=== PATIENT | male | born 1965 | race African-American/Black ===

== ENCOUNTER 2020-07-07 09:51 | Outpatient (REF) | payer MEDICARE, MEDICAID, SELFPAY ==
[2020-07-07 12:02] LABS: PSA,Total (Free>4and<10) 4.53 ng/mL (0.00-4.00)
[2020-07-10 12:17] LABS: Free Prostate Spec Ag 0.7 ng/mL; Percent Free Prostate Spec Ag 16 % (calc) (>25); Prostate Specific Ag Total 4.5 ng/mL (< OR = 4.0)
== END 2020-07-07 09:52 | disposition home or self-care (01) ==
LOC: HO.LAB 09:51
PROVIDERS: PCP Internal Medicine; Visit Provider Urology
DX: R97.20 Elevated prostate specific antigen [PSA] (principal); Z12.5 Encounter for screening for malignant neoplasm of prostate
CPT/HCPCS: 84153

== ENCOUNTER 2020-08-02 14:24 | Outpatient (REF) | payer MEDICARE, MEDICAID, SELFPAY ==
[2020-08-02 15:11] LABS: Influenza A PCR NEGATIVE (Negative); Influenza B PCR NEGATIVE (Negative); Resp Syncy Virus RNA Qual PCR NEGATIVE (Negative); SARS COV2 PCR INHOUSE POSITIVE (Negative)
== END 2020-08-02 14:25 | disposition home or self-care (01) ==
LOC: HO.LNP 14:24
PROVIDERS: Visit Provider Internal Medicine
DX: Z20.828 Contact with and (suspected) exposure to other viral communicable diseases (principal); R05 Cough; R09.89 Other specified symptoms and signs involving the circulatory and respiratory systems
CPT/HCPCS: 0241U

== ENCOUNTER 2020-08-06 10:24 | Emergency (ER) | payer MEDICARE, MEDICAID, SELFPAY ==
[2020-08-06 10:39] VITALS: BP 153/83; PULSE 75; RESP 20; TEMP 37.2; O2SAT 96; BMI 34.5
--- NOTE | 2020-08-06 11:17 | ECG_ITS ---
Test Reason : SOB Blood Pressure : / mmHG Vent. Rate : 072 BPM Atrial Rate : 072 BPM P-R Int : 140 ms QRS Dur : 082 ms QT Int : 344 ms P-R-T Axes : 039 012 061 degrees QTc Int : 376 ms Normal sinus rhythm Nonspecific T wave abnormality Abnormal ECG When compared with ECG of 19-SEP-2016 12:45, QT has shortened Referred By: Tash Kumar Electronically Signed By:NICOLE MORENO MD
--- NOTE | 2020-08-06 11:17 | XR_ITS ---
EXAMINATION: XR CHEST CLINICAL INFORMATION: Covid positive. Cough. COMPARISON: 07/21/19. 06/18/19. TECHNIQUE: Frontal view of the chest was obtained. FINDINGS: No significant abnormality is noted involving the heart, lungs, mediastinum, bony thorax or soft tissues. No focal consolidation is demonstrated. XR/XR chest 1V IMPRESSION: Unremarkable examination.
--- NOTE | 2020-08-06 11:25 | CT_ITS ---
EXAMINATION: CT HEAD WITHOUT CONTRAST CLINICAL INFORMATION: Headache with history of stroke and Covid. COMPARISON: None TECHNIQUE: Contiguous axial imaging was performed from the skull base to vertex without intravenous administration of contrast. This CT examination was performed using dose optimization techniques as appropriate, variously including the following: *Automated exposure control *Adjustment of mA and/or kV according to patient size (this includes techniques or standardized protocols for targeted exams where dose is matched to indication/reason for exam; i.e. extremities or head) *Use of iterative reconstruction technique DLP: 684 mGy-cm FINDINGS: There is no evidence of acute intracranial hemorrhage or territorial infarction. There is an old right MCA territory infarction/encephalomalacia. There is lacunar infarction the posterior limb of right internal capsule. No abnormal mass effect or midline shift is seen. Rao to white matter differentiation is well preserved. No extra-axial fluid collections are identified. The right lateral ventricle is slightly prominent secondary to encephalomalacia. Otherwise the lateral ventricles are not enlarged but asymmetrical. There is no abnormal attenuation within the brain parenchyma. The osseous structures and soft tissues are normal. The mastoid air cells and visualized portions of the paranasal sinuses are well aerated. There is mild paradoxical right middle turbinate with mehreen bullosa. CT/CT head/brain wo con IMPRESSION: No acute intracranial process. Right frontal lobe encephalomalacia and a lacunar infarction right posterior limb internal capsule. Mild prominence of right lateral ventricle secondary to encephalomalacia.
[2020-08-06] MEDS: Butalb/Acetamin/Caff 50/325/40 TABLET 2 TAB PO (11:32)
[2020-08-06 11:48] LABS: Basophils Percent Auto 0.3 % (0-2); Hematocrit 38.5 % (42-52); Hemoglobin 12.9 g/dl (14.0-18.0); Imm Gran Abs Auto 0.02 X10*3/uL (0.00-0.03); Imm Gran Pct Auto 0.6 % (0.0-0.4); Lymphocytes Absolute Auto 0.6 X10*3/uL (1.2-4.9); Lymphocytes Percent Auto 18.3 % (20-40); MANUAL DIFF FLAG SCAN; Mean Corpuscular HGB Conc 33.5 g/dl (31.0-36.0); Mean Corpuscular Hemoglobin 29.7 pg (27.0-33.0); Mean Corpuscular Volume 88.7 fL (80-98); Mean Platelet Volume 10.7 fL (9.4-12.4); Monocytes Absolute Auto 0.3 X10*3/uL (0.1-1.2); Monocytes Percent Auto 7.4 % (2-11); Neutrophils Absolute Auto 2.6 X10*3/uL (2.0-8.3); Neutrophils Percent Auto 73.4 % (45-73); Platelet Count 153 X10*3/uL (160-400); Red Blood Count 4.34 X10*6/uL (4.60-5.80); SCAN SMEAR FLAG 1; White Blood Count 3.5 X10*3/uL (4.8-10.8)
[2020-08-06 12:05] LABS: INTERNATIONAL NORM RATIO 1.1 (0.9-1.1); Prothrombin Time 13.4 SEC (10.8-13.0)
[2020-08-06 12:08] LABS: Alanine Aminotransferase 21 U/L (0-40); Albumin Level 3.9 g/dL (3.5-5.0); Alkaline Phosphatase 36 U/L (39-117); Anion Gap 14 (12-20); Aspartate Amino Transferase 20 U/L (5-37); Bilirubin Direct 0.2 mg/dL (0.0-0.5); Bilirubin Total 0.6 mg/dL (0.0-1.0); Blood Urea Nitrogen 8 mg/dL (9-16); Calcium 8.2 mg/dL (8.4-10.2); Carbon Dioxide 27 mmol/L (22-29); Chloride 98 mmol/L (96-108); Creatinine Clr Calc Pharmacy 84.4; Estimated Glomerular Filt Rate > 60; Glucose Random 199 mg/dL (60-115); Magnesium 1.5 mg/dL (1.6-2.6); Potassium 3.8 mmol/l (3.3-5.1); Sodium 135 mmol/L (135-145); Total Protein 7.1 g/dL (6.5-8.0)
[2020-08-06 12:09] LABS: SLIDE REVIEW VERIFIED
[2020-08-06 12:14] LABS: B Type Natriuretic Peptide 32 pg/mL (<100)
--- NOTE | 2020-08-06 13:08 | ED_ITS ---
HPI - Headache General Chief Complaint: Headache Stated Complaint: covid +, headache Time Seen by Provider: 08/06/20 10:49 Source: patient Mode of arrival: ambulatory Limitations: no limitations History of Present Illness HPI Narrative: 54yoM c PMHx of CVA c residual right sided weakness, DM, HTN and depression who was recently dx c COVID-19 on friday presenting to the ED c c/o of a headache to the right sided of his head since he found out he had covid and a intermittent productive cough. Reports the headache started gradually and it feels like a pressure in sensation. Denies this occurring during intercourse, while eating, or during exertion or activity. Denies known CO2 exposure. Denies recent tick bites. Denies recent spinal/epidural procedure. Denies new medications. Denies any other symptom complaints or concerns at this time Related Data Previous Rx's Medication Instructions Recorded azithromycin See Rx Instructions .ROUTE 08/06/20 .COMPLEX #6 tab lowqoqecrp-veilesldubqpq-lqcc 1 cap PO Q8H PRN #10 cap 08/06/20 [Fioricet] Allergies Allergy/AdvReac Type Severity Reaction Status Date / Time No Known Allergies Allergy Verified 08/06/20 10:45 [No Known Allergies*] Review of Systems Review of Systems: Constitutional : No changes in activity, No lethargy, No recent prior head injury, No agitation, No increased fussiness ENT/Mouth : No Ear Pain, No Nasal discharge/drainage Eyes: No Eye Pain, No Swelling, No Redness, No Foreign Body, No Vision Changes Cardiovascular : No Chest Pain, No SOB Respiratory : + Cough/sputum production Gastrointestinal : No Nausea, No Vomiting, No abdominal Pain Genitourinary : No Dysuria, No Urinary Frequency, No Urinary Incontinence, No Urgency, No Flank Pain Musculoskeletal : No joint pain, No neck stiffness, No back pain/injury Skin : No lacerations Neuro : No unsteady gait, No Paresthesias, No Loss of Consciousness, No altered mental status, No dizziness, + Headache Denies past medical history of HIV, recent trauma, coagulopathy, recent spinal/ epidural procedure, new medication, URI symptoms, close contacts with similar symptoms, tick bite, or known CO2 exposure. Yes all other systems are reviewed and are negative PMFSH Past Medical History Attestation statement: The following information was validated with the patient. Medical History Depression Diabetes HTN (hypertension) Stroke Social History Social History Smoked in Last 30 Days: No Use of substances other than those prescribed or required for medical reasons: No Advance Directives: No Advance Directives Information Provided: No Physical Exam Vital Signs: Vital Signs: Last Vital Signs Temp 99.0 F 08/06/20 10:39 Pulse 75 08/06/20 10:39 Resp 20 08/06/20 10:39 BP 153/83 H 08/06/20 10:39 Pulse Ox 96 08/06/20 10:39 Body Mass Index 34.5 Vital signs have been reviewed as normal and appeared to be correct. Blood pressure normal. Heart rate normal. Respiration rate normal. Temperature normal. Oxygen saturation normal. Appearance: Alert. Oriented X3. No acute distress. Head: Normal external exam. Normocephalic. Atraumatic. Able to rotate head bilaterally. Eyes: PERRLA. EOMI. No nystagmus noted. Conjunctiva and sclera normal. Eyelids n ormal. Corneal reflex normal. ENT: EAC normal. TM's Normal. Hearing normal. Pharynx normal. Uvula midline. tongue midline. Moist mucous membranes. No trismus noted. No drooling noted. No muffled voice noted. Neck: Normal inspection. Neck supple. FROM. No adenopathy. Thyroid Normal. No meningeal signs. No neck mass noted. CVS: Normal heart rate and rhythm. Heart sound normal. No murmurs noted. Pulses normal throughout. Respiratory: No respiratory distress. Painless inspiration. Breath sounds normal. No wheezes/rales/rhonchi noted. Chest nontender. No accessory muscle usage noted or decreased air movement noted. Back: Full range of motion noted. Skin: Skin warm and dry. Normal skin color. Normal skin turgor. No rashes/lesions/lacerations noted. Extremities: Extremities exhibit normal range of motion. Extremities nontender. Able to shrug shoulders bilaterally and keep up against resistance. Neuro: Oriented X 3. Patient has residual left sided weakness at baseline pr patient. Otherwise no new motor/sensory deficit. Cranial nerves II-XI intact bilaterally. Facial strength normal. Normal cognition. Speech mildly slurred. Gait WNL per patient. Strength 5/5 throughout on the entire right sided. Left sided weakness at baseline. No tremor noted. No fasciculations noted. Muscle tone WNL per patient. No asterixis noted. Zgirrz-ww-fcme test normal. Heel to tineo test normal. No rigidity noted. NIHSS score 0. Course Course Course Narrative: - Patient afebrile, resting comfortably in no distress. Non- toxic appearing. Patient denies any recent trauma/injury to head. Neurological exam shows no deficits and at baseline per patient. BP WNL. Denies any changes in vision. Patient ambulates without increased difficulty. Given the history, and physical - most likely diagnosis: Migraine ROJAS. Although due to patient reporting that this is longer than her usual headaches will obtain CT scan of brain to evaluate for any acute processes. Will treat pain. Will d/c with ruddy mak and advised to follow - up with PCP. Patient demonstrated good understanding of signs and symptoms to return to ED for further testing should sx worsen. gradual onset ROJAS. SAH: unlikely given gradual onset Intracranial bleed: unlikely given neg trauma Meningitis: unlikely given pt afebrile, neg stiff neck. Exam without signs of meningismus Temporal arteritis: Unlikely given Neg jaw claudication, no temporal tenderness or nodularity on exam. Cerebral venous thrombosis: unlikely given no h/o hypercoaguable state, no chronic head/neck infection. Reevaluation(s) Reevaluation #1: patient was given p.o. for your ascend reported he felt better. Magnesium mildly low therefore given p.o. magnesium otherwise all other labs are within normal limits. EKG normal sinus rhythm no acute ischemic changes noted. CT scan of brain revealed chronic changes no acute processes noted. Chest x-ray within normal limits no acute processes noted. Therefore will DC home instructions to return if any new or worsening symptoms symptomatic treatment along with instructions to follow-up with primary care provider. Vani oshea's agrees the plan. MDM - Headache Medical Records Attestation: I reviewed the patient's medical records. Lab Data Attestation: I reviewed the patient's lab results. Result diagrams: 08/06/20 11:35 08/06/20 11:35 Labs: Lab Results 08/06/20 08/06/20 08/06/20 Range/Units 11:35 11:35 11:35 WBC 3.5 L (4.8-10.8) X10*3/uL RBC 4.34 L (4.60-5.80) X10*6/uL Hgb 12.9 L (14.0-18.0) g/dl Hct 38.5 L (42-52) % MCV 88.7 (80-98) fL MCH 29.7 (27.0-33.0) pg MCHC 33.5 (31.0-36.0) g/dl RDW 12.0 (11.0-16.0) % Plt Count 153 L (160-400) X10*3/uL MPV 10.7 (9.4-12.4) fL Immature Gran % (Auto) 0.6 H (0.0-0.4) % Neut % (Auto) 73.4 H (45-73) % Lymph % (Auto) 18.3 L (20-40) % [place] % (Auto) 7.4 (2-11) % Eos % (Auto) 0.0 (0-4) % Baso % (Auto) 0.3 (0-2) % Lymph # (Auto) 0.6 L (1.2-4.9) X10*3/uL [place] # (Auto) 0.3 (0.1-1.2) X10*3/uL Eos # (Auto) 0.0 (0.0-0.4) X10*3/uL Baso # (Auto) 0.0 (0.0-0.2) X10*3/uL Abs Immat Gran (auto) 0.02 (0.00-0.03) X10*3/uL Absolute Neuts (auto) 2.6 (2.0-8.3) X10*3/uL Absolute Nucleated RBC 0.000 (0.0-0.012) X10*3/uL Nucleated RBC % (auto) 0.0 (0.0-0.2) /100WBC Smear Tech's Comments VERIFIED Hold Purple Top SEE NOTE PT 13.4 H (10.8-13.0) SEC INR 1.1 (0.9-1.1) Sodium (135-145) mmol/L Potassium (3.3-5.1) mmol/l Chloride (96-108) mmol/L Carbon Dioxide (22-29) mmol/L Anion Gap (12-20) BUN (9-16) mg/dL Creatinine (0.5-1.4) mg/dL Estim Creat Clear Calc Estimated GFR Random Glucose (60-115) mg/dL Calcium (8.4-10.2) mg/dL Magnesium (1.6-2.6) mg/dL Total Bilirubin (0.0-1.0) mg/dL Direct Bilirubin (0.0-0.5) mg/dL AST (5-37) U/L ALT (0-40) U/L Alkaline Phosphatase (39-117) U/L B-Natriuretic Peptide (<100) pg/mL Total Protein (6.5-8.0) g/dL Albumin (3.5-5.0) g/dL 08/06/20 08/06/20 Range/Units 11:35 11:35 WBC (4.8-10.8) X10*3/uL RBC (4.60-5.80) X10*6/uL Hgb (14.0-18.0) g/dl Hct (42-52) % MCV (80-98) fL MCH (27.0-33.0) pg MCHC (31.0-36.0) g/dl RDW (11.0-16.0) % Plt Count (160-400) X10*3/uL MPV (9.4-12.4) fL Immature Gran % (Auto) (0.0-0.4) % Neut % (Auto) (45-73) % Lymph % (Auto) (20-40) % [place] % (Auto) (2-11) % Eos % (Auto) (0-4) % Baso % (Auto) (0-2) % Lymph # (Auto) (1.2-4.9) X10*3/uL [place] # (Auto) (0.1-1.2) X10*3/uL Eos # (Auto) (0.0-0.4) X10*3/uL Baso # (Auto) (0.0-0.2) X10*3/uL Abs Immat Gran (auto) (0.00-0.03) X10*3/uL Absolute Neuts (auto) (2.0-8.3) X10*3/uL Absolute Nucleated RBC (0.0-0.012) X10*3/uL Nucleated RBC % (auto) (0.0-0.2) /100WBC Smear Tech's Comments Hold Purple Top PT (10.8-13.0) SEC INR (0.9-1.1) Sodium 135 (135-145) mmol/L Potassium 3.8 (3.3-5.1) mmol/l Chloride 98 (96-108) mmol/L Carbon Dioxide 27 (22-29) mmol/L Anion Gap 14 (12-20) BUN 8 L (9-16) mg/dL Creatinine 0.96 (0.5-1.4) mg/dL Estim Creat Clear Calc 84.4 Estimated GFR > 60 Random Glucose 199 H (60-115) mg/dL Calcium 8.2 L (8.4-10.2) mg/dL Magnesium 1.5 L (1.6-2.6) mg/dL Total Bilirubin 0.6 (0.0-1.0) mg/dL Direct Bilirubin 0.2 (0.0-0.5) mg/dL AST 20 (5-37) U/L ALT 21 (0-40) U/L Alkaline Phosphatase 36 L (39-117) U/L B-Natriuretic Peptide 32 (<100) pg/mL Total Protein 7.1 (6.5-8.0) g/dL Albumin 3.9 (3.5-5.0) g/dL Imaging Data CT scan of brain: Attestation: I personally reviewed and interpreted this imaging study as follows: Radiologist's impression: IMPRESSION: No acute intracranial process. Right frontal lobe encephalomalacia and a lacunar infarction right posterior limb internal capsule. Mild prominence of right lateral ventricle secondary to encephalomalacia. Chest x-ray: Attestation: I personally reviewed and interpreted this imaging study as follows: Radiologist's impression: IMPRESSION: Unremarkable examination. ECG Data Attestation: I personally reviewed and interpreted this ECG as follows: ECG interpretation date: 08/06/20 ECG interpretation time: 11:25 Interpretation: normal sinus rhythm with a ventricular rate of 72 with normal [place] interval with nonspecific T-wave abnormalities otherwise no acute ischemic changes noted. Similar when compared to prior 09/19/2016 Discharge Plan Discharge Clinical Impression: Headache, COVID-19, Low blood magnesium Patient Disposition: Home, Self-Care Instructions: Acute Headache (ED), COVID-19 (Coronavirus Disease 2019) (ED) Prescriptions: New azithromycin 250 mg tablet See Rx Instructions .ROUTE .COMPLEX Qty: 6 RF: 0 hjmckwgpoh-ukihdcdjfuofc-sboc [Fioricet] 50-300-40 mg capsule 1 cap PO Q8H PRN (Reason: pain) Qty: 10 RF: 0 Referrals: Phillip Floyd MD [Primary Care Provider] - 2 days Interventions: ED Discharge Assessment Last Done: 08/06/20 13:26 Discharge Date/Time: 08/06/20 13:28 Print Language: [place]
[2020-08-06] MEDS: Magnesium Oxide 400 MG TABLET PO (13:23)
== END 2020-08-06 13:28 | disposition home or self-care (01) ==
PROVIDERS: Physician Assistant Medical; Emergency Provider Internal Medicine; PCP Internal Medicine
DX: U07.1 COVID-19 (principal); R79.89 Other specified abnormal findings of blood chemistry
CPT/HCPCS: 36415; 70450; 71045; 80048; 80076; 83735; 83880; 85025; 85610; 93005; 99283; 99284

== ENCOUNTER 2020-09-07 19:59 | Emergency (ER) | payer MEDICARE, MEDICAID, SELFPAY ==
[2020-09-07 20:40] VITALS: PULSE 77; RESP 16; TEMP 37; O2SAT 97
--- NOTE | 2020-09-07 21:16 | ED.EYEPROB ---
HPI - Eye Problem General Chief complaint: Eye Problems Stated complaint: eye pain Time Seen by Provider: 09/07/20 21:15 Source: patient Mode of arrival: ambulatory Limitations: no limitations History of Present Illness HPI Narrative: 54 y/o male presenting with right eye pain for the last 3 days. He noticed some upper lid swelling that started today. He denies pain of the globe, denies foreign body sensation, vision changes, headache. No trauma. No fever or chills. He denies weakness, numbness, facial pain. He has a history of a stoke 10 years ago and reports chronic deficits. chief complaint: eye pain Onset (ago): day(s) (3) Onset description: gradual Duration: constant Location: right eye Eye Symptoms: redness and pain Place: home Mechanism: none Severity: moderate If Pain, Quality: aching Associated symptoms: none Treatments Prior to Arrival: none Related Data Previous Rx's Medication Instructions Recorded azithromycin See Rx Instructions .ROUTE 08/06/20 .COMPLEX #6 tab kbvvqpzhbx-rxdouajgabefx-ndpn 1 cap PO Q8H PRN #10 cap 08/06/20 [Fioricet] cefpodoxime 400 mg PO BID 10 Days #40 tab 09/07/20 doxycycline monohydrate 100 mg PO BID #20 cap 09/07/20 erythromycin 0.5 inch OPHTHALMIC (EYE) BID #3.5 09/07/20 g Allergies Allergy/AdvReac Type Severity Reaction Status Date / Time No Known Allergies Allergy Verified 08/06/20 10:45 [No Known Allergies*] Review of Systems Review of Systems: Constitutional: No Fever, No Chills ENT/Mouth: No sore throat, No Rhinorrhea Eyes: + Eye Pain, + Swelling, + Redness, No vision changes, No discharge Cardiovascular: No Chest Pain, No SOB Respiratory: No Cough, No Sputum, No Wheezing, No dyspnea Gastrointestinal: No Nausea, No Vomiting, No Diarrhea, No abdominal Pain Musculoskeletal: No joint pain, No Myalgias Skin: No Skin Lesions, No rash Neuro: No Weakness, No Numbness, No Dizziness, No Headache PMFSH Past Medical History Attestation statement: The following information was validated with the patient. Medical History Depression Diabetes HTN (hypertension) Stroke Social History Social History Alcohol intake: never Smoked in Last 30 Days: No Use of substances other than those prescribed or required for medical reasons: No Advance Directives: No Advance Directives Information Provided: Yes Physical Exam Vital Signs: Vital Signs: Last Vital Signs Temp 98.6 F 09/07/20 20:40 Pulse 77 09/07/20 20:40 Resp 16 09/07/20 20:40 Pulse Ox 97 09/07/20 20:40 Body Mass Index 3.4 Appearance: Alert. Oriented X3. No acute distress. Eyes: right upper eye lid with mild edema extending laterally and superiorly with mild erythema and warmth. Pupils equal, round and reactive to light. EOMI. moderate injection laterally without discharge. Fluroescene exam with small linear abrasion at 9oclock, no ulcerations ENT: Pharynx normal. Neck: Normal inspection. Neck supple. Skin: Skin warm and dry. Normal skin color. Normal skin turgor. No rashes. Neuro: Oriented X 3. Ambulated with cane, right hand contracture. Course Course Course Narrative: 54 y/o male presenting with right eye pain x3 days. Mild erythema and warmth on exam - will treat wtih dual coverage for periorbital cellulitis. Small corneal abrasion as well. Not septic appearing. He agrees to follow up with PCP tomorrow and instructed to return to ER if symptoms worsen. Stable for d/c. Discharge Plan Discharge Clinical Impression: Corneal abrasion Qualifiers: Encounter type: initial encounter Laterality: right Qualified Code(s): S05.01XA - Injury of conjunctiva and corneal abrasion without foreign body, right eye, initial encounter Periorbital cellulitis Qualifiers: Laterality: right Qualified Code(s): L03.213 - Periorbital cellulitis Patient Disposition: Home, Self-Care Instructions: Corneal Abrasion (ED), Periorbital Cellulitis in Adults (ED) Additional Instructions: You have a skin infection that is starting around your eye. Take the prescribed medications for this. You also have a small scratch on your eye. Use the antibiotic drops for this. Follow up with your doctor tomorrow. If your symptoms worsen come back to the ER right away. Prescriptions: New doxycycline monohydrate 100 mg capsule 100 mg PO BID Qty: 20 RF: 0 cefpodoxime 200 mg tablet 400 mg PO BID 10 Days Qty: 40 RF: 0 erythromycin 5 mg/gram (0.5 %) ointment 0.5 inch ophthalmic (eye) BID Qty: 3.5 RF: 0 No Action azithromycin 250 mg tablet See Rx Instructions .ROUTE .COMPLEX Qty: 6 RF: 0 nzaldvawxj-vepkuudajmlhh-lmxc [Fioricet] 50-300-40 mg capsule 1 cap PO Q8H PRN (Reason: pain) Qty: 10 RF: 0 Referrals: Bob Birmingham [Physician] - 2 days Interventions: ED Discharge Assessment Last Done: 09/07/20 21:47 Discharge Date/Time: 09/07/20 22:12 Print Language: [place]ian
--- NOTE | 2020-09-07 21:45 | PC.NURSE ---
patient a&ox3, vss, pt awaiting to discharge, drum saw operator called, will continue to monitor.
[2020-09-07] MEDS: Fluorescein Sodium STRIP 1 STRIP EYE-BOTH (21:49)
[2020-09-07] MEDS: Tetracaine HCl/PF 0.5% Oph Sol 4 ML DROPS 1 DROP EYE-RIGHT (21:49)
--- NOTE | 2020-09-07 21:49 | PC.NURSE ---
medications given by the provider
== END 2020-09-07 22:12 | disposition home or self-care (01) ==
PROVIDERS: Emergency Provider Emergency Medicine; PCP Internal Medicine
DX: S05.01XA Injury of conjunctiva and corneal abrasion without foreign body, right eye, initial encounter (principal); X58.XXXA Exposure to other specified factors, initial encounter; L03.213 Periorbital cellulitis; E11.9 Type 2 diabetes mellitus without complications; I10 Essential (primary) hypertension; Y93.9 Activity, unspecified; Y92.9 Unspecified place or not applicable; Y99.9 Unspecified external cause status
CPT/HCPCS: 99283

== ENCOUNTER → 2020-09-12 13:13 | Outpatient (BNVA) | payer MEDICARE, MEDICAID, SELFPAY | PROVIDERS: PCP Internal Medicine; Referring Provider Internal Medicine; Visit Provider Urology | DX: R97.20 Elevated prostate specific antigen [PSA] (principal) | CPT/HCPCS: Q3014 ==

== ENCOUNTER 2020-10-09 10:55 | Outpatient (REF) | payer MEDICARE, MEDICAID, SELFPAY ==
[2020-10-09 13:52] LABS: MANUAL DIFF FLAG NO
[2020-10-09 13:59] LABS: Basophils Percent Auto 0.5 % (0-2); Eosinophils Absolute Auto 0.1 X10*3/uL (0.0-0.4); Eosinophils Percent Auto 1.6 % (0-4); Hematocrit 39.1 % (42-52); Hemoglobin 13.3 g/dl (14.0-18.0); Imm Gran Abs Auto 0.01 X10*3/uL (0.00-0.03); Imm Gran Pct Auto 0.3 % (0.0-0.4); Lymphocytes Absolute Auto 1.2 X10*3/uL (1.2-4.9); Lymphocytes Percent Auto 31.9 % (20-40); Mean Corpuscular Volume 88.1 fL (80-98); Mean Platelet Volume 11.4 fL (9.4-12.4); Monocytes Absolute Auto 0.4 X10*3/uL (0.1-1.2); Monocytes Percent Auto 9.7 % (2-11); Neutrophils Absolute Auto 2.1 X10*3/uL (2.0-8.3); Platelet Count 244 X10*3/uL (160-400); Red Blood Count 4.44 X10*6/uL (4.60-5.80); Red Cell Distribution Width 12.6 % (11.0-16.0); White Blood Count 3.8 X10*3/uL (4.8-10.8)
[2020-10-09 14:19] LABS: Glucose Urine UA NEG (NEG); Leukocyte Esterase Urine NEG (NEG); Nitrite Urine NEG (NEG); Specific Gravity - Urine 1.015 (1.005-1.025); Urine Blood NEG (NEG); Urine Ketones NEG (NEG); Urine Protein 1+ MG/DL (NEG-TRACE)
[2020-10-09 14:27] LABS: Alanine Aminotransferase 16 U/L (0-40); Albumin Level 4.2 g/dL (3.5-5.0); Alkaline Phosphatase 43 U/L (39-117); Anion Gap 11 (12-20); Aspartate Amino Transferase 14 U/L (5-37); Bilirubin Total 0.9 mg/dL (0.0-1.0); Blood Urea Nitrogen 10 mg/dL (9-16); Calcium 9.1 mg/dL (8.4-10.2); Carbon Dioxide 33 mmol/L (22-29); Chloride 100 mmol/L (96-108); Estimated Glomerular Filt Rate > 60; Glucose Random 91 mg/dL (60-115); Potassium 3.9 mmol/L (3.3-5.1); Sodium 140 mmol/L (135-145); Total Protein 7.6 g/dL (6.5-8.0)
[2020-10-09 14:35] LABS: Estimated Average Glucose 146 mg/dL; Hemoglobin A1c % 6.7 %
[2020-10-09 14:49] LABS: Appearance Urine CLEAR; Color Urine YELLOW
[2020-10-09 14:56] LABS: PSA,Total (Free>4and<10) 6.59 ng/mL (0.00-4.00)
[2020-10-09 14:56] LABS: Creatinine Urine 161.76 mg/dL; Microalbum/Creatinine Ratio Ur 268.2 ug/mg cr
[2020-10-09 15:07] LABS: RBC Urine 0-2 /HPF (0); WBC Urine 0-2 /HPF (0-4)
[2020-10-10 11:03] LABS: Free Prostate Spec Ag 0.9 ng/mL; Percent Free Prostate Spec Ag 15 % (calc) (>25); Prostate Specific Ag Total 5.9 ng/mL (< OR = 4.0)
== END 2020-10-09 10:56 | disposition home or self-care (01) ==
LOC: HO.10HDL 10:55
PROVIDERS: Visit Provider Internal Medicine
DX: E11.9 Type 2 diabetes mellitus without complications (principal); I10 Essential (primary) hypertension; E78.00 Pure hypercholesterolemia, unspecified; R97.20 Elevated prostate specific antigen [PSA]; Z12.5 Encounter for screening for malignant neoplasm of prostate
CPT/HCPCS: 36415; 80053; 81001; 81003; 82043; 83036; 84153; 84154; 85025

== ENCOUNTER 2020-11-17 11:31 | Emergency (ER) | payer MEDICARE, MEDICAID, SELFPAY ==
--- NOTE | ~2020-11-17 | XR_ITS ---
EXAMINATION: LEFT LOWER LEG ANKLE AND FOOT X-RAY CLINICAL INFORMATION: Pain post fall COMPARISON: None TECHNIQUE: 2 views of the left lower leg and 3 views of the left foot and ankle FINDINGS: Left ankle: There is an oblique nondisplaced fracture of the lateral malleolus. No other fracture is seen. The ankle mortise is normal. There is lateral soft tissue swelling. Left foot: Bone alignment is normal. No fracture or dislocation is seen. Joint spaces are normal. There are calcaneal spurs. Soft tissues are normal. Left lower leg: Bone alignment is normal. No fracture or dislocation is seen. Joint spaces and soft tissues are normal. XR/XR tibia fibula LT 2V IMPRESSION: Oblique nondisplaced fracture of the lateral malleolus otherwise unremarkable exam.
--- NOTE | ~2020-11-17 | XR_ITS ---
EXAMINATION: LEFT LOWER LEG ANKLE AND FOOT X-RAY CLINICAL INFORMATION: Pain post fall COMPARISON: None TECHNIQUE: 2 views of the left lower leg and 3 views of the left foot and ankle FINDINGS: Left ankle: There is an oblique nondisplaced fracture of the lateral malleolus. No other fracture is seen. The ankle mortise is normal. There is lateral soft tissue swelling. Left foot: Bone alignment is normal. No fracture or dislocation is seen. Joint spaces are normal. There are calcaneal spurs. Soft tissues are normal. Left lower leg: Bone alignment is normal. No fracture or dislocation is seen. Joint spaces and soft tissues are normal. XR/XR foot LT min 3V IMPRESSION: Oblique nondisplaced fracture of the lateral malleolus otherwise unremarkable exam.
--- NOTE | ~2020-11-17 | XR_ITS ---
EXAMINATION: LEFT LOWER LEG ANKLE AND FOOT X-RAY CLINICAL INFORMATION: Pain post fall COMPARISON: None TECHNIQUE: 2 views of the left lower leg and 3 views of the left foot and ankle FINDINGS: Left ankle: There is an oblique nondisplaced fracture of the lateral malleolus. No other fracture is seen. The ankle mortise is normal. There is lateral soft tissue swelling. Left foot: Bone alignment is normal. No fracture or dislocation is seen. Joint spaces are normal. There are calcaneal spurs. Soft tissues are normal. Left lower leg: Bone alignment is normal. No fracture or dislocation is seen. Joint spaces and soft tissues are normal. XR/XR ankle LT 2V IMPRESSION: Oblique nondisplaced fracture of the lateral malleolus otherwise unremarkable exam.
[2020-11-17 11:57] VITALS: BP 162/75; PULSE 66; RESP 16; TEMP 36.9; O2SAT 97; BMI 34.3
--- NOTE | 2020-11-17 12:31 | ED_ITS ---
HPI - Extremity Injury (Lower) General Chief Complaint: Extremity Injury, Lower Stated Complaint: FALL AT HOME Time Seen by Provider: 11/17/20 12:05 Source: patient Mode of arrival: ambulatory History of Present Illness HPI Narrative: 55-year-old male with a past medical history of depression, diabetes, hypertension, CVA with left-sided residual deficits, presenting to the ED complaining of left ankle/foot pain and swelling s/p mechanical fall down 1 step last night. Also reported abrasion to left knee. Reports put foot down on last step and sneaker got caught/leg gave out, fell to ground, denies hitting head or LOC. reports associated numbness in left lower extremity. States left lower extremity chronically swollen, unchanged. Denies symptoms prior to fall. Denies new weakness, headache, injury to the area MD complaint: ankle injury, foot injury and fall Related Data Home Medications Medication Instructions Recorded Confirmed amlodipine 10 mg tablet mg PO 09/12/20 citalopram 20 mg tablet mg PO 09/12/20 insulin glargine 100 unit/mL (3 unit SUBCUT 09/12/20 mL) subcutaneous pen metoprolol tartrate 50 mg tablet mg PO 09/12/20 pen needle, diabetic 31 gauge x #50 ea 09/12/2011/14 pen needle, diabetic 31 gauge x #1200 ea 09/12/2001/14 Previous Rx's Medication Instructions Recorded azithromycin See Rx Instructions .ROUTE 08/06/20 .COMPLEX #6 tab uzlzpngmti-yjzlagozihjhw-iaub 1 cap PO Q8H PRN #10 cap 08/06/20 [Fioricet] cefpodoxime 400 mg PO BID 10 Days #40 tab 09/07/20 doxycycline monohydrate 100 mg PO BID #20 cap 09/07/20 erythromycin 0.5 inch OPHTHALMIC (EYE) BID #3.5 09/07/20 g Allergies Allergy/AdvReac Type Severity Reaction Status Date / Time No Known Allergies Allergy Verified 08/06/20 10:45 [No Known Allergies*] Review of Systems Review of Systems: Constitutional: No Fever, No Chills Cardiovascular: No Chest Pain, No SOB Gastrointestinal: No Nausea, No Vomiting Musculoskeletal: + joint pain, No Myalgias, + Joint Swelling Skin: No Skin Lesions, No rash Neuro: No Weakness, + Numbness, No Paresthesias, no headache, no LOC, no head trauma Yes all other systems are reviewed and are negative Neurologic: Denies Sensory deficit (Neuro) [facility] Past Medical History Attestation statement: The following information was validated with the patient. Medical History Depression Diabetes Elevated PSA HTN (hypertension) Stroke Social History Social History Alcohol intake: never Smoked in Last 30 Days: No Use of substances other than those prescribed or required for medical reasons: No Advance Directives: No Advance Directives Information Provided: No Physical Exam Vital Signs: Vital Signs: Last Vital Signs Temp 98.4 F 11/17/20 11:57 Pulse 66 11/17/20 11:57 Resp 16 11/17/20 11:57 BP 162/75 H 11/17/20 11:57 Pulse Ox 97 11/17/20 11:57 Body Mass Index 34.3 Const: General: cooperative, healthy appearing and comfortable Michael entation/consciousness: patient oriented x3 Limitations: no limitations HENMT: Head: Yes normal to inspection Ears: hearing grossly normal bilaterally General nose exam: Normal external nose present Face and sinus: Yes normal facial exam Eyes: General: appearance normal, both eyes and all related structures EOM: EOMs intact bilaterally Neck: Neck: Yes normal visual inspection and Yes no meningeal signs Resp: Effort & Inspection: normal respiratory effort Cardio: Rate: regular rate Peripheral pulses: dorsalis pedis present Skin: Other: Small abrasion noted to left knee Rashes: no rashes Neuro: Other: Sensation intact to light touch General: patient oriented x3, tone normal, moves all extremities and no meningeal signs Gait exam (Neuro): Normal gait present Sensory Exam: No Sensory deficit (Neuro) Extrem: Other: Left lower extremity with notable chronic swelling (per patient) Left knee nontender, FROM intact Left tibia/fibula nontender, left ankle with +ttp > medial malleolus. With limited ROM secondary to pain Left foot with mild tenderness greater medially. FROM intact to toes. Sensation intact to light touch. Neurovascularly intact General: Yes normal to inspection Course Course Course Narrative: -1300--ED care transferred to [facility] pending imaging results MDM - Extremity Injury (Lower) MDM Narrative Medical decision making narrative: Rule out fracture/dislocation vs sprain Discharge Plan Discharge Prescriptions: No Action azithromycin 250 mg tablet See Rx Instructions .ROUTE .COMPLEX Qty: 6 RF: 0 dhndedrkks-lihntsisckrbg-vzku [Fioricet] 50-300-40 mg capsule 1 cap PO Q8H PRN (Reason: pain) Qty: 10 RF: 0 doxycycline monohydrate 100 mg capsule 100 mg PO BID Qty: 20 RF: 0 cefpodoxime 200 mg tablet 400 mg PO BID 10 Days Qty: 40 RF: 0 erythromycin 5 mg/gram (0.5 %) ointment 0.5 inch ophthalmic (eye) BID Qty: 3.5 RF: 0 Lantus Solostar U-100 Insulin 100 unit/mL (3 mL) insulin pen subcut RF: 0 metoprolol tartrate 50 mg tablet PO RF: 0 amlodipine 10 mg tablet PO RF: 0 citalopram 20 mg tablet PO RF: 0 (DME) pen needle, diabetic 31 gauge x 3/16 needle See Rx Instructions ea subcut .MEDSUPPLY Qty: 50 RF: 0 (DME) pen needle, diabetic 31 gauge x 5/16 needle See Rx Instructions ea .ROUTE .MEDSUPPLY Qty: 1200 RF: 0
== END 2020-11-17 14:26 | disposition home or self-care (01) ==
PROVIDERS: Emergency Provider Emergency Medicine Emergency Medical Services; PCP Internal Medicine
DX: S82.65XA Nondisplaced fracture of lateral malleolus of left fibula, initial encounter for closed fracture (principal); S80.212A Abrasion, left knee, initial encounter; W10.8XXA Fall (on) (from) other stairs and steps, initial encounter; E11.9 Type 2 diabetes mellitus without complications; I10 Essential (primary) hypertension; Z86.73 Personal history of transient ischemic attack (TIA), and cerebral infarction without residual deficits; Y93.89 Activity, other specified; Y92.018 Other place in single-family (private) house as the place of occurrence of the external cause; Y99.9 Unspecified external cause status; Z79.4 Long term (current) use of insulin
CPT/HCPCS: 73590; 73600; 73630; 99283

== ENCOUNTER 2020-11-27 08:35 | Outpatient (REF) | payer MEDICARE, MEDICAID, SELFPAY ==
--- NOTE | ~2020-11-27 | XR_ITS ---
EXAMINATION: XR ANKLE, LEFT CLINICAL INFORMATION: Pain. COMPARISON: 11/17/2020 TECHNIQUE: AP, lateral, and mortise views of the left ankle. FINDINGS: There is again noted to be a nondisplaced oblique fracture through the left lateral malleolus. There is no widening of the medial joint space. There is a large amount of soft tissue swelling seen about the ankle and foot. No significant periosteal new bone formation is appreciated. XR/XR ankle LT min 3V IMPRESSION: No change in alignment of nondisplaced lateral malleolar fracture.
== END 2020-11-27 08:36 | disposition home or self-care (01) ==
LOC: HO.HOSX 08:35
PROVIDERS: Visit Provider Physician Assistant
DX: S82.63XA Displaced fracture of lateral malleolus of unspecified fibula, initial encounter for closed fracture (principal); M25.572 Pain in left ankle and joints of left foot
CPT/HCPCS: 73610; 99202

== ENCOUNTER → 2020-11-28 09:14 | Outpatient (BNVA) | payer MEDICARE, MEDICAID, SELFPAY | PROVIDERS: PCP Internal Medicine; Visit Provider Urology | DX: R97.20 Elevated prostate specific antigen [PSA] (principal); N40.1 Benign prostatic hyperplasia with lower urinary tract symptoms; R35.1 Nocturia | CPT/HCPCS: 99202 ==

== ENCOUNTER → 2020-11-28 09:45 | Outpatient (BNVA) | payer MEDICARE, MEDICAID, SELFPAY | PROVIDERS: PCP Internal Medicine; Visit Provider Urology ==

== ENCOUNTER 2020-12-07 11:27 | Outpatient (REF) | payer MEDICARE, MEDICAID, SELFPAY ==
[2020-12-07 11:46] VITALS: BMI 34.2
[2020-12-07 11:47] VITALS: BP 145/71; PULSE 69; RESP 20; TEMP 37.3; O2SAT 98
--- NOTE | 2020-12-07 12:21 | MHC.SHP ---
Pre-Procedural Eval Section A The patient is an INPATIENT: No Changes since office visit: No Cold of Flu in the past 2 weeks, No New Medical Problems, No Changes in Medication and No Patient answered all questions The History & Physical has been completed within 30 days and I have reviewed it.: Yes Section B Chief Complaint: ELEVATED PSA, PROSTATE BX IN MINOR Allergies: Allergies Allergy/AdvReac Type Severity Reaction Status Date / Time No Known Allergies Allergy Verified 08/06/20 10:45 [No Known Allergies*] Plan Diagnosis/Plan: Unchanged (prostate biopsy) I have reviewed the history and physical and performed a pertinent physical examination on my patient. No changes have occurred unless specified.
--- NOTE | 2020-12-07 12:22 | W.PM.OPN ---
Operative Note Operative Note Date of Service: 12/07/20 Narrative: Preoperative diagnosis: Elevated PSA Postoperative diagnosis: Elevated PSA Procedure: 1. transrectal ultrasound measurement of prostate 2. transrectal ultrasound-guided pudendal nerve block 3. transrectal ultrasound-guided prostate biopsy 12 core Surgeon: Dr. Khurram Rodriguez Anesthetic: Local Indications for procedure: Elevated PSA 6.6 Procedure: After informed consent was verified, the patient was brought into the procedure area and lay left-hand side down on the table. Patient identity confirmed. Perioperative antibiotics confirmed. Gel was placed per rectum Ultrasound probe was placed per rectum The prostate was measured in 3 dimensions Total volume equals 40 gm There were no cystic structures and no calcifications noted and the prostate was homogeneous in nature A ultrasound-guided pudendal nerve block was performed using 10 cc of 1% lidocaine. 8 cc was placed at the base and 2 cc of the apex. A 12 core biopsy was performed with 6 cores each side. Two cores were taken at the apex, mid and base. Cores were spaced between lateral and medial. He tolerated the procedure well. Was able to ambulate to bathroom after 5 minutes. Printed instructions regarding antibiotic use and common side effects such as low-grade temperature and bleeding were given.
== END 2020-12-07 11:28 | disposition home or self-care (01) ==
LOC: HO.MS 11:27
PROVIDERS: PCP Internal Medicine; Visit Provider Urology
PROC: (CPT 55700; principal; 2020-12-07 12:00)
DX: C61 Malignant neoplasm of prostate (principal); R97.20 Elevated prostate specific antigen [PSA]; I10 Essential (primary) hypertension; E11.9 Type 2 diabetes mellitus without complications; Z79.4 Long term (current) use of insulin; Z79.899 Other long term (current) drug therapy
CPT/HCPCS: 55700; 76942; 88305

== ENCOUNTER → 2020-12-15 12:11 | Outpatient (BNVA) | payer MEDICARE, MEDICAID, SELFPAY | PROVIDERS: PCP Hospitalist; Visit Provider Urology | DX: C61 Malignant neoplasm of prostate (principal); N40.1 Benign prostatic hyperplasia with lower urinary tract symptoms; R35.1 Nocturia | CPT/HCPCS: Q3014 ==

== ENCOUNTER 2020-12-25 07:31 | Outpatient (REF) | payer MEDICARE, MEDICAID, SELFPAY ==
--- NOTE | ~2020-12-25 | XR_ITS ---
EXAMINATION: XR ANKLE, LEFT CLINICAL INFORMATION: Fracture COMPARISON: Previous x-ray October 2020 TECHNIQUE: AP, lateral, and mortise views of the left ankle. FINDINGS: There is a nondisplaced fracture of the distal fibular shaft. There is some increased bony callus formation suggestive of evidence of healing. No other fracture is seen. There is no significant soft tissue swelling, particularly medially. There may be an ankle joint effusion. XR/XR ankle LT min 3V IMPRESSION: Healing left distal fibular shaft fracture. Significant soft tissue swelling, particularly medially and probable ankle joint effusion.
== END 2020-12-25 07:32 | disposition home or self-care (01) ==
LOC: HO.HOSX 07:31
PROVIDERS: Visit Provider Physician Assistant
DX: S82.63XA Displaced fracture of lateral malleolus of unspecified fibula, initial encounter for closed fracture (principal); M25.579 Pain in unspecified ankle and joints of unspecified foot
CPT/HCPCS: 73610; 99202; 99212

== ENCOUNTER 2021-01-18 09:16 | Outpatient (REF) | payer MEDICARE, MEDICAID, SELFPAY ==
[2021-01-18 10:15] LABS: MANUAL DIFF FLAG NO
[2021-01-18 10:18] LABS: Basophils Percent Auto 0.8 % (0-2); Eosinophils Percent Auto 0.8 % (0-4); Hematocrit 38.3 % (42-52); Hemoglobin 13.1 g/dl (14.0-18.0); Imm Gran Abs Auto 0.01 X10*3/uL (0.00-0.03); Imm Gran Pct Auto 0.3 % (0.0-0.4); Lymphocytes Absolute Auto 1.3 X10*3/uL (1.2-4.9); Lymphocytes Percent Auto 34.5 % (20-40); Mean Corpuscular HGB Conc 34.2 g/dl (31.0-36.0); Mean Corpuscular Hemoglobin 29.7 pg (27.0-33.0); Mean Corpuscular Volume 86.8 fL (80-98); Mean Platelet Volume 11.4 fL (9.4-12.4); Monocytes Absolute Auto 0.4 X10*3/uL (0.1-1.2); Monocytes Percent Auto 10.6 % (2-11); Platelet Count 186 X10*3/uL (160-400); Red Blood Count 4.41 X10*6/uL (4.60-5.80); Red Cell Distribution Width 12.9 % (11.0-16.0); White Blood Count 3.8 X10*3/uL (4.8-10.8)
[2021-01-18 10:43] LABS: Alanine Aminotransferase 29 U/L (0-40); Albumin Level 4.3 g/dL (3.5-5.0); Alkaline Phosphatase 47 U/L (39-117); Anion Gap 9 (12-20); Aspartate Amino Transferase 16 U/L (5-37); Bilirubin Total 1.1 mg/dL (0.0-1.0); Blood Urea Nitrogen 10 mg/dL (9-16); Calcium 9.8 mg/dL (8.4-10.2); Carbon Dioxide 33 mmol/L (22-29); Chloride 101 mmol/L (96-108); Estimated Glomerular Filt Rate > 60; Glucose Random 145 mg/dL (60-115); Potassium 3.9 mmol/L (3.3-5.1); Sodium 139 mmol/L (135-145); Total Protein 7.5 g/dL (6.5-8.0)
[2021-01-18 11:08] LABS: Estimated Average Glucose 214 mg/dL; Hemoglobin A1c % 9.1 %
== END 2021-01-18 09:17 | disposition home or self-care (01) ==
LOC: HO.LAB 09:16
PROVIDERS: PCP Internal Medicine; Visit Provider Internal Medicine
DX: E11.9 Type 2 diabetes mellitus without complications (principal); I10 Essential (primary) hypertension; Z86.73 Personal history of transient ischemic attack (TIA), and cerebral infarction without residual deficits
CPT/HCPCS: 36415; 80053; 82043; 83036; 85025

== ENCOUNTER 2021-02-05 07:56 | Outpatient (REF) | payer MEDICARE, MEDICAID, SELFPAY ==
--- NOTE | ~2021-02-05 | XR_ITS ---
EXAMINATION: XR ANKLE, LEFT CLINICAL INFORMATION: Displaced fracture of lateral malleolus. COMPARISON: None TECHNIQUE: AP, lateral, and mortise views of the left ankle. FINDINGS: There is moderate bimalleolar soft tissue swelling with and oblique minimally displaced fracture of distal fibula. The ankle mortise and subtalar joints are normal. There is a small calcaneal heel and retrocalcaneal enthesophytes. Soft tissues are normal XR/XR ankle LT min 3V IMPRESSION: No significant change in oblique distal fibular fracture with minimal displaced fracture compared to previous study 12/25/2020. The ankle mortise and subtalar joints are normal. There is a small calcaneal heel and retrocalcaneal enthesophyte.
== END 2021-02-05 07:57 | disposition home or self-care (01) ==
LOC: HO.HOSX 07:56
PROVIDERS: Visit Provider Physician Assistant
DX: S82.62XD Displaced fracture of lateral malleolus of left fibula, subsequent encounter for closed fracture with routine healing (principal)
CPT/HCPCS: 73610; 99212

== ENCOUNTER 2021-02-09 11:00 | Outpatient (RCR) | payer MEDICARE, MEDICAID, SELFPAY ==
--- NOTE | 2021-01-05 14:22 | MHC.PT.EP ---
[facility] [place] Office [place] Office [place] Office [address] Aleks Mathias [address] [phone] F: [phone] F: [phone] F: [phone] F: [phone] Physical Therapy Plan of Care Date of Evaluation: Date of Surgery: Diagnosis: LATERAL MALLEOLAR FX L ANKLE Assessment: Pt IS 55 YO M REFERRED TO PT FROM ORTHO S/P L LAT MALLEOLUS FX (LAST XRAY SHOWING HEALING/CALLUS FORMATION). Pt REPORTS PAIN L ANKLE (CORINNE AT NIGHT WHEN HAS RESTING TREMOR S/P STROKE FROM 2007). Pt PRESENTS WITH SIGNIF SWELLING L LE AND SIGNIFICANTLY LIMITED L ANKLE ROM/STRENGTH. Pt WITH INCREASED TONE L SIDE OF BODY. Pt SHOULD BENEFIT FROM PT TO HELP WITH PAIN AND INFLAMMATION (OT FOR LYMPHEDEMA TREATMENT...SPOKE WITH THOMSA FROM OT) AND POSSIBLE USE OF AFO. WILL WORK ON GENTLE STRENGTHENING AND ROM TO HELP WITH FUNCTIONAL MOBILITY AND HELP DECREASE PAIN Frequency and Duration: The patient will be seen 2X/WK X 4 WKS Short Term Goals: 1. I HEP WITH DC EX PLAN 2. Pt TO WEAR AFO WITH GOOD RESULTS Retirement Goals: 1. DECREASED EDEMA NOTED L LE WITH USE COMPRESSION GARMENT 2. DECREASED L ANKLE PAIN (corinne AT NIGHT) AT LEAST 50% Treatment Plan: Modalities to reduce pain, spasms and effusion. Manual therapy to restore motion and function. Therapeutic exercise to improve strength and flexibility. Neuromuscular re-education for posture and balance. Therapeutic activities to return to functional activities of daily living. Electronically signed by: WENDIE WHATLEY PT Please sign and return to therapist. Thank you for your referral.
--- NOTE | 2021-07-04 14:47 | MHC.PT.DC ---
[facility] [place] Office [place] Office [place] Office [address] Aleks Mathias [address] [phone] F: [phone] F: [phone] F: [phone] F: [phone] Physical Therapy Discharge Report Diagnosis: LATERAL MALLEOLAR FX L ANKLE Date of Surgery: Date of Evaluation: 01/05/21 Date of Discharge: 07/04/21 Treatments to Date: 6 Cancellations to Date: 0 No Shows to Date: 2 Discharge Status: Recommend MD Follow-up Discharge Summary: PER ASSESSMENT FROM LAST PT NOTE PER [employer]ENT ON 02/09/21:' All ex to diya. Minimal ROM due to LE edema. Pt to begin OT for edema.' THEN NO FURTHER PT APPTS SCHEDULED (?) Electronically signed by: WENDIE WHATLEY PT Please sign and return to therapist. Thank you for your referral.
== END 2021-07-04 14:47 | disposition home or self-care (01) ==
LOC: HO.PT 11:00
PROVIDERS: PCP Internal Medicine; Visit Provider Physician Assistant
DX: S82.63XD Displaced fracture of lateral malleolus of unspecified fibula, subsequent encounter for closed fracture with routine healing (principal)
CPT/HCPCS: 97110; 97162

== ENCOUNTER 2021-03-30 14:00 | Outpatient (RCR) | payer MEDICARE, MEDICAID, SELFPAY ==
--- NOTE | 2021-05-01 08:40 | MHC.OT.DC ---
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 May benefit from swell pads. Pt no showed follow up appt and has not rescheduled Pt will need to replace his compression wrap in 6 -12 mo. Recommend foot and calf wrap and possible swell pads for ankle Electronically Signed By: Cece Fischer OT CHT CLT Reviewed/agree with student documentation: N/A Therapist: Please Sign and return to therapist, thank you for your referral.
== END 2022-01-01 10:07 | disposition home or self-care (01) ==
LOC: HO.OT 14:00
PROVIDERS: PCP Internal Medicine; Visit Provider Internal Medicine
DX: G81.94 Hemiplegia, unspecified affecting left nondominant side (principal); I89.0 Lymphedema, not elsewhere classified
CPT/HCPCS: 97110; 97140; 97166

== ENCOUNTER 2021-04-24 09:33 | Outpatient (REF) | payer MEDICARE, MEDICAID, SELFPAY ==
[2021-04-24 10:56] LABS: PSA,Total (Free>4and<10) 3.12 ng/mL (0.00-4.00)
== END 2021-04-24 09:34 | disposition home or self-care (01) ==
LOC: HO.10HDL 09:33
PROVIDERS: PCP Internal Medicine; Visit Provider Urology
DX: N40.1 Benign prostatic hyperplasia with lower urinary tract symptoms (principal); N13.8 Other obstructive and reflux uropathy
CPT/HCPCS: 36415; 84153

== ENCOUNTER → 2021-05-01 11:43 | Outpatient (BNVA) | payer MEDICARE, MEDICAID, SELFPAY | PROVIDERS: PCP Internal Medicine; Visit Provider Urology | DX: Z13.89 Encounter for screening for other disorder (principal) | CPT/HCPCS: Q3014 ==

== ENCOUNTER 2021-07-09 08:57 | Outpatient (REF) | payer MEDICARE, MEDICAID, SELFPAY ==
[2021-07-09 10:40] LABS: Alanine Aminotransferase 25 U/L (0-40); Albumin Level 4.3 g/dL (3.5-5.0); Alkaline Phosphatase 44 U/L (39-117); Anion Gap 11 (12-20); Aspartate Amino Transferase 17 U/L (5-37); Bilirubin Total 0.9 mg/dL (0.0-1.0); Blood Urea Nitrogen 10 mg/dL (9-16); Carbon Dioxide 31 mmol/L (22-29); Chloride 103 mmol/L (96-108); Cholesterol 150 mg/dL; Estimated Glomerular Filt Rate > 60; Glucose Fasting 60 mg/dL (60-99); HDL Cholesterol 36 mg/dL; LDL Cholesterol Calculated 98 mg/dl; Potassium 3.6 mmol/L (3.3-5.1); Sodium 141 mmol/L (135-145); Total Protein 7.6 g/dL (6.5-8.0); Triglycerides 82 mg/dL
[2021-07-09 10:56] LABS: Creatinine Urine 140.76 mg/dL; Microalbum/Creatinine Ratio Ur 264.2 ug/mg cr
[2021-07-12 14:26] LABS: Vitamin D 25-OH, D2 <4 ng/mL; Vitamin D 25-OH, D3 21 ng/mL; Vitamin D 25-OH, Total 21 ng/mL (30-100)
== END 2021-07-09 08:58 | disposition home or self-care (01) ==
LOC: HO.10HDL 08:57
PROVIDERS: Visit Provider Internal Medicine
DX: E55.9 Vitamin D deficiency, unspecified (principal); E11.9 Type 2 diabetes mellitus without complications; E78.5 Hyperlipidemia, unspecified
CPT/HCPCS: 36415; 80053; 80061; 82043; 82306

== ENCOUNTER 2021-10-04 10:13 | Outpatient (REF) | payer MEDICARE, MEDICAID, SELFPAY ==
[2021-10-04 14:37] LABS: PSA,Total (Free>4and<10) 2.25 ng/mL (0.00-4.00)
== END 2021-10-04 10:14 | disposition home or self-care (01) ==
LOC: HO.10HDL 10:13
PROVIDERS: Visit Provider Urology
DX: C61 Malignant neoplasm of prostate (principal); Z12.5 Encounter for screening for malignant neoplasm of prostate
CPT/HCPCS: 36415; 84153

== ENCOUNTER → 2021-10-10 13:25 | Outpatient (BNVA) | payer MEDICARE, MEDICAID, SELFPAY | PROVIDERS: PCP Internal Medicine; Visit Provider Urology | DX: N40.1 Benign prostatic hyperplasia with lower urinary tract symptoms (principal); R35.1 Nocturia | CPT/HCPCS: 99212 ==

== ENCOUNTER → 2021-10-11 10:42 | Outpatient (BNVA) | payer MEDICARE, MEDICAID, SELFPAY | PROVIDERS: PCP Internal Medicine; Referring Provider Internal Medicine; Visit Provider Internal Medicine Gastroenterology | DX: K59.09 Other constipation (principal); Z80.0 Family history of malignant neoplasm of digestive organs | CPT/HCPCS: 99202 ==

== ENCOUNTER 2021-10-23 10:11 | Day surgery (SDC) | payer MEDICARE, MEDICAID, SELFPAY ==
--- NOTE | 2021-10-19 11:30 | P.CONAN_ITS ---
Documented by User: Bella Rdz NP 10/19/21 11:32 HPI - Anesthesia Eval Consult details Narrative: 56yo M for Colonoscopy L side weakness d/t stroke 2008 [facility] Active Problems Active Problems: All Active Problems (Updated 10/12/21 @ 11:04 by Christin Adkins MD) Family history of colon cancer (Acute) Colon cancer screening (Acute) Chronic constipation (Acute) Microalbuminuria (Acute) Bicytopenia (Acute) Colon polyps (Acute) Migraines (Acute) Dyslipidemia (Acute) Fracture of left ankle, lateral malleolus (Acute) Lateral malleolar fracture (Acute) Ankle pain (Acute) Prostate cancer (Acute) Nocturia associated with benign prostatic hyperplasia (Acute) Closed high lateral malleolus fracture (Acute) Ankle pain (Acute) Elevated PSA (Acute) Depression (Acute) Diabetes (Acute) HTN (hypertension) (Acute) Stroke (Acute) COVID-19 (Acute) Past Medical History Medical History Abdominal hernia Altered bowel function Bicytopenia BPH w/o urinary obs/LUTS Colon polyps Depression Diabetes Dyslipidemia Elevated PSA HTN (hypertension) Microalbuminuria Migraines Stroke Stroke Family History Family History Mother No problems noted. Father Enlarged prostate Surgical History Surgical History H/O umbilical hernia repair History of colonoscopy Social History Social History Housing: Apartment Alcohol intake: former Patient Tobacco Use Status: Never used Tobacco e-Cigarette/Vaping Use: Never Used Second Hand Smoke Exposure: No Are you DNR?: No Advance Directives: No Advance Directives Information Provided: No Recently lost weight without trying: No service: No Current occupational status: disabled Current occupational exposures/hazards: No Meds Allergies Allergy/AdvReac Type Severity Reaction Status Date / Time No Known Allergies Allergy Verified 10/11/21 10:44 [No Known Allergies*] Home Medications Medication Instructions Recorded Confirmed Last Taken Type pen needle, diabetic 31 gauge x #50 ea 09/12/20 10/12/21 Unknown History 11/14 latanoprost 0.005 % eye drops 1 drp OPHTHALMIC (EYE) DAILY 11/28/20 10/12/21 Unknown History Exam Exam Date and Time: October 19, 2021 1130 Pertinent Lab Results Pertinent Lab Results: Laboratory Tests 07/09/21 07/13/21 09:00 10:36 WBC 4.3 L Hgb 13.3 L Hct 38.2 L Plt Count 211 Sodium 141 Potassium 3.6 Chloride 103 Carbon Dioxide 31 H BUN 10 Creatinine 0.86 Narrative Narrative: EKG 08/2020 Vent. Rate : 072 BPM ? ? Atrial Rate : 072 BPM ?? P-R Int : 140 ms? QRS Dur : 082 ms ? ? QT Int : 344 ms ? ? ? P-R-T Axes : 039 012 061 degrees ?? QTc Int : 376 ms ? Normal sinus rhythm Nonspecific T wave abnormality Abnormal ECG When compared with ECG of 19-SEP-2016 12:45, QT has shortened Assessment and Plan Assessment Anesthesia Assessment: Chart Reviewed Documented by User: oJse Ceballos MD 10/23/21 14:25 PMFSH Past Medical History Medical History Abdominal hernia Altered bowel function Bicytopenia BPH w/o urinary obs/LUTS Colon polyps Depression Diabetes Dyslipidemia Elevated PSA HTN (hypertension) Microalbuminuria Migraines Stroke Stroke Family History Family History Mother No problems noted. Father Enlarged prostate Family history of problems with anesthesia: No Surgical History Surgical History H/O umbilical hernia repair History of colonoscopy History of Problems with Anesthesia: No Social History Social History Housing: Apartment Alcohol intake: former Patient Tobacco Use Status: Never used Tobacco e-Cigarette/Vaping Use: Never Used Second Hand Smoke Exposure: No Are you DNR?: No Advance Directives: No Advance Directives Information Provided: No Recently lost weight without trying: No service: No Current occupational status: disabled Current occupational exposures/hazards: No Meds Allergies Allergy/AdvReac Type Severity Reaction Status Date / Time No Known Allergies Allergy Verified 10/11/21 10:44 [No Known Allergies*] Home Medications Medication Instructions Recorded Confirmed Last Taken Type pen needle, diabetic 31 gauge x #50 ea 09/12/20 10/12/21 Unknown History 11/14 latanoprost 0.005 % eye drops 1 drp OPHTHALMIC (EYE) DAILY 11/28/20 10/12/21 Unknown History Exam Airway Mallampati Class: II TM Dist: >3cm Neck ROM: Full Denture: Upper and Lower Assessment and Plan Assessment Anesthesia Assessment: Anesthesia Plan Discussed Final Anesthetic Review Family History of Problems with Anesthesia: No History of Problems with Anesthesia: No NPO: Yes ASA Class: III Final Preanesthetic Review: No Changes in Pt Med Stat, Meds/Allgs Chart Reviewed, Consent Obtained/Reviewed and Anes Risks/Benef Reviewed Patient Risk: Intermediate Procedure Risk: Low Anesthetic Plan Anesthetic Plan: MAC: Disposition: Standard PACU
[2021-10-23 10:41] VITALS: BP 148/93; PULSE 64; RESP 18; TEMP 36.6; O2SAT 98
[2021-10-23 10:53] LABS: Glucose, Whole Blood 89 mg/dL (60-115)
[2021-10-23 10:59] VITALS: BMI 32.5
[2021-10-23] MEDS: Lactated Ringers 1,000 ML 100 ML IVCONT (11:07)
--- NOTE | 2021-10-23 12:54 | MHC.SHP ---
Pre-Procedural Eval Section A Date of Service: 10/23/21 The patient is an INPATIENT: No Changes since office visit: Yes Patient answered all questions; No Cold of Flu in the past 2 weeks, No New Medical Problems and No Changes in Medication The History & Physical has been completed within 30 days and I have reviewed it.: Yes Section B Chief Complaint: constipation,hx of malignant neoplasm Allergies: Allergies Allergy/AdvReac Type Severity Reaction Status Date / Time No Known Allergies Allergy Verified 10/11/21 10:44 [No Known Allergies*] Plan I have reviewed the history and physical and performed a pertinent physical examination on my patient. No changes have occurred unless specified.
--- NOTE | 2021-10-23 12:55 | P.OP_ITS ---
Operative Note Operative Note Date of Service: 10/23/21 Narrative: Pre-op diagnosis: Colon cancer screen Post-op diagnosis:?other (Colon polyp diverticulosis, hemorrhoids) Procedure: COLONOSCOPY TILL CECUM WITH BIOPSIES Consent: Indications for the procedure and potential complications of bleeding, perforation, reaction to medications and missed diagnosis were discussed with the patient and informed consent was obtained. Instrument: Olympus PCF H 190 L variable stiffness pediatric colonoscope Monitoring: Vital signs and clinical assessment, intermittent blood pressure monitoring, continuous EKG monitoring, Pulse oximetry and Carbon Dioxide monitoring were done throughout the procedure. Colon withdrawl time was 25 minutes. Procedure: The patient was placed in the left lateral decubitis position and pre-procedure medications were administered. After a digital rectal examination of the ano-rectum, the video colonoscope was inserted into the rectum and advanced through the colon to the cecum. The colonoscope was slowly withdrawn in a retrograde panoramic fashion and the colon mucosa was carefully examined including a retroflexed view of the rectum. Findings and interventions are described below. Procedure Difficulty:? LLQ pressure applied to intubate the cecum Findings: Terminal Ileum: Not evaluated Cecum:? Normal Ascending Colon:? Normal Transverse Colon:? Normal Descending Colon:? Normal Sigmoid Colon:? A 7-8 mm diminutive appearing polyp in the distal sigmoid colon - biopsied.? Moderate diverticulosis Rectum:? Normal Ano-rectum:? Moderate internal hemorrhoids Colon preparation:? Good to Fair despite copious irrigation Impression and Post Procedure Diagnosis: Colonoscopy Findings: One diminutive appearing polyp was biopsied Moderate diverticulosis seen in the sigmoid colon Moderate hemorrhoids on antegrade exam. Plan: I will send a letter with pathology results Patient has an appointment on 01/31/22 in the GI Clinic with Lance Horan M.D.. Repeat Colonoscopy interval based on path results - in 5 years if polyps are ad enomatous and due to fair prep. Above findings were reviewed with the patient and colon polyps and diverticulosis handouts were given in the discharge area Surgeon: Lance Horan MD Anesthesia:?MAC (Dr Ceballos) Was an Data Processing Consultant used for this Procedure?:?Yes Data Processing Consultant:?Tamara Garcia Estimated blood loss (mL):?0 Pathology:?other (A- Sigmoid colon polyp) Condition:?stable Disposition:?PACU
[2021-10-23 15:11] VITALS: BP 109/59; PULSE 58; RESP 20; TEMP 36; O2SAT 99
== END 2021-10-23 15:57 | disposition home or self-care (01) ==
PROVIDERS: PCP Internal Medicine; Visit Provider Internal Medicine Gastroenterology
PROC: 0DJD8ZZ Inspection of Lower Intestinal Tract, Via Natural or Artificial Opening Endoscopic (ICD-10-PCS; CPT 45378; principal; 2021-10-23 12:30)
DX: Z12.11 Encounter for screening for malignant neoplasm of colon (principal); Z80.0 Family history of malignant neoplasm of digestive organs; K63.5 Polyp of colon; K57.30 Diverticulosis of large intestine without perforation or abscess without bleeding; K64.8 Other hemorrhoids; K59.09 Other constipation; K21.9 Gastro-esophageal reflux disease without esophagitis; I10 Essential (primary) hypertension; E11.9 Type 2 diabetes mellitus without complications; E78.5 Hyperlipidemia, unspecified; R97.20 Elevated prostate specific antigen [PSA]; I69.398 Other sequelae of cerebral infarction; I69.354 Hemiplegia and hemiparesis following cerebral infarction affecting left non-dominant side; Z79.4 Long term (current) use of insulin; Z79.899 Other long term (current) drug therapy
CPT/HCPCS: 45380; 82947; 88305

== ENCOUNTER 2021-11-05 09:25 | Outpatient (REF) | payer MEDICARE, MEDICAID, SELFPAY ==
[2021-11-05 10:22] LABS: MANUAL DIFF FLAG NO
[2021-11-05 10:55] LABS: Basophils Percent Auto 0.7 % (0-2); Eosinophils Absolute Auto 0.1 X10*3/uL (0.0-0.4); Eosinophils Percent Auto 2.4 % (0-4); Hematocrit 38.1 % (42.0-52.0); Imm Gran Abs Auto 0.01 X10*3/uL (0.00-0.03); Imm Gran Pct Auto 0.2 % (0.0-0.4); Lymphocytes Absolute Auto 1.6 X10*3/uL (1.2-4.9); Lymphocytes Percent Auto 36.7 % (20-40); Mean Corpuscular HGB Conc 34.1 g/dl (31.0-36.0); Mean Corpuscular Hemoglobin 29.7 pg (27.0-33.0); Mean Platelet Volume 11.2 fL (9.4-12.4); Monocytes Absolute Auto 0.4 X10*3/uL (0.1-1.2); Monocytes Percent Auto 9.9 % (2-11); Neutrophils Absolute Auto 2.1 x10*3/uL (2.0-8.3); Neutrophils Percent Auto 50.1 % (45-73); Platelet Count 188 X10*3/uL (160-400); Red Blood Count 4.38 X10*6/uL (4.60-5.80); Red Cell Distribution Width 12.7 % (11.0-16.0); White Blood Count 4.3 X10*3/uL (4.8-10.8)
[2021-11-05 10:59] LABS: Creatinine Urine 164.07 mg/dL
[2021-11-05 11:23] LABS: Alanine Aminotransferase 20 U/L (0-40); Albumin Level 4.1 g/dL (3.5-5.0); Alkaline Phosphatase 41 U/L (39-117); Anion Gap 10 (12-20); Aspartate Amino Transferase 16 U/L (5-37); Bilirubin Total 0.8 mg/dL (0.0-1.0); Blood Urea Nitrogen 11 mg/dL (9-16); Calcium 9.3 mg/dL (8.4-10.2); Carbon Dioxide 32 mmol/L (22-29); Chloride 103 mmol/L (96-108); Cholesterol 147 mg/dL; Estimated Glomerular Filt Rate > 60; Glucose Fasting 71 mg/dL (60-99); HDL Cholesterol 39 mg/dL; Iron 69 mcg/dL (45-160); LDL Cholesterol Calculated 94 mg/dl; Percent Iron Saturation 22 % (15-50); Potassium 3.5 mmol/L (3.3-5.1); Sodium 141 mmol/L (135-145); Total Iron Binding Capacity 315 mcg/dL (228-428); Total Protein 7.4 g/dL (6.5-8.0); Triglycerides 71 mg/dL; Unsaturated Iron Binding 246 ug/dL
== END 2021-11-05 09:26 | disposition home or self-care (01) ==
LOC: HO.10HDL 09:25
PROVIDERS: Visit Provider Internal Medicine
DX: E78.5 Hyperlipidemia, unspecified (principal); E11.65 Type 2 diabetes mellitus with hyperglycemia; D64.9 Anemia, unspecified; D75.89 Other specified diseases of blood and blood-forming organs; Z79.4 Long term (current) use of insulin
CPT/HCPCS: 36415; 80053; 80061; 82043; 83540; 85025

== ENCOUNTER 2021-11-12 06:05 | Day surgery (SDC) | payer MEDICARE, MEDICAID, SELFPAY ==
--- NOTE | 2021-11-09 10:41 | P.CONAN_ITS ---
Documented by User: Bella Rdz NP 11/09/21 10:44 HPI - Anesthesia Eval Consult details Narrative: 56yo M for Laser Ablation Prostate w/Green Light s/p colo 10/23/21 with TIVA L side weakness d/t stroke 2008 [facility] Active Problems Active Problems: All Active Problems (Updated 10/12/21 @ 11:04 by Christin Adkins MD) Family history of colon cancer (Acute) Colon cancer screening (Acute) Chronic constipation (Acute) Microalbuminuria (Acute) Bicytopenia (Acute) Colon polyps (Acute) Migraines (Acute) Dyslipidemia (Acute) Fracture of left ankle, lateral malleolus (Acute) Lateral malleolar fracture (Acute) Ankle pain (Acute) Prostate cancer (Acute) Nocturia associated with benign prostatic hyperplasia (Acute) Closed high lateral malleolus fracture (Acute) Ankle pain (Acute) Elevated PSA (Acute) Depression (Acute) Diabetes (Acute) HTN (hypertension) (Acute) Stroke (Acute) COVID-19 (Acute) Past Medical History Medical History Abdominal hernia Altered bowel function Bicytopenia BPH w/o urinary obs/LUTS Colon polyps Depression Diabetes Dyslipidemia Elevated PSA HTN (hypertension) Microalbuminuria Migraines Stroke Stroke Family History Family History Mother No problems noted. Father Enlarged prostate Family history of problems with anesthesia: No Surgical History Surgical History H/O umbilical hernia repair History of colonoscopy History of Problems with Anesthesia: No Social History Social History Housing: Apartment Alcohol intake: former Patient Tobacco Use Status: Never used Tobacco e-Cigarette/Vaping Use: Never Used Second Hand Smoke Exposure: No Use of substances other than those prescribed or required for medical reasons: No Are you DNR?: No Advance Directives: No Advance Directives Information Provided: Yes Advance Directives on File: No service: No Current occupational status: disabled Current occupational exposures/hazards: No Meds Allergies Allergy/AdvReac Type Severity Reaction Status Date / Time No Known Allergies Allergy Verified 10/11/21 10:44 [No Known Allergies*] Home Medications Medication Instructions Recorded Confirmed Last Taken Type pen needle, diabetic 31 gauge x #50 ea 09/12/20 10/12/21 Unknown History 11/14 latanoprost 0.005 % eye drops 1 drp OPHTHALMIC (EYE) DAILY 11/28/20 10/12/21 Unknown History Exam Exam Date and Time: November 09, 2021 1041 Pertinent Lab Results Pertinent Lab Results: Laboratory Tests 11/05/21 11/05/21 09:30 09:30 WBC 4.3 L Hgb 13.0 L Hct 38.1 L Plt Count 188 Sodium 141 Potassium 3.5 Chloride 103 Carbon Dioxide 32 H BUN 11 Creatinine 0.87 Narrative Narrative: EKG 08/2020 Vent. Rate : 072 BPM ? ? Atrial Rate : 072 BPM ?? P-R Int : 140 ms? QRS Dur : 082 ms ? ? QT Int : 344 ms ? ? ? P-R-T Axes : 039 012 061 degrees ?? QTc Int : 376 ms ? Normal sinus rhythm Nonspecific T wave abnormality Abnormal ECG When compared with ECG of 19-SEP-2016 12:45, QT has shortened Assessment and Plan Assessment Anesthesia Assessment: Chart Reviewed Final Anesthetic Review Family History of Problems with Anesthesia: No History of Problems with Anesthesia: No Documented by User: Jazmyn Sears MD 11/12/21 07:31 [facility] Past Medical History Medical History Abdominal hernia Altered bowel function Bicytopenia BPH w/o urinary obs/LUTS Colon polyps Depression Diabetes Dyslipidemia Elevated PSA HTN (hypertension) Microalbuminuria Migraines Stroke Stroke Family History Family History Mother No problems noted. Father Enlarged prostate Surgical History Surgical History H/O umbilical hernia repair History of colonoscopy Social History Social History Housing: Apartment Alcohol intake: former Patient Tobacco Use Status: Never used Tobacco e-Cigarette/Vaping Use: Never Used Second Hand Smoke Exposure: No Use of substances other than those prescribed or required for medical reasons: No Are you DNR?: No Advance Directives: No Advance Directives Information Provided: Yes Advance Directives on File: No service: No Current occupational status: disabled Current occupational exposures/hazards: No Meds Allergies Allergy/AdvReac Type Severity Reaction Status Date / Time No Known Allergies Allergy Verified 10/11/21 10:44 [No Known Allergies*] Home Medications Medication Instructions Recorded Confirmed Last Taken Type pen needle, diabetic 31 gauge x #50 ea 09/12/20 10/12/21 Unknown History 11/14 latanoprost 0.005 % eye drops 1 drp OPHTHALMIC (EYE) DAILY 11/28/20 10/12/21 Unknown History Exam Airway Mallampati Class: III TM Dist: >3cm Neck ROM: Full Partial: Upper and Lower Loose/Missing/Broken Teeth: Yes, Upper and Lower Assessment and Plan Assessment Anesthesia Assessment: Anesthesia Plan Discussed Final Anesthetic Review NPO: Yes ASA Class: III Final Preanesthetic Review: No Changes in Pt Med Stat, Meds/Allgs Chart Reviewed, Consent Obtained/Reviewed and Anes Risks/Benef Reviewed Patient Risk: Intermediate Procedure Risk: Low Anesthetic Plan Anesthetic Plan: GA Disposition: Standard PACU
[2021-11-12] VITALS (11 sets, daily range): BP systolic 123–156; BP diastolic 60–82; PULSE 60–66; RESP 16; TEMP 36.1–36.5; O2SAT 88–100; BMI 35.6
[2021-11-12] MEDS: Dextrose 5 % 250 ML IV (06:32)
[2021-11-12 06:35] LABS: Glucose, Whole Blood 58 mg/dL (60-115)
[2021-11-12] MEDS: Lactated Ringers 1,000 ML 100 ML IVCONT (06:43)
--- NOTE | 2021-11-12 06:57 | PC.NURSE ---
Addendum entered by David Peacock RN 11/12/21 08:36: POC 100. Dr. Sears notified. order received for second bag of 250mL D5W to infuse. Original Note: pt POC 58 at 0632. with use of lang interpreter pt denies dizziness, lightheadedness or blurred vision, pt states i feel fine . Dr. Page notified and orders received for 250mL D5% KVO started. Will recheck POC after D5% infused.
[2021-11-12 07:23] LABS: Glucose, Whole Blood 100 mg/dL (60-115)
--- NOTE | 2021-11-12 07:37 | MHC.SHP ---
Pre-Procedural Eval Section A Date of Service: 11/12/21 The patient is an INPATIENT: No Changes since office visit: No Cold of Flu in the past 2 weeks, No New Medical Problems, No Changes in Medication and No Patient answered all questions The History & Physical has been completed within 30 days and I have reviewed it.: Yes Section B Chief Complaint: Benign Prostatic Hyperplasia Details of Present Illness: Laser enucleation Relevant Social History: None Present Medications: see Short Stay Collaborative assessment Medical History: No relevant PMH History of Previous Operations: No relevant previous surgery Allergies: Allergies Allergy/AdvReac Type Severity Reaction Status Date / Time No Known Allergies Allergy Verified 10/11/21 10:44 [No Known Allergies*] Review of Systems Sugical H&P ROS: Negative: Constitution, Cardiovascular, Respiratory, Neurological, Psychiatric, Hem-Onc, Allergic/Immunologic, Gastrointestinal, Genitourinary, Musculoskeletal, Integumentary, Endocrine and Eyes/Ears/Nose/Throat Exam Surgical H&P Exam: Normal: HEENT, Normal: Heart, Normal: Lungs, Normal: Extremities, Normal: Abdomen, Normal: Skin and Normal: Neurological Plan Diagnosis/Plan: Unchanged (Laser enucelation) I have reviewed the history and physical and performed a pertinent physical examination on my patient. No changes have occurred unless specified.
--- NOTE | 2021-11-12 08:49 | P.OP_ITS ---
Operative Note Operative Note Date of Service: 11/12/21 Narrative: PreOperative Diagnosis: Bladder outlet obstruction Post Operative Diagnosis: Bladder outlet obstruction Procedure: GreenLight Laser Enucleation of the prostate Surgeon: Dr Khurram Rodriguez Anesthesia: General Indications for procedure: 56-year-old male. Tight bladder neck History of bladder outlet obstruction. Treated with alpha-aravind and other medications. Still with symptoms. On cystoscopy in office has tight bladder neck. Recommendation for prostate procedure with laser enucleation of prostate. It has been discussed. Focus was placed on development of retrograde examination which is a normal part of this procedure. Procedure: After informed consent was verified the patient was brought to the operating room and placed in a supine position. Anesthesia was administered per protocol. Patient was placed in modified dorsal lithotomy position and prepped and draped in a sterile fashion. Safety pause time-out was confirmed. Antibiotics have been given. Twenty-four Mongolian laser cystoscope was inserted per urethra. No abnormalities found the anterior posterior urethra. The bladder was filled on both ureteric orifices were seen in normal position away from our area of interest. Using a GreenLight laser settings of 80 w incisions were made at the 5 and 7 o'clock position. They were taken down and then laterally on each side. They were brought from the bladder neck down to the level of the veru. These defined the lateral aspects of the median lobe area. The median lobe was ablated and enucleated tissue removed. Once the median lobe area had been cleaned attention was directed to the lateral lobes. We started with the patient's left lateral lobe. Firstly the 05:00 o'clock groove was further developed. This was moved in the lateral position to undermine the tissue on the lateral side. Focus was then placed on the laser at the 1 o'clock position in developing a secondary groove down to the level of bladder fibers. The intervening tissue between these 2 grooves was removed with a combination of enucleation ablation working from the apex toward the bladder neck. A similar procedure was repeated on the patient's right-hand side. When this was completed debris and pieces of prostate removed from the bladder. Both ureteric orifices were reviewed again in shown to be patent in away from any areas of energy damage. The apical area was reviewed in any stray ooze was controlled. A 22 Mongolian 30 cc balloon Sharma catheter was placed over stylet into the bladder. Clear efflux was obtained. 30 cc was placed in the balloon and gentle traction was placed. A snap was used to hold tension once the patient will be moved and transported. Once transportation its finish this novel be removed. A belladonna and opiate suppository was placed for postprocedure pain césar jazmin. He tolerated procedure well was extubated in the operating and transferred in a stable condition to the recovery area. Total Power 120 kW Lase time 18.07 Pathology: Prostate tissue Drains: Sharma catheter
[2021-11-12 09:12] LABS: Glucose, Whole Blood 76 mg/dL (60-115)
[2021-11-12 10:34] LABS: Glucose, Whole Blood 130 mg/dL (60-115)
== END 2021-11-12 11:43 | disposition home or self-care (01) ==
PROVIDERS: PCP Internal Medicine; Visit Provider Urology
PROC: (CPT 52648; principal; 2021-11-12 07:30)
DX: N40.1 Benign prostatic hyperplasia with lower urinary tract symptoms (principal); N13.8 Other obstructive and reflux uropathy; R35.1 Nocturia; C61 Malignant neoplasm of prostate; I69.354 Hemiplegia and hemiparesis following cerebral infarction affecting left non-dominant side; F32.9 Major depressive disorder, single episode, unspecified; I10 Essential (primary) hypertension; E78.5 Hyperlipidemia, unspecified; D75.9 Disease of blood and blood-forming organs, unspecified; E11.9 Type 2 diabetes mellitus without complications; Z79.4 Long term (current) use of insulin
CPT/HCPCS: 52649; 82947; 88305; J1100; J1956; J2250; J2405; J3010; Q9967

== ENCOUNTER → 2021-11-15 08:54 | Outpatient (BNVA) | payer MEDICARE, MEDICAID, SELFPAY | PROVIDERS: PCP Internal Medicine; Visit Provider Urology | DX: C61 Malignant neoplasm of prostate (principal) | CPT/HCPCS: 51700; 51798 ==

== ENCOUNTER → 2021-12-26 09:25 | Outpatient (BNVA) | payer MEDICARE, MEDICAID, SELFPAY | PROVIDERS: PCP Internal Medicine; Visit Provider Urology | DX: Z48.816 Encounter for surgical aftercare following surgery on the genitourinary system (principal) | CPT/HCPCS: 99212 ==

== ENCOUNTER 2022-03-18 08:47 | Outpatient (REF) | payer OTHER, MEDICAID, SELFPAY ==
[2022-03-18 11:02] LABS: MANUAL DIFF FLAG NO
[2022-03-18 11:06] LABS: Basophils Percent Auto 0.7 % (0-2); Eosinophils Absolute Auto 0.1 X10*3/uL (0.0-0.4); Eosinophils Percent Auto 1.9 % (0-4); Hematocrit 38.2 % (42.0-52.0); Hemoglobin 13.2 g/dl (14.0-18.0); Imm Gran Abs Auto 0.01 X10*3/uL (0.00-0.03); Imm Gran Pct Auto 0.2 % (0.0-0.4); Lymphocytes Absolute Auto 1.6 X10*3/uL (1.2-4.9); Lymphocytes Percent Auto 39.9 % (20-40); Mean Corpuscular HGB Conc 34.6 g/dl (31.0-36.0); Mean Corpuscular Hemoglobin 29.9 pg (27.0-33.0); Mean Corpuscular Volume 86.6 fL (80.0-98.0); Mean Platelet Volume 11.2 fL (9.4-12.4); Monocytes Absolute Auto 0.4 X10*3/uL (0.1-1.2); Monocytes Percent Auto 9.7 % (2-11); Neutrophils Percent Auto 47.6 % (45-73); Platelet Count 190 X10*3/uL (160-400); Red Blood Count 4.41 X10*6/uL (4.60-5.80); Red Cell Distribution Width 12.3 % (11.0-16.0); White Blood Count 4.1 X10*3/uL (4.8-10.8)
[2022-03-18 11:16] LABS: Alanine Aminotransferase 18 U/L (0-40); Albumin Level 4.3 g/dL (3.5-5.0); Alkaline Phosphatase 40 U/L (39-117); Anion Gap 10 (12-20); Aspartate Amino Transferase 14 U/L (5-37); Bilirubin Total 0.6 mg/dL (0.0-1.0); Blood Urea Nitrogen 11 mg/dL (9-16); Calcium 9.1 mg/dL (8.4-10.2); Carbon Dioxide 32 mmol/L (22-29); Chloride 101 mmol/L (96-108); Cholesterol 144 mg/dL; Estimated Glomerular Filt Rate > 60; Glucose Fasting 65 mg/dL (60-99); HDL Cholesterol 40 mg/dL; LDL Cholesterol Calculated 92 mg/dl; Potassium 3.5 mmol/L (3.3-5.1); Sodium 139 mmol/L (135-145); Total Protein 7.5 g/dL (6.5-8.0); Triglycerides 64 mg/dL
[2022-03-18 11:48] LABS: Creatinine Urine 131.72 mg/dL; Microalbum/Creatinine Ratio Ur 149.5 ug/mg cr
== END 2022-03-18 08:48 | disposition home or self-care (01) ==
LOC: HO.10HDL 08:47
PROVIDERS: Visit Provider Internal Medicine
DX: E78.5 Hyperlipidemia, unspecified (principal); D64.9 Anemia, unspecified; E11.65 Type 2 diabetes mellitus with hyperglycemia; Z79.4 Long term (current) use of insulin
CPT/HCPCS: 36415; 80053; 80061; 82043; 85025

== ENCOUNTER 2022-03-25 09:29 | Outpatient (REF) | payer OTHER, MEDICAID, SELFPAY ==
[2022-03-25 12:07] LABS: Prostate Specific Antigen 1.62 ng/mL (<0.05-4.0)
== END 2022-03-25 09:30 | disposition home or self-care (01) ==
LOC: HO.10HDL 09:29
PROVIDERS: Visit Provider Urology
DX: Z12.5 Encounter for screening for malignant neoplasm of prostate (principal); C61 Malignant neoplasm of prostate
CPT/HCPCS: 36415; 84153

== ENCOUNTER → 2022-03-28 09:55 | Outpatient (BNVA) | payer OTHER, MEDICAID, SELFPAY | PROVIDERS: PCP Internal Medicine; Visit Provider Urology | DX: C61 Malignant neoplasm of prostate (principal); N40.1 Benign prostatic hyperplasia with lower urinary tract symptoms; R35.1 Nocturia; N40.0 Benign prostatic hyperplasia without lower urinary tract symptoms; N13.8 Other obstructive and reflux uropathy | CPT/HCPCS: 99212 ==

== ENCOUNTER → 2022-06-20 10:51 | Outpatient (BNVA) | payer OTHER, MEDICAID, SELFPAY | PROVIDERS: PCP Internal Medicine; Visit Provider Internal Medicine Gastroenterology | DX: Z12.11 Encounter for screening for malignant neoplasm of colon (principal); R10.32 Left lower quadrant pain; G89.29 Other chronic pain; K59.09 Other constipation; K63.5 Polyp of colon; Z80.0 Family history of malignant neoplasm of digestive organs | CPT/HCPCS: 99212 ==

== ENCOUNTER → 2022-06-28 10:57 | Outpatient (BNVA) | payer OTHER, MEDICAID, SELFPAY | PROVIDERS: PCP Internal Medicine; Visit Provider Urology | DX: C61 Malignant neoplasm of prostate (principal); N40.1 Benign prostatic hyperplasia with lower urinary tract symptoms; R35.1 Nocturia | CPT/HCPCS: 51798 ==

== ENCOUNTER 2022-07-05 07:32 | Outpatient (REF) | payer OTHER, MEDICAID, SELFPAY ==
[2022-07-05 10:37] LABS: MANUAL DIFF FLAG NO
[2022-07-05 10:42] LABS: Basophils Percent Auto 0.5 % (0-2); Eosinophils Absolute Auto 0.1 X10*3/uL (0.0-0.4); Eosinophils Percent Auto 2.1 % (0-4); Hematocrit 38.8 % (42.0-52.0); Hemoglobin 13.2 g/dl (14.0-18.0); Lymphocytes Absolute Auto 1.3 X10*3/uL (1.2-4.9); Lymphocytes Percent Auto 35.5 % (20-40); Mean Corpuscular Hemoglobin 30.4 pg (27.0-33.0); Mean Corpuscular Volume 89.4 fL (80.0-98.0); Mean Platelet Volume 10.9 fL (9.4-12.4); Monocytes Absolute Auto 0.4 X10*3/uL (0.1-1.2); Monocytes Percent Auto 10.3 % (2-11); Neutrophils Absolute Auto 1.9 x10*3/uL (2.0-8.3); Neutrophils Percent Auto 51.6 % (45-73); Platelet Count 178 X10*3/uL (160-400); Red Blood Count 4.34 X10*6/uL (4.60-5.80); Red Cell Distribution Width 12.6 % (11.0-16.0); White Blood Count 3.8 X10*3/uL (4.8-10.8)
[2022-07-05 11:12] LABS: Creatinine Urine 183.24 mg/dL; Microalbum/Creatinine Ratio Ur 165.3 ug/mg cr
[2022-07-05 11:15] LABS: Alanine Aminotransferase 24 U/L (0-40); Albumin Level 4.4 g/dL (3.5-5.0); Alkaline Phosphatase 42 U/L (39-117); Anion Gap 15 (12-20); Aspartate Amino Transferase 22 U/L (5-37); Bilirubin Total 0.9 mg/dL (0.0-1.0); Blood Urea Nitrogen 13 mg/dL (9-16); Calcium 9.3 mg/dL (8.4-10.2); Carbon Dioxide 27 mmol/L (22-29); Chloride 104 mmol/L (96-108); Cholesterol 123 mg/dL; Estimated Glomerular Filt Rate > 60; Glucose Fasting 34 mg/dL (60-99); HDL Cholesterol 41 mg/dL; LDL Cholesterol Calculated 71 mg/dl; Potassium 3.2 mmol/L (3.3-5.1); Sodium 143 mmol/L (135-145); Total Protein 7.4 g/dL (6.5-8.0); Triglycerides 55 mg/dL
[2022-07-05 11:16] LABS: Vitamin D 25-OH Total 40.3 ng/mL (>30)
== END 2022-07-05 07:33 | disposition home or self-care (01) ==
LOC: HO.10HDL 07:32
PROVIDERS: Visit Provider Internal Medicine
DX: E55.9 Vitamin D deficiency, unspecified (principal); E78.5 Hyperlipidemia, unspecified; G43.009 Migraine without aura, not intractable, without status migrainosus; D64.9 Anemia, unspecified; R10.32 Left lower quadrant pain; G89.29 Other chronic pain; E11.65 Type 2 diabetes mellitus with hyperglycemia; C61 Malignant neoplasm of prostate; Z79.4 Long term (current) use of insulin
CPT/HCPCS: 36415; 80053; 80061; 82043; 82306; 85025

== ENCOUNTER 2022-08-19 07:31 | Outpatient (REF) | payer OTHER, MEDICAID, SELFPAY ==
[2022-08-19 11:21] LABS: Blood Urea Nitrogen 14 mg/dL (9-16); Estimated Glomerular Filt Rate > 60
== END 2022-08-19 07:32 | disposition home or self-care (01) ==
LOC: HO.10HDL 07:31
PROVIDERS: Visit Provider Internal Medicine Gastroenterology
DX: K59.09 Other constipation (principal); G89.29 Other chronic pain; R10.32 Left lower quadrant pain
CPT/HCPCS: 36415; 82565; 84520

== ENCOUNTER 2022-08-27 08:34 | Outpatient (REF) | payer OTHER, MEDICAID, SELFPAY ==
--- NOTE | ~2022-08-27 | CT_ITS ---
EXAMINATION: CT ABDOMEN AND PELVIS WITH CONTRAST CLINICAL INFORMATION: Left lower quadrant pain COMPARISON: Previous CT of the abdomen and pelvis August 2016 TECHNIQUE: Multidetector volumetric images were obtained from the superior aspect of the liver through the pubic symphysis following administration 85 mL of Omnipaque 350 intravenous contrast. Sagittal and coronal reformatted images were obtained on the technologist's workstation. Oral contrast: Yes This CT examination was performed using dose optimization techniques as appropriate, variously including the following: *Automated exposure control *Adjustment of mA and/or kV according to patient size (this includes techniques or standardized protocols for targeted exams where dose is matched to indication/reason for exam; i.e. extremities or head) *Use of iterative reconstruction technique DLP: 520 mGy-cm FINDINGS: LUNG BASES: The visualized lung bases are clear. There is a small pericardial effusion. LIVER, GALLBLADDER, AND BILIARY TREE: The liver is normal in size, shape, and attenuation. No focal hepatic lesion or biliary ductal dilatation is present. The gallbladder is unremarkable with no evidence of radiopaque gallstones, gallbladder wall thickening, or obvious pericholecystic inflammatory changes. PANCREAS: Unremarkable. SPLEEN: Unremarkable. ADRENAL GLANDS: Unremarkable. KIDNEYS AND URETERS: The kidneys are normal in size, shape, and attenuation. No hydronephrosis, hydroureter, or calculi seen. No perinephric stranding. BLADDER: Not optimally distended. GASTROINTESTINAL TRACT: The small and large bowel are unremarkable. The appendix is unremarkable. ABDOMINAL WALL: Fat in both inguinal canals. Post surgical change to the supraumbilical region. No ventral hernia. LYMPH NODES: Normal. VASCULAR: Mild atherosclerotic disease. PELVIC VISCERA: Question TURP defect. The prostate gland does not appear enlarged. OSSEOUS STRUCTURES: Degenerative changes of the spine. CT/CT abdomen pelvis w IV con IMPRESSION: No acute findings. Fleischner guidelines were followed.
[2022-08-27] MEDS: iohexoL 350 MG/ML 75 ML INFUS..BTL 85 ML IV (11:22)
[2022-08-27] MEDS: Barium Sulfate Oral (Vanilla) 450 ML ORAL.SUSP 900 ML PO (11:34)
== END 2022-08-27 08:35 | disposition home or self-care (01) ==
LOC: HO.CT 08:34
PROVIDERS: PCP Internal Medicine; Visit Provider Internal Medicine Gastroenterology
DX: R10.32 Left lower quadrant pain (principal); G89.29 Other chronic pain
CPT/HCPCS: 74177; Q9967

== ENCOUNTER → 2022-09-19 07:55 | Outpatient (BNVA) | payer OTHER, MEDICAID, SELFPAY | PROVIDERS: PCP Internal Medicine; Referring Provider Internal Medicine; Visit Provider Internal Medicine Gastroenterology | DX: R10.32 Left lower quadrant pain (principal) ==

== ENCOUNTER 2022-10-22 09:06 | Outpatient (REF) | payer OTHER, MEDICAID, SELFPAY ==
[2022-10-22 10:53] LABS: Hematocrit 41.3 % (42.0-52.0); Hemoglobin 13.9 g/dl (14.0-18.0); Mean Corpuscular HGB Conc 33.7 g/dl (31.0-36.0); Mean Corpuscular Hemoglobin 29.8 pg (27.0-33.0); Mean Corpuscular Volume 88.6 fL (80.0-98.0); Mean Platelet Volume 10.9 fL (9.4-12.4); Platelet Count 176 X10*3/uL (160-400); Red Blood Count 4.66 X10*6/uL (4.60-5.80); Red Cell Distribution Width 12.7 % (11.0-16.0); Retic HGB Equivalent 35.3 pg (30.0-35.0); Reticulocyte Percent 1.3 % (0.5-1.8); Reticulocytes Absolute 0.059 X10*6/uL (0.026-0.095); White Blood Count 4.2 X10*3/uL (4.8-10.8)
[2022-10-22 11:13] LABS: Alanine Aminotransferase 21 U/L (0-40); Albumin Level 4.1 g/dL (3.5-5.0); Alkaline Phosphatase 41 U/L (39-117); Anion Gap 10 (12-20); Aspartate Amino Transferase 17 U/L (5-37); Bilirubin Total 1.3 mg/dL (0.0-1.0); Blood Urea Nitrogen 12 mg/dL (9-16); Calcium 9.5 mg/dL (8.4-10.2); Carbon Dioxide 31 mmol/L (22-29); Chloride 104 mmol/L (96-108); Cholesterol 132 mg/dL; Estimated Glomerular Filt Rate > 60; Glucose Fasting 60 mg/dL (60-99); HDL Cholesterol 39 mg/dL; LDL Cholesterol Calculated 82 mg/dl; Potassium 3.5 mmol/L (3.3-5.1); Sodium 141 mmol/L (135-145); Total Protein 6.9 g/dL (6.5-8.0); Triglycerides 56 mg/dL
[2022-10-22 11:23] LABS: Creatinine Urine 157.97 mg/dL; Microalbum/Creatinine Ratio Ur 119.6 ug/mg cr
[2022-10-22 11:31] LABS: Ferritin 50 ng/mL (20-250)
[2022-10-22 11:39] LABS: Vitamin B12 514 pg/mL (200-900); Vitamin D 25-OH Total 40.3 ng/mL (>30)
== END 2022-10-22 09:07 | disposition home or self-care (01) ==
LOC: HO.10HDL 09:06
PROVIDERS: Absent Provider Internal Medicine; Visit Provider Internal Medicine
DX: D75.89 Other specified diseases of blood and blood-forming organs (principal); E55.9 Vitamin D deficiency, unspecified; E11.9 Type 2 diabetes mellitus without complications; E78.5 Hyperlipidemia, unspecified
CPT/HCPCS: 36415; 80053; 80061; 82043; 82306; 82607; 82728; 85027; 85045

== ENCOUNTER 2022-11-21 08:01 | Outpatient (REF) | payer OTHER, MEDICAID, SELFPAY ==
[2022-11-21 11:01] LABS: Alanine Aminotransferase 23 U/L (0-40); Albumin Level 4.2 g/dL (3.5-5.0); Alkaline Phosphatase 40 U/L (39-117); Anion Gap 12 (12-20); Aspartate Amino Transferase 18 U/L (5-37); Bilirubin Total 1.1 mg/dL (0.0-1.0); Blood Urea Nitrogen 11 mg/dL (9-16); Carbon Dioxide 29 mmol/L (22-29); Chloride 104 mmol/L (96-108); Cholesterol 135 mg/dL; Estimated Glomerular Filt Rate > 60; Glucose Fasting 61 mg/dL (60-99); HDL Cholesterol 39 mg/dL; LDL Cholesterol Calculated 86 mg/dl; Potassium 3.7 mmol/L (3.3-5.1); Sodium 141 mmol/L (135-145); Triglycerides 52 mg/dL
[2022-11-21 11:06] LABS: Creatinine Urine 145.01 mg/dL; Microalbum/Creatinine Ratio Ur 110.3 ug/mg cr
== END 2022-11-21 08:02 | disposition home or self-care (01) ==
LOC: HO.10HDL 08:01
PROVIDERS: Visit Provider Internal Medicine
DX: E11.65 Type 2 diabetes mellitus with hyperglycemia (principal); E78.5 Hyperlipidemia, unspecified; Z79.4 Long term (current) use of insulin
CPT/HCPCS: 36415; 80053; 80061; 82043

== ENCOUNTER 2022-12-02 08:08 | Outpatient (REF) | payer OTHER, MEDICAID, SELFPAY ==
[2022-12-02 10:59] LABS: Alanine Aminotransferase 22 U/L (0-40); Albumin Level 4.2 g/dL (3.5-5.0); Alkaline Phosphatase 45 U/L (39-117); Anion Gap 10 (12-20); Aspartate Amino Transferase 18 U/L (5-37); Bilirubin Total 1.3 mg/dL (0.0-1.0); Blood Urea Nitrogen 13 mg/dL (9-16); Calcium 9.3 mg/dL (8.4-10.2); Carbon Dioxide 30 mmol/L (22-29); Chloride 103 mmol/L (96-108); Cholesterol 139 mg/dL; Estimated Glomerular Filt Rate > 60; Glucose Fasting 61 mg/dL (60-99); HDL Cholesterol 39 mg/dL; LDL Cholesterol Calculated 87 mg/dl; Potassium 3.3 mmol/L (3.3-5.1); Sodium 140 mmol/L (135-145); Total Protein 7.1 g/dL (6.5-8.0); Triglycerides 66 mg/dL
[2022-12-02 11:15] LABS: Creatinine Urine 151.12 mg/dL; Microalbum/Creatinine Ratio Ur 110.5 ug/mg cr
[2022-12-02 11:18] LABS: Vitamin D 25-OH Total 45.6 ng/mL (>30)
== END 2022-12-02 08:09 | disposition home or self-care (01) ==
LOC: HO.10HDL 08:08
PROVIDERS: Visit Provider Internal Medicine
DX: E11.9 Type 2 diabetes mellitus without complications (principal); E55.9 Vitamin D deficiency, unspecified; E78.5 Hyperlipidemia, unspecified
CPT/HCPCS: 36415; 80053; 80061; 82043; 82306

== ENCOUNTER → 2022-12-05 12:18 | Outpatient (BNVA) | payer OTHER, MEDICAID, SELFPAY | PROVIDERS: PCP Internal Medicine; Visit Provider Internal Medicine Gastroenterology | DX: Z13.89 Encounter for screening for other disorder (principal) ==

== ENCOUNTER 2022-12-17 08:33 | Outpatient (REF) | payer OTHER, MEDICAID, SELFPAY ==
[2022-12-17 11:03] LABS: Prostate Specific Antigen 2.79 ng/mL (<0.05-4.0)
== END 2022-12-17 08:34 | disposition home or self-care (01) ==
LOC: HO.10HDL 08:33
PROVIDERS: Visit Provider Urology
DX: Z12.5 Encounter for screening for malignant neoplasm of prostate (principal); C61 Malignant neoplasm of prostate
CPT/HCPCS: 36415; 84153

== ENCOUNTER 2022-12-19 10:41 | Emergency (ER) | payer OTHER, MEDICAID, SELFPAY ==
--- NOTE | ~2022-12-19 | XR_ITS ---
EXAMINATION: XR HIP, LEFT CLINICAL INFORMATION: Fall with pain COMPARISON: None available. TECHNIQUE: Two views of the left hip. Frontal view of the pelvis. FINDINGS: No fracture or dislocation. The hips are appropriately aligned. Mild joint space narrowing of both hips with subchondral sclerosis present. The pelvic rim is intact. The sacroiliac joints and pubic symphysis are intact. Normal bowel gas pattern. XR/XR hip LT w PEL1V IMPRESSION: No fracture or malalignment. Mild degenerative changes of the hips.
[2022-12-19 10:57] VITALS: BP 124/70; PULSE 69; RESP 18; TEMP 36.6; O2SAT 98; BMI 34.2
--- NOTE | 2022-12-19 11:28 | ED_ITS ---
HPI - Fall General Chief Complaint: Fall Stated Complaint: fall Time Seen by Provider: 12/19/22 11:11 Source: patient and histology aide Mode of arrival: ambulatory Limitations: language barrier History of Present Illness HPI Narrative: 57 yo male with history of depression, diabetes, hypertension, CVA with left- sided residual deficits here with 2 days of left buttocks pain after a slip and fall on a ramp. No hitting of the head or LOC. No radiation pain. No numbness or tingling in the legs. No numbness in the groin. No bowel or bladder incontinence. No fevers or chills. Patient is ambulatory Related Data Home Medications Medication Instructions Recorded Confirmed pen needle, diabetic 31 gauge x #50 ea 09/12/20 12/05/2211/14 latanoprost 0.005 % eye drops 1 drp ophthalmic (eye) DAILY 11/28/20 12/05/22 insulin glargine 100 unit/mL (3 28 unit subcut BID 07/11/22 12/05/22 mL) subcutaneous pen canagliflozin 100 mg tablet mg PO 09/19/22 12/05/22 (Invokana) citalopram 20 mg tablet 20 mg PO DAILY 09/19/22 12/05/22 oxybutynin chloride 5 mg tablet 5 mg PO Q8H PRN bladder spasms 09/19/22 12/05/22 tamsulosin 0.4 mg capsule mg PO 09/19/22 12/05/22 terazosin 5 mg capsule mg PO 09/19/22 12/05/22 Previous Rx's Medication Instructions Recorded dorzolamide 22.3 mg-timolol 6.8 1 drp ophthalmic (eye) BID #10 mL 06/04/21 mg/mL eye drops pen needle, diabetic 31 gauge x #100 ea 04/04/2201/14 metoprolol tartrate 50 mg tablet 50 mg PO BID 90 days #180 tabs 08/17/22 cholecalciferol (vitamin D3) 50 50 mcg PO DAILY 90 days #90 caps 09/03/22 mcg (2,000 unit) capsule (Vitamin D3) enalapril maleate 20 mg tablet 20 mg PO DAILY 90 days #90 tabs 09/03/22 linaclotide 145 mcg capsule 145 mcg PO QAM 30 days #30 caps 09/19/22 (Linzess) finasteride 5 mg tablet 5 mg PO DAILY 90 days #90 tabs 10/03/22 metformin 500 mg tablet 500 mg PO BID 90 days #180 tabs 10/03/22 amlodipine 10 mg tablet 10 mg PO DAILY 90 days #90 tabs 10/07/22 dulaglutide 0.75 mg/0.5 mL 0.75 mg (0.5 mL) subcut QWEEK 90 11/01/22 subcutaneous pen injector days #6.5 mL (Trulicity) atorvastatin 80 mg tablet 80 mg PO BEDTIME 90 days #90 tabs 11/26/22 simethicone 125 mg chewable tablet 125 mg PO TID PRN abdominal 11/26/22 (Gas Relief (simethicone)) distention 30 days #90 tabs Allergies Allergy/AdvReac Type Severity Reaction Status Date / Time No Known Allergies Allergy Verified 12/19/22 10:57 [No Known Allergies*] Review of Systems Review of Systems: Yes all other systems are reviewed and are negative Constitutional: Constitutional: Reports no additional constitutional complaints, Denies body ache(s), Denies chills, Denies fever(s), Denies headache(s) and Denies weakness Eyes: Eyes: Reports no additional eye complaints and Denies change in vision ENT: Reports system reviewed and no additional complaints, except as documented, Denies dizziness, Denies headache(s), Denies nasal congestion, Denies nasal discharge and Denies neck pain Cardiovascular: Cardiovascular: Reports no additional cardiovascular complaints, Denies chest pain, Denies leg edema and Denies dyspnea Respiratory: Respiratory: Reports no additional respiratory complaints, Denies cough and Denies dyspnea Gastrointestinal: Gastrointestinal: Reports no additional gastrointestinal complaints, Denies abdominal pain, Denies diarrhea, Denies nausea and Denies vomiting Genitourinary: Genitourinary: Denies urinary incontinence Musculoskeletal: Musculoskeletal: Reports no additional musculoskeletal complaints, Denies back pain, Reports arthralgias, Denies joint swelling, Denies neck pain, Denies numbness and Denies tingling Integumentary/Breasts: Skin/Breast: Reports system reviewed and no additional complaints, except as docu and Denies rash Neurologic: Reports system reviewed and no additional complaints, except as documented, Denies Abnormal speech present, Denies dizziness, Denies headache(s), Denies numbness, Denies tingling and Denies weakness PMFSH Past Medical History Attestation statement: The following information was validated with the patient. Source: old records reviewed and nursing notes reviewed Medical History Abdominal hernia Altered bowel function Bicytopenia BPH w/o urinary obs/LUTS Colon polyps Depression Diabetes Dyslipidemia Elevated PSA HTN (hypertension) Microalbuminuria Migraines Mild recurrent major depression Stroke Stroke Surgical History H/O umbilical hernia repair History of colonoscopy Family History Family History Mother No problems noted. Father Enlarged prostate Social History Social History Household Members: Spouse and Children Housing: Apartment Alcohol intake: former Patient Tobacco Use Status: Never used Tobacco e-Cigarette/Vaping Use: Never Used Second Hand Smoke Exposure: No Advance Directives: No service: No Current occupational status: unemployed Current occupational exposures/hazards: No Cognitive needs: Yes Hearing needs: No Vision needs: Yes Physical Exam Vital Signs: Vital Signs: Last Vital Signs Temp 98 F 12/19/22 10:57 Pulse 69 12/19/22 10:57 Resp 18 12/19/22 10:57 BP 124/70 12/19/22 10:57 Pulse Ox 98 12/19/22 10:57 O2 Del Method Room Air 12/19/22 10:57 BMI result Body Mass Index 34.2 Const: General: cooperative, healthy appearing, comfortable and no acute distress Orientation/consciousness: patient oriented x3 Limitations: no limitations HEENT: Head: Yes normal to inspection Ears: hearing grossly normal bilaterally General nose exam: Normal external nose present Face and sinus: Yes normal facial exam Mouth: Normal oral and palatal mucosa present Throat: Yes posterior oropharynx normal Eyes: General: appearance normal, both eyes and all related structures Pupils: Equal, round and reactive pupils present Neck: Neck: Yes normal visual inspection Chest: Chest palpation & inspection: normal inspection of the chest Resp: Effort & Inspection: normal respiratory effort Auscultation: clear to auscultation bilaterally Cardio: Rate: regular rate Rhythm: regular rhythm Peripheral pulses: Peripheral pulses 2+ throughout GI: Inspection: Yes normal to inspection Palpation (GI): Soft to palpation and nontender Auscultation: normal bowel sounds Back/Spine/Pelvis: Thoracic/Lumbar Spine: thoracic and lumbar spine normal to inspection Skin: General skin exam: no rashes or lesions noted Neuro: Other: Patient has some left-sided weakness at baseline for his previous stroke General: patient oriented x3 Cranial nerves: Yes Equal, round and reactive pupils present Cognition (Neuro): normal cognition Speech: No Abnormal speech present Gait exam (Neuro): Normal gait present Extrem: Other: Patient tenderness over the left posterior buttocks and posterior hip with no shortening, rotation or deformity. No ecchymosis seen. General: Yes normal to inspection Course Course Course Narrative: X-ray show no acute fracture. Likely contusion. Patient is ambulatory. Recommend supportive care at home, Tylenol for pain. Reviewed worrisome signs and symptoms of when to return to the emergency room. Comfortable plan for discharge home. Medical Decision Making Medical Decision Making [facility] Narrative: 57-year-old male here with left posterior buttocks and hip pain after mechanical fall 2 days ago. No AC therapy use. No additional complaints Will check x-rays Differential Diagnosis Differential Diagnoses: The differential diagnosis associated with the presentation includes Contusion Doubt fracture Independent Interpretation I performed an independent interpretation of an: Plain X-Ray Interpretation: I independently reviewed the x-ray and agree with radiologist report Radiology Impression Discussion of test interpretation with radiology: I have reviewed the radiologist's reading. Radiologist Impression: [place] [id number] XRay Report Signed Patient: Ruslan Whitmore MR#: [id number] : 1965 Acct:[id number] Age/Sex: 57 / M ADM Date: 12/19/22 Loc: HO.ED Attending Dr: Ordering Physician: Ness Salomon NP Date of Service: 12/19/22 Procedure(s): XR hip LT w PEL1V Accession Number(s): [id number] cc: Ness Salomon NP~ EXAMINATION: XR HIP, LEFT CLINICAL INFORMATION: Fall with pain COMPARISON: None available. TECHNIQUE: Two views of the left hip. Frontal view of the pelvis. FINDINGS: No fracture or dislocation. The hips are appropriately aligned. Mild joint space narrowing of both hips with subchondral sclerosis present. The pelvic rim is intact. The sacroiliac joints and pubic symphysis are intact. Normal bowel gas pattern. XR/XR hip LT w PEL1V IMPRESSION: No fracture or malalignment. Mild degenerative changes of the hips. ? Discharge Plan Discharge Clinical Impression: Contusion of buttock Patient Disposition: Home, Self-Care Instructions: Contusion in Adults (ED) Additional Instructions: Hielo a la sam. Estiramiento suave. Las radiograf?as no muestran fractura. Prescriptions: No Action dorzolamide-timolol 22.3-6.8 mg/mL drops 1 drp ophthalmic (eye) BID Qty: 10 3RF (DME) pen needle, diabetic 31 gauge x 5/16 needle See Rx Instructions .ROUTE .MEDSUPPLY Qty: 100 3RF Rx Instructions: USE 2 TIMES DAILY metoprolol tartrate 50 mg tablet 50 mg PO BID 90 Days Qty: 180 0RF enalapril maleate 20 mg tablet 20 mg PO DAILY 90 Days Qty: 90 0RF cholecalciferol (vitamin D3) [Vitamin D3] 50 mcg (2,000 unit) capsule 50 mcg PO DAILY 90 Days Qty: 90 1RF finasteride 5 mg tablet 5 mg PO DAILY 90 Days Qty: 90 1RF metformin 500 mg tablet 500 mg PO BID 90 Days Qty: 180 1RF amlodipine 10 mg tablet 10 mg PO DAILY 90 Days Qty: 90 1RF Trulicity 0.75 mg/0.5 mL pen injector 0.75 mg subcut QWEEK 90 Days Qty: 6.5 0RF insulin glargine 100 unit/mL (3 mL) insulin pen 28 unit subcut BID atorvastatin 80 mg tablet 80 mg PO BEDTIME 90 Days Qty: 90 1RF simethicone [Gas Relief (simethicone)] 125 mg tablet,chewable 125 mg PO TID PRN (Reason: abdominal distention) 30 Days Qty: 90 0RF (DME) pen needle, diabetic 31 gauge x 3/16 needle See Rx Instructions subcut .MEDSUPPLY Qty: 50 Rx Instructions: As directed latanoprost 0.005 % drops 1 drp ophthalmic (eye) DAILY citalopram 20 mg tablet 20 mg PO DAILY oxybutynin chloride 5 mg tablet 5 mg PO Q8H PRN (Reason: bladder spasms) terazosin 5 mg capsule PO Invokana 100 mg tablet PO tamsulosin 0.4 mg capsule PO Linzess 145 mcg capsule 145 mcg PO QAM 30 Days Qty: 30 3RF Referrals: Linnea Ramos MD [Primary Care Provider] - 1 week Interventions: ED Discharge Assessment Last Done: 12/19/22 12:44 Discharge Date/Time: 12/19/22 12:45 Print Language: Latvian
== END 2022-12-19 12:45 | disposition home or self-care (01) ==
PROVIDERS: Emergency Provider Emergency Medicine; PCP Internal Medicine
DX: S30.0XXA Contusion of lower back and pelvis, initial encounter (principal); W10.2XXA Fall (on)(from) incline, initial encounter; Y93.89 Activity, other specified; Y92.9 Unspecified place or not applicable; Y99.9 Unspecified external cause status
CPT/HCPCS: 73502; 99282; 99283

== ENCOUNTER → 2022-12-25 10:47 | Outpatient (BNVA) | payer OTHER, MEDICAID, SELFPAY | PROVIDERS: PCP Internal Medicine; Visit Provider Urology | DX: Z13.89 Encounter for screening for other disorder (principal) ==

== ENCOUNTER 2023-03-31 15:48 | Outpatient (AMB) | payer OTHER, SELFPAY ==
[2023-03-31 16:05] VITALS: BP 126/80; BMI 33.5
--- NOTE | 2023-03-31 16:05 | MHC.PC.OV ---
Vital Signs 03/31/23 16:05 Height 5 ft 3 in Weight 189 lb BMI 33.5 BP 126/80 Blood Pressure Location Lt brachial Position Sitting Intake Visit Reasons: dm,bp Intake Note: Patient here for a follow up BP, DM Webmethods Architect Required: No Accompanied by: Self / Same As Patient Allergies No Known Allergies [No Known Allergies*] Allergy (Verified 03/31/23 16:23) Medication List - Last Reconciled 03/31/23 by Linnea Subramanian MD amlodipine 10 mg PO DAILY 90 days atorvastatin 80 mg PO BEDTIME 90 days canagliflozin (Invokana) 100 mg PO DAILY cholecalciferol (vitamin D3) (Vitamin D3) 50 mcg PO DAILY 90 days citalopram 20 mg PO DAILY 90 days dorzolamide-timolol 22.3-6.8 mg/mL 1 drp ophthalmic (eye) BID dulaglutide (Trulicity) 0.75 mg (0.5 mL) subcut QWEEK 90 days enalapril maleate 20 mg PO DAILY 90 days finasteride 5 mg PO DAILY 90 days insulin glargine 28 units (0.28 mL) subcut BID latanoprost 0.005% 1 drp ophthalmic (eye) DAILY linaclotide (Linzess) 145 mcg PO QAM 30 days metformin 500 mg PO BID 90 days metoprolol tartrate 50 mg PO BID 90 days oxybutynin chloride 5 mg PO Q8H PRN pen needle, diabetic USE 2 TIMES DAILY pen needle, diabetic As directed simethicone (Gas Relief (simethicone)) 125 mg PO TID PRN 30 days terazosin 5 mg PO BEDTIME 90 days Tobacco use date assessed: 11/26/22 Dental Screening Dental Screen Date: 03/31/23 Did you have a dental visit in the last 12 months?: No Did you have a dental problem in the last 6 months where you did not have access to dental care?: No Was dental information given to patient?: Patient has dentist HPI HPI Comments History of Present Illness Details This is a 57-year-old male with diabetes mellitus type 2, hypertension, hyperlipidemia and mild major depression that comes today accompanied by for follow-up on his conditions. A1c within goal. LDL close to goal and was advised on dietary changes. Blood pressure stable. Depression also stable with medications. No chest pain or shortness of breath. Stroke in 2008 left him with left hemiplegia. [facility] Medical History Abdominal hernia Altered bowel function Bicytopenia BPH w/o urinary obs/LUTS Colon polyps Depression Diabetes Dyslipidemia Elevated PSA HTN (hypertension) Microalbuminuria Migraines Mild recurrent major depression Stroke Stroke Surgical History H/O umbilical hernia repair History of colonoscopy Family History Mother No problems noted. Father Enlarged prostate Social History Household Members: Spouse and Children Housing: Apartment Alcohol intake: former Patient Tobacco Use Status: Never used Tobacco e-Cigarette/Vaping Use: Never Used Second Hand Smoke Exposure: No service: No Current occupational status: unemployed Current occupational exposures/hazards: No Cognitive needs: Yes Hearing needs: No Vision needs: Yes Questionnaire Thrive Questionnaire Date Thrive assessed: 11/26/22 CORAL-7 AMB Questionnaire CORAL-7 Date CORAL - 7 assessed: 11/26/22 Source: Developed by Drs. Jesus Cox, Latisha Guaman, Bill Adams and colleagues, with an educational rene from [email or web address]. Review of Systems Const All systems reviewed & are unremarkable except as noted in HPI and below Eyes Reports no additional complaints, Denies change in vision and Denies other visual disturbances Card Denies chest pain at rest, Denies chest pain with activity, Denies edema, Denies irregular heart rhythm, Denies claudication, Denies dyspnea, Denies dyspnea on exertion, Denies orthopnea, Denies paroxysmal nocturnal dyspnea and Denies slow heart rate Resp Denies cough, Denies dyspnea and Denies dyspnea on exertion GI Denies abdominal pain, Denies change in bowel habits, Denies excessive flatus, Denies nausea and Denies vomiting Denies urinary hesitancy, Denies urinary incontinence and Denies urinary urgency Musc Denies abnormal gait, Denies atrophy, Denies deformity and Denies limited range of motion Skin/Breast Denies bleeding lesions, Denies changing lesions and Denies rash Neuro Denies abnormal gait and Denies lack of coordination Physical exam (Primary Care) Vital Signs: Last Vital Signs BP 126/80 03/31/23 16:05 BMI result Body Mass Index 33.5 Tobacco/Smoking Status: Tobacco use Status Tobacco use date assessed 11/26/22 03/31/23 16:08 Patient Tobacco Use Status Never used Tobacco 03/31/23 16:08 e-Cigarette/Vaping Use Never Used 03/31/23 16:08 Thrive Assessment: Date of Thrive Assessment Date Thrive assessed 11/26/22 03/31/23 16:08 Eyes General: appearance normal, both eyes and all related structures Eyelids: Yes eyelids normal Conjunctivae: conjunctivae normal Neck Neck: Yes normal visual inspection and Yes supple Resp Effort & Inspection: normal respiratory effort Auscultation: clear to auscultation bilaterally Cardio Jugular venous distension: no JVD Rate: regular rate Rhythm: regular rhythm Heart sounds: S1 normal heart sound present and S2 normal heart sound present Neuro Other: left hemiplegia Psych Appearance: grossly normal Results AMB Hemoglobin A1c AMB Hemoglobin A1c 6.2 % Last Edit by JIM Houston on 03/31/23 16:12 Results Reviewed Results Reviewed: Laboratory Last Values Hgb A1c (Clinic) 6.2 % (4.0-6.0) H 03/31/23 16:08 Assessment and Plan Assessment & Plan (1) Mild recurrent major depression: Code(s): F33.0 - Major depressive disorder, recurrent, mild Plan: Continue citalopram. (2) Hyperlipidemia LDL goal <70: Code(s): E78.5 - Hyperlipidemia, unspecified Plan: Continue statins. LDL goal less than 70. (3) HTN (hypertension): Code(s): I10 - Essential (primary) hypertension Qualifiers: Hypertension type: primary hypertension Qualified Code(s): I10 - Essential (primary) hypertension Plan: Continue enalapril and amlodipine. Blood pressure goal is equal or less than 130/80. 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 A1c goal is equal or less than 7%. Continue insulin. Orders: Orders Comprehensive [place]. Panel Fast 4 Months E78.5 - Hyperlipidemia, unspecified Lipid Panel 4 Months E78.5 - Hyperlipidemia, unspecified Microalbumin, Random (w Creat) 4 Months E11.9 - Type 2 diabetes mellitus without complications Vitamin D 25-OH Total 4 Months E55.9 - Vitamin D deficiency, unspecified AMB Hemoglobin A1c Today E11.9 - Type 2 diabetes mellitus without complications Medications: Discontinued linaclotide (Linzess) Discontinued Reason: Patient Refused 145 mcg PO QAM 30 days 30 caps 3RF Coding Level of Care Code Est Pt Level 4 (81730) Diagnoses Mild recurrent major depression F33.0 Hyperlipidemia LDL goal <70 E78.5 HTN (hypertension) I10 Hypertension type: primary hypertension Diabetes E11.65; Z79.4 Diabetes mellitus type: type 2 Diabetes mellitus care home insulin use: with care home use Diabetes mellitus complication status: with hyperglycemia Time Spent (min) 23
== END 2023-03-31 16:32 | disposition home or self-care (01) ==
LOC: HO.HMGH 15:49
PROVIDERS: PCP Internal Medicine; Visit Provider Internal Medicine
DX: I10 Essential (primary) hypertension (principal); E11.65 Type 2 diabetes mellitus with hyperglycemia; Z79.4 Long term (current) use of insulin; E11.69 Type 2 diabetes mellitus with other specified complication; F33.0 Major depressive disorder, recurrent, mild; E78.5 Hyperlipidemia, unspecified
CPT/HCPCS: 83036; 99214

== ENCOUNTER → 2023-05-28 13:08 | Outpatient (BNVA) | payer MEDICARE, SELFPAY | PROVIDERS: PCP Internal Medicine; Visit Provider Urology | DX: N40.1 Benign prostatic hyperplasia with lower urinary tract symptoms (principal); R35.1 Nocturia; C61 Malignant neoplasm of prostate | CPT/HCPCS: 99212 ==

== ENCOUNTER 2023-05-28 13:27 | Outpatient (AMB) | payer MEDICARE, SELFPAY ==
--- NOTE | 2023-05-28 13:08 | A.OFFVIS_ITS ---
Intake Intake Visit Reasons: MRI- (Sandy 05/08) follow up Intake Note: Patient is Present for Follow Up Urology Medication: TERAZOSIN Antibiotic Allergies: NKA Blood Thinners: no Pharmacy: [facility] Allergies No Known Allergies [No Known Allergies*] Allergy (Verified 05/28/23 13:10) HPI HPI Comments History of Present Illness Details Ruslan is a pleasant Gabonese-speaking male. He is seen for the following urologic conditions - prostate cancer - Lower urinary tract symptoms Gabonese translation in office performed a qualified medical center representative MRI shows contained 1.2 cm lesion apical Combination therapy for prostate lower urinary tract symptoms Finasteride 5 mg with terazosin 10 mg Prostate Cancer Grade Group 1, low volume initial management active surveillance 11/[address] Rodriguez November 2020 PSA diagnosis 6.6 04/23 - prostate MRI 1.2 cm left anterior apical PI-RADS 4, organ confined Initial therapy active surveillance with finasteride pT1c Prostate cancer pathology 12/20 Histologic type: Acinar adenocarcinoma Marc score: Mears Grade 3 + 3 = 6 (Parts B and H) LBM 5%, RBM 5% Tumor quantitation: Number cores positive: 2, Total number of cores: 12 % of tissue involved: less than 5% (Part B); 5-10% (Part H) - LVI, PN negative PSA 04/21 3.1, 10/23 2.3, 03/22 1.6, 12/22 2.8 Lower urinary tract symptoms Combination therapy 12/20 - finasteride 5 mg daily, tamsulosin 0.4 mg daily Primary complaint nocturia x3 down from 5-6 GreenLight laser performed October 2021 Laboratory investigations include - 12/19 4.4, 07/21 4.5 - 10/22 6.6 PFSH Medical History Mild recurrent major depression Microalbuminuria Bicytopenia Colon polyps Migraines Dyslipidemia Stroke Abdominal hernia BPH w/o urinary obs/LUTS Altered bowel function Elevated PSA Stroke Depression Diabetes HTN (hypertension) Surgical History H/O umbilical hernia repair History of colonoscopy Family History Mother No problems noted. Father Enlarged prostate Social History Household Members: Spouse and Children Housing: Apartment Alcohol intake: former Patient Tobacco Use Status: Never used Tobacco e-Cigarette/Vaping Use: Never Used Second Hand Smoke Exposure: No service: No Current occupational status: unemployed Current occupational exposures/hazards: No Cognitive needs: Yes Hearing needs: No Vision needs: Yes Review of Systems Const Denies chills and Denies fever(s) Card Reports no additional complaints and Denies syncope Resp Denies cough GI Denies abdominal pain and Denies heartburn Reports as per HPI and Denies change in libido Neuro Denies syncope Psych Denies change in libido Endo Denies change in libido Physical Exam Const General: cooperative, healthy appearing, comfortable and no acute distress Orientation/consciousness: patient oriented x3 HEENT Face and sinus: Yes normal facial exam Mouth: moist mucous membranes Neck Neck: Yes normal visual inspection, Yes full ROM and Yes trachea midline Chest Chest palpation & inspection: normal inspection of the chest Resp Effort & Inspection: normal respiratory effort, able to speak in complete sentences and no respiratory distress GI Inspection: Yes normal to inspection Back/Spine/Pelvis Cervical Spine: normal cervical lordosis Thoracic/Lumbar Spine: thoracic and lumbar spine normal to inspection Skin General skin exam: no rashes or lesions noted Neuro General: patient oriented x3, gait normal, tone normal and moves all extremities Extrem General: Yes normal to inspection and Yes capillary refill normal Assessment & Plan Assessment & Plan (1) Prostate cancer: Comment: Low volume, low-grade 2020 Code(s): C61 - Malignant neoplasm of prostate (2) Nocturia associated with benign prostatic hyperplasia: Code(s): N40.1 - Benign prostatic hyperplasia with lower urinary tract symptoms; R35.1 - Nocturia Plan Ultrasound-guided prostate biopsy September Patient Instructions: Imaging studies, laboratory and physical exam results were discussed and reviewed in detail. No major barriers to patient understanding were identified. An opportunity to ask questions regarding the treatment plan was provided. All questions were answered. The patient expressed understanding and agreement with the above treatment plan. The patient is aware they should contact our office by phone for worsening of their current condition or the appearance of new urologic symptoms. Compliance is encouraged with any medications and followup testing that is ordered. It is a privilege to participate in the urologic care of your patient. If you have any questions or concerns regarding treatment for the above conditions, or other urologic issues, please do not hesitate to contact me. The office telephone contact is [phone]. This note is constructed using voice recognition software. While every effort has been made to ensure accuracy supervisor billposting errors may have been included. Yours sincerely, Dr Khurram Rodriguez MD, [facility] - Urology Providers of Expert, Compassionate Care for the Genitourinary System Telehealth Telehealth Location of provider rendering services: practice address Location of patient: address on file Patient Identification confirmed using: Name, : Yes Telehealth method: voice only Patient verbally consented to treatment: Yes Patient verbally consented to billing insurance company: Yes Patient informed of any privacy concerns related to visit: Yes Coding Level of Care Code Est Pt Level 4 (67889) Diagnoses Prostate cancer C61 Nocturia associated with benign prostatic hyperplasia N40.1; R35.1
== END 2023-05-28 13:52 | disposition home or self-care (01) ==
PROVIDERS: PCP Internal Medicine; Visit Provider Urology
DX: C61 Malignant neoplasm of prostate (principal); N40.1 Benign prostatic hyperplasia with lower urinary tract symptoms; R35.1 Nocturia
CPT/HCPCS: 99214

== ENCOUNTER 2023-06-12 11:53 | Outpatient (AMB) | payer MEDICARE, SELFPAY ==
--- NOTE | 2023-06-12 11:59 | MHC.OFFVIS ---
Intake Vital Signs 06/12/23 12:06 Height 5 ft 3 in Weight 185 lb BMI 32.8 BP 130/58 L Blood Pressure Location Lt brachial Position Sitting Pulse 64 Intake Visit Reasons: 6 mnth follow up Intake Note: Patient follow up for chronic constipation. Patient cc: diarrhea, and denies any other GI issues. 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 Rocket Engine Component Mechanic Name: Karthikeyan [id number] Accompanied by: Daughter Allergies No Known Allergies [No Known Allergies*] Allergy (Verified 06/12/23 12:03) Medication List - Last Reconciled 06/12/23 by Lance Horan MD amlodipine 10 mg PO DAILY 90 days atorvastatin 80 mg PO BEDTIME 90 days cholecalciferol (vitamin D3) (Vitamin D3) 50 mcg PO DAILY 90 days citalopram 20 mg PO DAILY 90 days dorzolamide-timolol 22.3-6.8 mg/mL 1 drp ophthalmic (eye) BID dulaglutide (Trulicity) 0.75 mg (0.5 mL) subcut QWEEK 90 days empagliflozin (Jardiance) 10 mg PO DAILY 90 days enalapril maleate 20 mg PO DAILY 90 days finasteride 5 mg PO DAILY 90 days insulin degludec (Tresiba FlexTouch U-100 insulin) 28 units (0.28 mL) subcut BID 90 days latanoprost 0.005% 1 drp ophthalmic (eye) DAILY metformin 500 mg PO BID 90 days metoprolol tartrate 50 mg PO BID 90 days oxybutynin chloride 5 mg PO Q8H PRN pen needle, diabetic USE 2 TIMES DAILY pen needle, diabetic As directed simethicone (Gas Relief (simethicone)) 125 mg PO TID PRN 30 days terazosin 5 mg PO BEDTIME 90 days HPI 6 mnth follow up HPI Details GI clinic visit for this 57 year old Kiswahili-speaking male for FU of lower abdominal pain, constipation and colon polyps IMAGING STUDIES:? 08/27/[address] SCAN:??No acute findings. ENDOSCOPIC STUDIES: 10/2021 COLONOSCOPY SHOWED: One diminutive appearing polyp was biopsied Moderate diverticulosis seen in the sigmoid colon Moderate hemorrhoids on antegrade exam. Plan:? I will send a letter with pathology results Repeat Colonoscopy interval based on path results - in 5 years if polyps are adenomatous and due to fair prep. 12/2014 colonoscopy was performed by Dr. Downs: Digital rectal exam revealed the prostate to be normal to digital palpation. The video colonoscope was introduced without difficulty. It was navigated into the rectosigmoid/sigmoid on up through the sigmoid, descending and transverse colon down into the cecal cap. Appendiceal orifice was well seen. The ileocecal valve was well seen. On slowly withdrawing the scope 2 diminutive polyps were removed excisionally at 35 cm. (These had more of a hyperplastic appearance endoscopically). The scope continued to be withdrawn. The anorectal verge was clear. 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 Pt complains intermittent diarrhea Notes constipation sometimes - has constipation x 3 days in a week and diarrhea two days a week. Pt denies abdominal pain. PAST VISIT: Constipation is getting better. When I eat red meat, I get diarrhea Has a BM twice a week with intermittent straining and hard stools. Sometimes he notes abdominal pain - every day when he wakes up in the morning. Notes pain when he gets up from a sitting position When I get up or when I sit I feel the pain Has a BM twice a week. Taking Senna every other day - and it gives him diarrhea. Pt complains of intermittent lower abdominal pain for the past 6 months. Pain is 5/10 in intensity and states pain in the joints. Has the pain every day when he gets up from the bed or the chair and hurts when he sits and walks. Pain is not related to food intake. Denies change in pain after a BM. Denies pain in the back. Patient denies symptoms of abdominal pain, heartburn, dysphagia, nausea, vomiting, change in appetite or weight.? Has a BM twice a week - chronic constipation for the past several yrs. Denies recent diarrhea, black stools or rectal bleeding. Patient denies major cardiac or pulmonary problems, loud snoring or sleep apnea Had nausea and vomiting after anesthesia in the past. Denies being on chronic anticoagulation. Patient denies known family history of colon polyps, or other GI malignancies. Dad had colon cancer at age not known to?the patient [facility] Medical History Mild recurrent major depression Microalbuminuria Bicytopenia Colon polyps Migraines Dyslipidemia Stroke Abdominal hernia BPH w/o urinary obs/LUTS Altered bowel function Elevated PSA Stroke Depression Diabetes HTN (hypertension) Surgical History H/O umbilical hernia repair History of colonoscopy Family History Mother No problems noted. Father Enlarged prostate Social History Household Members: Spouse and Children Housing: Apartment Alcohol intake: former Patient Tobacco Use Status: Never used Tobacco e-Cigarette/Vaping Use: Never Used Second Hand Smoke Exposure: No service: No Current occupational status: unemployed Current occupational exposures/hazards: No Cognitive needs: Yes Hearing needs: No Vision needs: Yes Review of Systems Const All systems reviewed & are unremarkable except as noted in HPI and below Physical Exam Vital Signs: Last Vital Signs Pulse 64 06/12/23 12:06 BP 130/58 L 06/12/23 12:06 BMI result Body Mass Index 32.8 Const General: healthy appearing and no acute distress Nutritional Appearance: obese Orientation/consciousness: patient oriented x3 Limitations: language barrier and ambulation with cane HEENT Head: Yes normal to inspection Ears: hearing grossly normal bilaterally Eyes Sclerae: sclerae normal Pupils: Equal, round and reactive pupils present Neck Neck: Yes normal visual inspection Chest Chest palpation & inspection: normal inspection of the chest Resp Effort & Inspection: normal respiratory effort Auscultation: clear to auscultation bilaterally Cardio Palpation: normal PMI Rate: regular rate Rhythm: regular rhythm Heart sounds: S1 normal heart sound present, S2 normal heart sound present and no murmurs GI Palpation (GI): Soft to palpation, nontender and No hepatosplenomegaly present Auscultation: normal bowel sounds Rectal Exam - Male: Yes deferred Skin General skin exam: no rashes or lesions noted Neuro General: patient oriented x3, gait normal and moves all extremities Cranial nerves: Yes Equal, round and reactive pupils present Psych Appearance: grossly normal Mental Status: mental status grossly normal Assessment & Plan Assessment & Plan (1) Chronic left lower quadrant pain: Code(s): R10.32 - Left lower quadrant pain; G89.29 - Other chronic pain (2) Family history of colon cancer: Code(s): Z80.0 - Family history of malignant neoplasm of digestive organs (3) Colon cancer screening: Comment: 10/2021 COLONOSCOPY SHOWED: One hyperplastic polyp was biopsied Moderate diverticulosis seen in the sigmoid colon Moderate hemorrhoids on antegrade exam. Plan: Repeat Colonoscopy interval based on path results - in 5 years if polyps are adenomatous and due to fair prep. Code(s): Z12.11 - Encounter for screening for malignant neoplasm of colon (4) Chronic constipation: Code(s): K59.09 - Other constipation Plan 57 YM with DM, Htn, hx of CVA referred by Dr Martinez to schedule his FU colonoscopy Patient has a family history of colon cancer in his dad. Two hyperplastic polyps were removed during last colonoscopy in 2014.? 10/2021 colonoscopy was performed and results as noted above. FU colon is advised in 5 yrs (he will be due for repeat colon in 2026. Patient was advised to continue senna for chronic constipation. Abd CT scan was negative. Patient was advised to start linaclotide 145 mcg daily for constipation (since he notes diarrhea with Senna). Lower abdominal pain appears to be musculoskeletal in etiology (not of GI origin) since pt notes transient pain when he sits up and pain resolves spontaneously after a few minutes 06/12/23 Pt advised to take a fibre supplement for diarrhea alternating with constipation FU in 3-4 month Medications: New psyllium mix into at least 8 oz of water or juice before administering 1 tbsp PO DAILY 60 days 300 grams 2RF K59.09 - Other constipation Coding Level of Care Code Est Pt Level 4 (77744) Diagnoses Chronic left lower quadrant pain R10.32; G89.29 Family history of colon cancer Z80.0 Colon cancer screening Z12.11 Chronic constipation K59.09 Time Spent (min) 20
[2023-06-12 12:06] VITALS: BP 130/58; PULSE 64; BMI 32.8
== END 2023-06-12 12:27 | disposition home or self-care (01) ==
PROVIDERS: PCP Internal Medicine; Visit Provider Internal Medicine Gastroenterology
DX: R10.32 Left lower quadrant pain (principal); G89.29 Other chronic pain; Z80.0 Family history of malignant neoplasm of digestive organs; Z12.11 Encounter for screening for malignant neoplasm of colon; K59.09 Other constipation
CPT/HCPCS: 99214

== ENCOUNTER → 2023-06-12 11:53 | Outpatient (BNVA) | payer MEDICARE, SELFPAY | PROVIDERS: PCP Internal Medicine; Visit Provider Internal Medicine Gastroenterology | DX: R10.32 Left lower quadrant pain (principal); G89.29 Other chronic pain; K59.09 Other constipation; Z80.0 Family history of malignant neoplasm of digestive organs | CPT/HCPCS: 99212 ==

== ENCOUNTER 2023-08-04 08:59 | Outpatient (REF) | payer MEDICARE, SELFPAY ==
[2023-08-04 10:52] LABS: Alanine Aminotransferase 25 U/L (0-40); Albumin Level 4.1 g/dL (3.5-5.0); Alkaline Phosphatase 43 U/L (39-117); Anion Gap 7 (12-20); Aspartate Amino Transferase 20 U/L (5-37); Bilirubin Total 0.9 mg/dL (0.0-1.0); Blood Urea Nitrogen 12 mg/dL (9-16); Calcium 9.4 mg/dL (8.4-10.2); Carbon Dioxide 32 mmol/L (22-29); Chloride 106 mmol/L (96-108); Cholesterol 107 mg/dL (<200); Estimated Glomerular Filt Rate > 60; HDL Cholesterol 36 mg/dL (>40); LDL Cholesterol Calculated 62 mg/dL (<100); Potassium 3.2 mmol/L (3.3-5.1); Sodium 142 mmol/L (135-145); Total Protein 7.4 g/dL (6.5-8.0); Triglycerides 49 mg/dL (<150)
[2023-08-04 10:55] LABS: Glucose Fasting 50 mg/dL (60-99)
[2023-08-04 11:04] LABS: Creatinine Urine 185.97 mg/dL; Microalbum/Creatinine Ratio Ur 76.3 ug/mg cr (<30)
[2023-08-04 11:08] LABS: Vitamin D 25-OH Total 43.8 ng/mL (>30)
== END 2023-08-04 09:00 | disposition home or self-care (01) ==
LOC: HO.10HDL 08:59
PROVIDERS: Visit Provider Internal Medicine
DX: E78.5 Hyperlipidemia, unspecified (principal); E11.9 Type 2 diabetes mellitus without complications; E55.9 Vitamin D deficiency, unspecified
CPT/HCPCS: 36415; 80053; 80061; 82043; 82306; 82570

== ENCOUNTER 2023-08-06 15:45 | Outpatient (AMB) | payer MEDICARE, SELFPAY ==
[2023-08-06 15:52] VITALS: BP 130/78; BMI 33.1
--- NOTE | 2023-08-06 15:52 | A.OFFPC_ITS ---
Vital Signs 08/06/23 15:52 Height 5 ft 3 in Weight 187 lb BMI 33.1 BP 130/78 Blood Pressure Location Rt brachial Position Sitting Intake Visit Reasons: dm Intake Note: Patient here for a follow up DM Parachute Harness Rigger Required: No Accompanied by: Daughter Allergies No Known Allergies [No Known Allergies*] Allergy (Verified 08/06/23 16:02) Medication List - Last Reconciled 08/06/23 by Linnea Subramanian MD amlodipine 10 mg PO DAILY 90 days atorvastatin 80 mg PO BEDTIME 90 days cholecalciferol (vitamin D3) (Vitamin D3) 50 mcg PO DAILY 90 days citalopram 20 mg PO DAILY 90 days dorzolamide-timolol 22.3-6.8 mg/mL 1 drp ophthalmic (eye) BID dulaglutide (Trulicity) 0.75 mg (0.5 mL) subcut QWEEK 90 days empagliflozin (Jardiance) 10 mg PO DAILY 90 days enalapril maleate 20 mg PO DAILY 90 days finasteride 5 mg PO DAILY 90 days insulin degludec (Tresiba FlexTouch U-100 insulin) 26 units (0.26 mL) subcut BID 90 days latanoprost 0.005% 1 drp ophthalmic (eye) DAILY metformin 500 mg PO BID 90 days metoprolol tartrate 50 mg PO BID 90 days oxybutynin chloride 5 mg PO Q8H PRN pen needle, diabetic USE 2 TIMES DAILY pen needle, diabetic As directed potassium chloride ER 20 mEq (2 x 10 mEq) PO DAILY 3 days psyllium 1 tbsp PO DAILY 60 days simethicone (Gas Relief (simethicone)) 125 mg PO TID PRN 30 days terazosin 5 mg PO BEDTIME 90 days Tobacco use date assessed: 11/26/22 Dental Screening Dental Screen Date: 08/06/23 Did you have a dental visit in the last 12 months?: No Did you have a dental problem in the last 6 months where you did not have access to dental care?: No Was dental information given to patient?: Patient has dentist HPI HPI Comments History of Present Illness Details This is a 57-year-old male with diabetes mellitus type 2 on long-term current use of insulin, hypertension, hyperlipidemia, mild recurrent major depression and a stroke with left hemiplegia as residual deficit that comes today for follow-up on his conditions accompanied by daughter. A1c within goal but he has been having episodes of hypoglycemia that is symptomatic with dizziness. I will increase Tresiba from 26 units twice a day to 22 units twice a day. He will benefit from having a Sensor to check his blood glucose few times a day. Blood pressure stable. LDL within goal. Depression well controlled with medications. Due to his stroke has required some assistance for his basic activities of daily living. Able to walk with a cane. [facility] Medical History Mild recurrent major depression Microalbuminuria Bicytopenia Colon polyps Migraines Dyslipidemia Stroke Abdominal hernia BPH w/o urinary obs/LUTS Altered bowel function Elevated PSA Stroke Depression Diabetes HTN (hypertension) Surgical History H/O umbilical hernia repair History of colonoscopy Family History Mother No problems noted. Father Enlarged prostate Social History Household Members: Spouse and Children Housing: Apartment Alcohol intake: former Patient Tobacco Use Status: Never used Tobacco e-Cigarette/Vaping Use: Never Used Second Hand Smoke Exposure: No service: No Current occupational status: unemployed Current occupational exposures/hazards: No Cognitive needs: Yes Hearing needs: No Vision needs: Yes Questionnaire Thrive Questionnaire Date Thrive assessed: 11/26/22 CORAL-7 AMB Questionnaire CORAL-7 Date CORAL - 7 assessed: 11/26/22 Source: Developed by Drs. Jesus Cox, Latisha Guaman, Bill Adams and colleagues, with an educational rene from [employer] software. Review of Systems Const All systems reviewed & are unremarkable except as noted in HPI and below Eyes Reports no additional complaints, Denies change in vision and Denies other visual disturbances Card Denies chest pain at rest, Denies chest pain with activity, Denies edema, Denies irregular heart rhythm, Denies claudication, Denies dyspnea, Denies dyspnea on exertion, Denies orthopnea, Denies paroxysmal nocturnal dyspnea and Denies slow heart rate Resp Denies cough, Denies dyspnea and Denies dyspnea on exertion GI Denies abdominal pain, Denies change in bowel habits, Denies excessive flatus, Denies nausea and Denies vomiting Denies urinary hesitancy, Denies urinary incontinence and Denies urinary urgency Musc Denies abnormal gait, Denies atrophy, Denies deformity and Denies limited range of motion Skin/Breast Denies bleeding lesions, Denies changing lesions and Denies rash Neuro Denies abnormal gait and Denies lack of coordination Physical exam (Primary Care) Vital Signs: Last Vital Signs BP 130/78 08/06/23 15:52 BMI result Body Mass Index 33.1 Tobacco/Smoking Status: Tobacco use Status Tobacco use date assessed 11/26/22 08/06/23 15:55 Patient Tobacco Use Status Never used Tobacco 08/06/23 15:55 e-Cigarette/Vaping Use Never Used 08/06/23 15:55 Thrive Assessment: Date of Thrive Assessment Date Thrive assessed 11/26/22 08/06/23 15:55 Eyes General: appearance normal, both eyes and all related structures Eyelids: Yes eyelids normal Conjunctivae: conjunctivae normal Neck Neck: Yes normal visual inspection and Yes supple Resp Effort & Inspection: normal respiratory effort Auscultation: clear to auscultation bilaterally Cardio Jugular venous distension: no JVD Rate: regular rate Rhythm: regular rhythm Heart sounds: S1 normal heart sound present and S2 normal heart sound present Neuro Motor exam (neuro): Abnormal motor strength present (1/5 in left upper limb, 5/5 in right upper limb and bilateral lower limbs) Psych Appearance: grossly normal Office Procedures Flu Questionnaire Does the patient have a severe egg allergy?: No Results AMB Hemoglobin A1c AMB Hemoglobin A1c 6.5 % Last Edit by JIM Houston on 08/06/23 16:0 2 Immunizations flu vacc [id number] 6mos up(PF) 60 mcg(15 mcgx4)/0.5 mL IM syringe Performing Provider: Linnea Subramanian MD [facility] Documented (not given) by: JIM Houston on 08/06/23 16:12 Reason Not Given: Not Given Results Reviewed Results Reviewed: Laboratory Last Values Hgb A1c (Clinic) 6.5 % (4.0-6.0) H 08/06/23 15:55 Assessment and Plan Assessment & Plan (1) Diabetes: Code(s): E11.9 - Type 2 diabetes mellitus without complications Qualifiers: Diabetes mellitus complication status: with hyperglycemia Diabetes mellitus jail insulin use: with jail use Diabetes mellitus type: type 2 Qualified Code(s): E11.65 - Type 2 diabetes mellitus with hyperglycemia; Z79.4 - custodial (current) use of insulin Plan: Continue metformin, Trulicity and Jardiance. Decrease Tresiba from 26 units to 22 units twice a day. A1c goal is equal or less than 7%. (2) Stroke: Comment: 2009 was left with left sided paralysis Code(s): I63.9 - Cerebral infarction, unspecified Plan: Keep blood pressure within goal. (3) Mild recurrent major depression: Code(s): F33.0 - Major depressive disorder, recurrent, mild Plan: Continue citalopram. (4) Hyperlipidemia LDL goal <70: Code(s): E78.5 - Hyperlipidemia, unspecified Plan: Continue statins. LDL goal is less than 70. (5) HTN (hypertension): Code(s): I10 - Essential (primary) hypertension Qualifiers: Hypertension type: primary hypertension Qualified Code(s): I10 - Esse ntial (primary) hypertension Plan: Continue amlodipine and enalapril. Blood pressure goal is equal or less than 130/80. Orders: Orders AMB Hemoglobin A1c Today E11.9 - Type 2 diabetes mellitus without complications Lipid Panel 4 Months E78.5 - Hyperlipidemia, unspecified Influenza [id number] Immunization Today Z23 - Encounter for immunization Microalbumin, Random (w Creat) 4 Months E11.9 - Type 2 diabetes mellitus without complications Vitamin D 25-OH Total 4 Months E55.9 - Vitamin D deficiency, unspecified Comprehensive [place]. Panel Fast 4 Months E11.65 - Type 2 diabetes mellitus with hyperglycemia, Z79.4 - assistant terminal manager (current) use of insulin Medications: New flash glucose sensor (FreeStyle Yusuf 14 Day Sensor kit) As directed 1 ea 11RF E11.65 - Type 2 diabetes mellitus with hyperglycemia, Z79.4 - custodial (current) use of insulin Changed From insulin degludec (Tresiba FlexTouch U-100 insulin) 26 units (0.26 mL) subcut BID 90 days 46.8 mL 1RF E11.65 - Type 2 diabetes mellitus with hyperglycemia, Z79.4 - custodial (current) use of insulin To insulin degludec (Tresiba FlexTouch U-100 insulin) 22 units (0.22 mL) subcut BID 90 days 39.6 mL 1RF E11.65 - Type 2 diabetes mellitus with hyperglycemia, Z79.4 - assistant terminal manager (current) use of insulin Refilled enalapril maleate 20 mg PO DAILY 90 days 90 tabs 0RF empagliflozin (Jardiance) 10 mg PO DAILY 90 days 90 tabs 1RF E11.65 - Type 2 diabetes mellitus with hyperglycemia, Z79.4 - custodial (current) use of insulin Coding Level of Care Code Est Pt Level 4 (34538) Diagnoses Type 2 diabetes mellitus with hyperglycemia, with long-term current use of insulin E11.65; Z79.4 Diabetes mellitus complication status: with hyperglycemia Diabetes mellitus jail insulin use: with long term care social worker use Diabetes mellitus type: type 2 Stroke I63.9 Mild recurrent major depression F33.0 Hyperlipidemia LDL goal <70 E78.5 Primary hypertension I10 Hypertension type: primary hypertension Time Spent (min) 24
== END 2023-08-06 16:12 | disposition home or self-care (01) ==
PROVIDERS: PCP Internal Medicine; Visit Provider Internal Medicine
DX: E11.65 Type 2 diabetes mellitus with hyperglycemia (principal); Z79.4 Long term (current) use of insulin; F33.0 Major depressive disorder, recurrent, mild; I69.354 Hemiplegia and hemiparesis following cerebral infarction affecting left non-dominant side; E78.5 Hyperlipidemia, unspecified; I10 Essential (primary) hypertension
CPT/HCPCS: 83036; 99214

== ENCOUNTER 2023-09-09 14:29 | Outpatient (AMB) | payer MEDICARE, SELFPAY ==
--- NOTE | 2023-09-09 14:36 | A.OFFVIS_ITS ---
Intake Intake Visit Reasons: H&P (targeted bx 09/22) Allergies No Known Allergies [No Known Allergies*] Allergy (Verified 09/22/23 07:11) HPI HPI Comments History of Present Illness Details Ruslan is a pleasant Kuwaiti-speaking male. He is seen for the following urologic conditions - prostate cancer - Lower urinary tract symptoms Kuwaiti translation in office performed a qualified medical technologist microbiology Telemedicine Evaluation 15 min Consultation [employer] [place] Video attempted MRI shows contained 1.2 cm lesion apical Combination therapy for prostate lower urinary tract symptoms Finasteride 5 mg with terazosin 10 mg Plan for targeted biopsy Prostate Cancer Grade Group 1, low volume initial management active surveillance 11/[address] Rodriguez November 2020 PSA diagnosis 6.6 04/23 - prostate MRI 1.2 cm left anterior apical PI-RADS 4, organ confined Initial therapy active surveillance with finasteride pT1c Prostate cancer pathology 12/20 Histologic type: Acinar adenocarcinoma Anderson score: Marc Grade 3 + 3 = 6 (Parts B and H) LBM 5%, RBM 5% Tumor quantitation: Number cores positive: 2, Total number of cores: 12 % of tissue involved: less than 5% (Part B); 5-10% (Part H) - LVI, PN negative PSA 04/21 3.1, 10/23 2.3, 03/22 1.6, 12/22 2.8 Lower urinary tract symptoms Combination therapy 12/20 - finasteride 5 mg daily, tamsulosin 0.4 mg daily Primary complaint nocturia x3 down from 5-6 GreenLight laser performed October 2021 Laboratory investigations include - 12/19 4.4, 07/21 4.5 - 10/22 6.6 PFSH Medical History Mild recurrent major depression Microalbuminuria Bicytopenia Colon polyps Migraines Dyslipidemia Stroke Abdominal hernia BPH w/o urinary obs/LUTS Altered bowel function Elevated PSA Stroke Depression Diabetes HTN (hypertension) Surgical History H/O umbilical hernia repair History of colonoscopy Family History Mother No problems noted. Father Enlarged prostate Social History (Reviewed 09/18/23 @ 13:38 by PRAVIN De La Paz Household Members: Spouse and Children Housing: Apartment Alcohol intake: former Patient Tobacco Use Status: Never used Tobacco e-Cigarette/Vaping Use: Never Used Second Hand Smoke Exposure: No service: No Current occupational status: unemployed Current occupational exposures/hazards: No Cognitive needs: Yes Hearing needs: No Vision needs: Yes Review of Systems Const All systems reviewed & are unremarkable except as noted in HPI and below Reports no additional complaints Resp Reports no additional complaints GI Reports no additional complaints Reports as per HPI Musc Reports no additional complaints Physical Exam Telemedicine evaluation Appropriate responses Regular breathing rate and rhythm HEENT Head: Yes normal to inspection Ears: hearing grossly normal bilaterally Eyes General: appearance normal, both eyes and all related structures Neck Neck: Yes normal visual inspection Chest Chest palpation & inspection: normal inspection of the chest Resp Effort & Inspection: normal respiratory effort and able to speak in complete sentences Assessment & Plan Assessment & Plan (1) Prostate cancer: Comment: Low volume, low-grade 2020 Code(s): C61 - Malignant neoplasm of prostate Plan Risks, benefits and alternatives to therapy were discussed. These include but are not limited to infection, bleeding, damage to local organs and tissues, need for further interventions. Anesthetic risks regarding cardiac arrhythmia, blood clots, and potential mortality were discussed. The patient understands the typical recovery time and the outpatient nature of the procedure. After consideration of these risks the patient gives full informed consent and they wish to move ahead with the procedure. Targetted prostate biopsy Patient Instructions: Imaging studies, laboratory and physical exam results were discussed and reviewed in detail. No major barriers to patient understanding were identified. An opportunity to ask questions regarding the treatment plan was provided. All questions were answered. The patient expressed understanding and agreement with the above treatment plan. The patient is aware they should contact our office by phone for worsening of their current condition or the appearance of new urologic symptoms. Compliance is encouraged with any medications and followup testing that is ordered. It is a privilege to participate in the urologic care of your patient. If you have any questions or concerns regarding treatment for the above conditions, or other urologic issues, please do not hesitate to contact me. The office telephone contact is [phone]. This note is constructed using voice recognition software. While every effort has been made to ensure accuracy manager talent acquisition errors may have been included. Yours sincerely, Dr Khurram Rodriguez MD, [facility] - Urology Providers of Expert, Compassionate Care for the Genitourinary System Telehealth Telehealth Location of provider rendering services: practice address Location of patient: address on file Patient Identification confirmed using: Name, : Yes Telehealth method: video Patient verbally consented to treatment: Yes Patient verbally consented to billing insurance company: Yes Patient informed of any privacy concerns related to visit: Yes Coding Level of Care Code Tele Est Pt Level 3 (92212) Diagnoses Prostate cancer C61
== END 2023-09-09 16:19 | disposition home or self-care (01) ==
LOC: HO.HUSH 14:29
PROVIDERS: PCP Internal Medicine; Visit Provider Urology
DX: C61 Malignant neoplasm of prostate (principal)
CPT/HCPCS: 99213

== ENCOUNTER → 2023-09-09 14:29 | Outpatient (BNVA) | payer MEDICARE, SELFPAY | PROVIDERS: PCP Internal Medicine; Visit Provider Urology ==

== ENCOUNTER 2023-09-10 10:49 | Outpatient (REF) | payer MEDICARE, SELFPAY ==
--- NOTE | 2023-09-10 11:00 | ECG_ITS ---
Test Reason : preop Blood Pressure : / mmHG Vent. Rate : 060 BPM Atrial Rate : 060 BPM P-R Int : 174 ms QRS Dur : 084 ms QT Int : 432 ms P-R-T Axes : 039 -07 049 degrees QTc Int : 432 ms Normal sinus rhythm Minimal voltage criteria for LVH, may be normal variant ( R in aVL ) Nonspecific ST and T wave abnormality Abnormal ECG When compared with ECG of 06-AUG-2020 11:25, QT has lengthened Referred By: Linnea Subramanian Electronically Signed By:NICOLE MORENO MD
[2023-09-10 12:46] LABS: Blood Urea Nitrogen 10 mg/dL (9-16); Estimated Glomerular Filt Rate > 60
== END 2023-09-10 10:50 | disposition home or self-care (01) ==
LOC: HO.LAB 10:49
PROVIDERS: PCP Internal Medicine; Referring Provider Internal Medicine; Visit Provider Urology
DX: Z01.811 Encounter for preprocedural respiratory examination (principal); C61 Malignant neoplasm of prostate
CPT/HCPCS: 36415; 82565; 84520; 93005

== ENCOUNTER → 2023-09-10 11:00 | Outpatient (BNV) | payer MEDICARE, SELFPAY | PROVIDERS: PCP Internal Medicine; Referring Provider Internal Medicine; Visit Provider Internal Medicine Cardiovascular Disease | DX: R94.31 Abnormal electrocardiogram [ECG] [EKG] (principal) | CPT/HCPCS: 93010 ==

== ENCOUNTER 2023-09-18 13:19 | Outpatient (AMB) | payer MEDICARE, SELFPAY ==
[2023-09-18 13:30] VITALS: BP 129/62; PULSE 63; BMI 33.2
--- NOTE | 2023-09-18 13:30 | MHC.OFFVIS ---
Vital Signs 09/18/23 13:30 Height 5 ft 3 in Weight 187 lb 6.287 oz BMI 33.2 BP 129/62 Blood Pressure Location Rt brachial Position Sitting Pulse 63 Intake Visit Reasons: 3 month follow up constipation Intake Note: Patient 3 month follow up for chronic constipation. CC: Patient states he continues to have constipation despite taking Linzess and Senna. Patient also reports having a lot of gas. Denies any new GI concerns today. Terminal Block Assembler Required: Yes Accompanied by: Spouse Allergies No Known Allergies [No Known Allergies*] Allergy (Verified 04/07/24 15:15) Medication List - Last Reconciled 09/18/23 by Lance Horan MD amlodipine 10 mg PO DAILY 90 days atorvastatin 80 mg PO BEDTIME 90 days cholecalciferol (vitamin D3) (Vitamin D3) 50 mcg PO DAILY 90 days citalopram 20 mg PO DAILY 90 days dorzolamide-timolol 22.3-6.8 mg/mL 1 drp ophthalmic (eye) BID dulaglutide (Trulicity) 0.75 mg (0.5 mL) subcut QWEEK 90 days empagliflozin (Jardiance) 10 mg PO DAILY 90 days enalapril maleate 20 mg PO DAILY 90 days finasteride 5 mg PO DAILY 90 days flash glucose sensor (FreeStyle Yusuf 14 Day Sensor kit) As directed insulin degludec (Tresiba FlexTouch U-100 insulin) 22 units (0.22 mL) subcut BID 90 days latanoprost 0.005% 1 drp ophthalmic (eye) DAILY metformin 500 mg PO BID 90 days metoprolol tartrate 50 mg PO BID 90 days pen needle, diabetic USE 2 TIMES DAILY pen needle, diabetic As directed potassium chloride ER 20 mEq (2 x 10 mEq) PO DAILY 3 days psyllium 1 tbsp PO DAILY 60 days simethicone (Gas Relief (simethicone)) 125 mg PO TID PRN 30 days terazosin 5 mg PO BEDTIME 90 days HPI HPI 3 month follow up constipation: Details: GI clinic visit for this 57 year old Telugu-speaking male for FU of lower abdominal pain, constipation and colon polyps IMAGING STUDIES:? 08/27/[address] SCAN:??No acute findings. ENDOSCOPIC STUDIES: 10/2021 COLONOSCOPY SHOWED: One diminutive appearing polyp was biopsied Moderate diverticulosis seen in the sigmoid colon Moderate hemorrhoids on antegrade exam. Plan:? I will send a letter with pathology results Repeat Colonoscopy interval based on path results - in 5 years if polyps are adenomatous and due to fair prep. 12/2014 colonoscopy was performed by Dr. Downs:Digital rectal exam revealed the prostate to be normal to digital palpation. The video colonoscope was introduced without difficulty. It was navigated into the rectosigmoid/sigmoid on up through the sigmoid, descending and transverse colon down into the cecal cap. Appendiceal orifice was well seen. The ileocecal valve was well seen. On slowly withdrawing the scope 2 diminutive polyps were removed excisionally at 35 cm. (These had more of a hyperplastic appearance endoscopically). The scope continued to be withdrawn. The anorectal verge was clear. Polyps were hyperplastic on bx TODAY'S VISIT: CC: Patient states he continues to have constipation despite taking Linzess and Senna. Denies any new GI concerns today. Telephone make up girl, Pt is accompanied by his CLINICAL PROJECT COORDINATOR. Continues to have constipation - can take upto a week for him to have a BM. PAST VISIT: Pt complains intermittent diarrhea Notes constipation sometimes - has constipation x 3 days in a week and diarrhea two days a week. Pt denies abdominal pain. Constipation is getting better. When I eat red meat, I get diarrhea Has a BM twice a week with intermittent straining and hard stools. Sometimes he notes abdominal pain - every day when he wakes up in the morning. Notes pain when he gets up from a sitting position When I get up or when I sit I feel the pain Has a BM twice a week. Taking Senna every other day - and it gives him diarrhea. Pt complains of intermittent lower abdominal pain for the past 6 months. Pain is 5/10 in intensity and states pain in the joints. Has the pain every day when he gets up from the bed or the chair and hurts when he sits and walks. Pain is not related to food intake. Denies change in pain after a BM. Denies pain in the back. Patient denies symptoms of abdominal pain, heartburn, dysphagia, nausea, vomiting, change in appetite or weight.? Has a BM twice a week - chronic constipation for the past several yrs. Denies recent diarrhea, black stools or rectal bleeding. Patient denies major cardiac or pulmonary problems, loud snoring or sleep apnea Had nausea and vomiting after anesthesia in the past. Denies being on chronic anticoagulation. Patient denies known family history of colon polyps, or other GI malignancies. Dad had colon cancer at age not known to?the patient [facility] Medical History Mild recurrent major depression Microalbuminuria Bicytopenia Colon polyps Migraines Dyslipidemia Stroke Abdominal hernia BPH w/o urinary obs/LUTS Altered bowel function Elevated PSA Stroke Depression Diabetes HTN (hypertension) Surgical History H/O umbilical hernia repair History of colonoscopy Family History Mother No problems noted. Father Enlarged prostate Social History Household Members: Spouse and Children Housing: Apartment Alcohol intake: former Patient Tobacco Use Status: Never used Tobacco e-Cigarette/Vaping Use: Never Used Second Hand Smoke Exposure: No service: No Current occupational status: unemployed Current occupational exposures/hazards: No Cognitive needs: Yes Hearing needs: No Vision needs: Yes Review of Systems Const All systems reviewed & are unremarkable except as noted in HPI and below Physical Exam Vital Signs: Last Vital Signs Pulse 63 09/18/23 13:30 BP 129/62 09/18/23 13:30 BMI result Body Mass Index 33.2 Const General: healthy appearing and no acute distress Nutritional Appearance: obese Orientation/consciousness: patient oriented x3 Limitations: language barrier HEENT Head: Yes normal to inspection Ears: hearing grossly normal bilaterally Eyes Sclerae: sclerae normal Pupils: Equal, round and reactive pupils present Neck Neck: Yes normal visual inspection Chest Chest palpation & inspection: normal inspection of the chest Resp Effort & Inspection: normal respiratory effort Auscultation: clear to auscultation bilaterally Cardio Palpation: normal PMI Rate: regular rate Rhythm: regular rhythm Heart sounds: S1 normal heart sound present, S2 normal heart sound present and no murmurs GI Palpation (GI): Soft to palpation, nontender and No hepatosplenomegaly present Auscultation: normal bowel sounds Rectal Exam - Male: Yes deferred Skin General skin exam: no rashes or lesions noted Neuro General: patient oriented x3, gait normal and moves all extremities Cranial nerves: Yes Equal, round and reactive pupils present Psych Appearance: grossly normal Mental Status: mental status grossly normal Assessment & Plan Assessment & Plan (1) Chronic left lower quadrant pain: Code(s): R10.32 - Left lower quadrant pain; G89.29 - Other chronic pain Category: Medical (2) Family history of colon cancer: Code(s): Z80.0 - Family history of malignant neoplasm of digestive organs Category: Medical (3) Colon cancer screening: Comment: 10/2021 COLONOSCOPY SHOWED: One hyperplastic polyp was biopsied Moderate diverticulosis seen in the sigmoid colon Moderate hemorrhoids on antegrade exam. Plan: Repeat Colonoscopy interval based on path results - in 5 years if polyps are adenomatous and due to fair prep. Code(s): Z12.11 - Encounter for screening for malignant neoplasm of colon Category: Medical (4) Chronic constipation: Code(s): K59.09 - Other constipation Category: Medical Plan 57 YM with DM, Htn, hx of CVA referred by Dr Martinez to schedule his FU colonoscopy Patient has a family history of colon cancer in his dad. Two hyperplastic polyps were removed during last colonoscopy in 2014.? 10/2021 colonoscopy was performed and results as noted above. FU colon is advised in 5 yrs (he will be due for repeat colon in 2026. Patient was advised to continue senna for chronic constipation. Abd CT scan was negative. Patient was advised to start linaclotide 145 mcg daily for constipation (since he notes diarrhea with Senna). Lower abdominal pain appears to be musculoskeletal in etiology (not of GI origin) since pt notes transient pain when he sits up and pain resolves spontaneously after a few minutes 06/12/23 Pt advised to take a fibre supplement for diarrhea alternating with constipation 09/18/23 Pt advised to start taking Amitiza 8 mcg twice a day FU in 6 weeks (FU of constipation) Medications: New lubiprostone (Amitiza) 8 mcg PO BID 60 caps 3RF 30 days K59.09 - Other constipation Coding Level of Care Code Est Pt Level 4 (08308) Diagnoses Chronic left lower quadrant pain R10.32; G89.29 Family history of colon cancer Z80.0 Colon cancer screening Z12.11 Chronic constipation K59.09 Time Spent (min) 21
== END 2023-09-18 14:11 | disposition home or self-care (01) ==
PROVIDERS: PCP Internal Medicine; Visit Provider Internal Medicine Gastroenterology
DX: R10.32 Left lower quadrant pain (principal); G89.29 Other chronic pain; Z80.0 Family history of malignant neoplasm of digestive organs; Z12.11 Encounter for screening for malignant neoplasm of colon; K59.09 Other constipation
CPT/HCPCS: 99499

== ENCOUNTER → 2023-09-18 13:19 | Outpatient (BNVA) | payer MEDICARE, SELFPAY | PROVIDERS: PCP Internal Medicine; Visit Provider Internal Medicine Gastroenterology ==

== ENCOUNTER 2023-09-22 06:15 | Day surgery (SDC) | payer MEDICARE, SELFPAY ==
--- NOTE | 2023-09-19 10:33 | HO.ANESPROP2 ---
Documented by User: Bella Rdz NP 09/19/23 10:45 HPI - Anesthesia Eval Consult details Narrative: 57yo M for Targeted Prostate Needle Biopsy s/p Laser Ablation Prostate w/Green Light 2021 with GA-ETT (started with LMA but repeated laryngospasm - record on chart. Preop albuterol) L side weakness d/t stroke 2008 Anesthesia Pre-Procedure Meds Is the patient on any of the following meds?: Dulaglutide (Trulicity) PMFSH Active Problems Active Problems: All Active Problems (Updated 09/08/23 @ 14:20 by Linnea Subramanian MD) Pre-op chest exam (Acute) Chronic left lower quadrant pain (Acute) Hyperlipidemia LDL goal <70 (Acute) Mild recurrent major depression (Acute) Family history of colon cancer (Acute) Colon cancer screening (Acute) Chronic constipation (Acute) Microalbuminuria (Acute) Bicytopenia (Acute) Colon polyps (Acute) Migraines (Acute) Fracture of left ankle, lateral malleolus (Acute) Lateral malleolar fracture (Acute) Ankle pain (Acute) Prostate cancer (Acute) Nocturia associated with benign prostatic hyperplasia (Acute) Closed high lateral malleolus fracture (Acute) Ankle pain (Acute) Elevated PSA (Acute) Depression (Acute) Diabetes (Acute) HTN (hypertension) (Acute) Stroke (Acute) COVID-19 (Acute) Past Medical History Medical History Mild recurrent major depression Microalbuminuria Bicytopenia Colon polyps Migraines Dyslipidemia Stroke Abdominal hernia BPH w/o urinary obs/LUTS Altered bowel function Elevated PSA Stroke Depression Diabetes HTN (hypertension) Family History Family History Mother No problems noted. Father Enlarged prostate Family history of problems with anesthesia: No Surgical History Surgical History H/O umbilical hernia repair History of colonoscopy History of Problems with Anesthesia: No Social History Social History Household Members: Spouse and Children Housing: Apartment Alcohol intake: former Patient Tobacco Use Status: Never used Tobacco e-Cigarette/Vaping Use: Never Used Second Hand Smoke Exposure: No Are you DNR?: No Advance Directives: No Advance Directives Information Provided: Yes Nutrition Risks: No Nutritional Risk service: No Current occupational status: unemployed Current occupational exposures/hazards: No Cognitive needs: Yes Hearing needs: No Vision needs: Yes Meds Allergies Allergy/AdvReac Type Severity Reaction Status Date / Time No Known Allergies Allergy Verified 09/22/23 07:11 [No Known Allergies*] Home Medications Medication Instructions Recorded Confirmed Last Taken Type pen needle, diabetic 31 gauge x #50 ea 09/12/20 09/18/23 Unknown History 11/14 latanoprost 0.005 % eye drops 1 drp ophthalmic (eye) DAILY 11/28/20 09/18/23 Unknown History Exam Pertinent Lab Results Pertinent Lab Results: Laboratory Tests 10/22/22 08/04/23 08/04/23 09:10 09:05 09:05 WBC 4.2 L Hgb 13.9 L Hct 41.3 L Plt Count 176 Sodium 142 Potassium Chloride 106 Carbon Dioxide 32 H BUN Creatinine 08/04/23 09/10/23 09:05 11:26 WBC Hgb Hct Plt Count Sodium Potassium 3.2 L Chloride Carbon Dioxide BUN 10 Creatinine 0.83 Narrative Narrative: EKG 08/2024 Vent. Rate : 060 BPM Atrial Rate : 060 BPM P-R Int : 174 ms QRS Dur : 084 ms QT Int : 432 ms P-R-T Axes : 039 -07 049 degrees QTc Int : 432 ms Normal sinus rhythm Minimal voltage criteria for LVH, may be normal variant ( R in aVL ) Nonspecific ST and T wave abnormality Abnormal ECG When compared with ECG of 06-AUG-2020 11:25, QT has lengthened Assessment and Plan Assessment Anesthesia Assessment: Chart Reviewed Final Anesthetic Review Family History of Problems with Anesthesia: No History of Problems with Anesthesia: No Documented by User: Rommel Inman MD 09/22/23 07:46 HPI - Anesthesia Eval Anesthesia Pre-Procedure Meds If Yes to any meds - educate patient: Pt education - increased risk of aspiration PMFSH Past Medical History Medical History Mild recurrent major depression Microalbuminuria Bicytopenia Colon polyps Migraines Dyslipidemia Stroke Abdominal hernia BPH w/o urinary obs/LUTS Altered bowel function Elevated PSA Stroke Depression Diabetes HTN (hypertension) Family History Family History Mother No problems noted. Father Enlarged prostate Surgical History Surgical History H/O umbilical hernia repair History of colonoscopy Social History Social History Household Members: Spouse and Children Housing: Apartment Alcohol intake: former Patient Tobacco Use Status: Never used Tobacco e-Cigarette/Vaping Use: Never Used Second Hand Smoke Exposure: No Are you DNR?: No Advance Directives: No Advance Directives Information Provided: Yes Nutrition Risks: No Nutritional Risk service: No Current occupational status: unemployed Current occupational exposures/hazards: No Cognitive needs: Yes Hearing needs: No Vision needs: Yes Meds Allergies Allergy/AdvReac Type Severity Reaction Status Date / Time No Known Allergies Allergy Verified 09/22/23 07:11 [No Known Allergies*] Home Medications Medication Instructions Recorded Confirmed Last Taken Type pen needle, diabetic 31 gauge x #50 ea 09/12/20 09/18/23 Unknown History 11/14 latanoprost 0.005 % eye drops 1 drp ophthalmic (eye) DAILY 11/28/20 09/18/23 Unknown History Exam Airway Mallampati Class: II TM Dist: <=3cm Neck ROM: Full Partial: Upper and Lower Heart: ok Lungs: ok Assessment and Plan Assessment Anesthesia Assessment: Anesthesia Plan Discussed Final Anesthetic Review NPO: Yes ASA Class: III Final Preanesthetic Review: No Changes in Pt Med Stat, Meds/Allgs Chart Reviewed, Consent Obtained/Reviewed and Anes Risks/Benef Reviewed Patient Risk: Intermediate Procedure Risk: Low Anesthetic Plan Anesthetic Plan: GA and Agree w/ Assess. and Plan Disposition: Standard PACU
[2023-09-22] VITALS (8 sets, daily range): BP systolic 103–139; BP diastolic 51–74; PULSE 52–58; RESP 12–18; TEMP 36.1–36.6; O2SAT 89–97; BMI 33.4
[2023-09-22] MEDS: Albuterol Sulfate (0.083%) 2.5 MG/3 ML VIAL.NEB INHALE (06:28)
[2023-09-22 06:46] LABS: Glucose, Whole Blood 105 mg/dL (60-115)
[2023-09-22] MEDS: Lactated Ringers 1,000 ML 100 ML IVCONT (06:55)
[2023-09-22] MEDS: levoFLOXacin 500 MG TABLET PO (07:31)
--- NOTE | 2023-09-22 08:04 | MHC.SHP ---
Pre-Procedural Eval Section A Date of Service: 09/22/23 The patient is an INPATIENT: No Changes since office visit: No Cold of Flu in the past 2 weeks, No New Medical Problems, No Changes in Medication and No Patient answered all questions The History & Physical has been completed within 30 days and I have reviewed it.: Yes Section B Chief Complaint: Elevated prostate specific antigen [PSA] Allergies: Allergies Allergy/AdvReac Type Severity Reaction Status Date / Time No Known Allergies Allergy Verified 09/22/23 07:11 [No Known Allergies*] Review of Systems Sugical H&P ROS: Negative: Constitution, Cardiovascular, Respiratory, Neurological, Psychiatric, Hem-Onc, Allergic/Immunologic, Gastrointestinal, Genitourinary, Musculoskeletal, Integumentary, Endocrine and Eyes/Ears/Nose/Throat Exam Surgical H&P Exam: Normal: HEENT, Normal: Heart, Normal: Lungs, Normal: Extremities, Normal: Abdomen, Normal: Skin and Normal: Neurological Plan Diagnosis/Plan: Unchanged (US/guided biopsy) I have reviewed the history and physical and performed a pertinent physical examination on my patient. No changes have occurred unless specified. Time Spent With Patient Time: Total time managing care of this patient today ____ minutes.
--- NOTE | 2023-09-22 09:11 | P.OP_ITS ---
Operative Note Operative Note Date of Service: 09/22/23 Narrative: Preoperative diagnosis: Prostate Cancer Postoperative diagnosis: Prostate Cancer Procedure: 1. transrectal ultrasound-guided pudendal nerve block 2. MRI-US fusion image registration performed 3. transperineal ultrasound-guided prostate biopsy 13 core including targets Surgeon: Dr. Khurram Rodriguez Anesthetic: Sedation plus local Indications for procedure: Prostate Cancer Procedure: After informed consent was verified, the patient was brought into the procedure area. Patient identity confirmed. Perioperative antibiotics confirmed. Safety pause time out performed. Anesthesia performed per protocol. Scrotum taped out of operative area. Iodine prep used. Perineal injection of local anesthetic. Digital guided prostate pudendal nerve block performed with 10 cc of 1% lidocaine. 5cc each side. Combination 10cc iodine with 50cc gel was mixed and placed in the rectum. Ultrasound probe was placed per rectum. Ultrasound probe stabilized on a prostate stepper with attached grid. [employer] software and hardware platform used. Ultrasound placement was made with external grid calibration for height and prostate diameter in both the transverse and longitudinal planes. Grid A-C covering right prostate and c-F covering left prostate. Numbers 1.0-2.5 covering posterior prostate and 2.5-4.0 covering anterior prostate. Once grid calibration was confirmed prostate ultrasound data acquisition was performed in the transverse fashion. Three dimensional ultrasound model was created using [employer] software. The planned needle targeting, based on prior acquisition of MRI imaging, was overlaid on the ultrasound images and targets confirmed through ultrasound review. Adjustments were made between real time and projected model targeting locations. Based on pre-planning evaluation 13 targets had been identified. These included 3 targets of the PI-RADS 4 prostate left mid PZ identified lesion/s. He tolerated the procedure well. Was transferred to stable condition in the PACU. Printed instructions regarding antibiotic use and common side effects such as low-grade temperature, potential infection and bleeding were given Pathology: 13 core prostate biopsy CPT 32272 Modifier 22 for complexity of planning and procedure execution
[2023-09-22] MEDS: ondansetron HCL 4 MG/2 ML VIAL IVPUSH (09:53)
== END 2023-09-22 10:27 | disposition home or self-care (01) ==
PROVIDERS: PCP Internal Medicine; Visit Provider Urology
PROC: (CPT 55700; principal; 2023-09-22 07:30)
DX: C61 Malignant neoplasm of prostate (principal); R97.20 Elevated prostate specific antigen [PSA]; E11.9 Type 2 diabetes mellitus without complications; I10 Essential (primary) hypertension; E78.5 Hyperlipidemia, unspecified; Z86.73 Personal history of transient ischemic attack (TIA), and cerebral infarction without residual deficits; Z79.84 Long term (current) use of oral hypoglycemic drugs; Z79.4 Long term (current) use of insulin; Z79.02 Long term (current) use of antithrombotics/antiplatelets; Z79.899 Other long term (current) drug therapy
CPT/HCPCS: 55706; 82947; 88305; 88344; 94640; J2405; J2704; J3010

== ENCOUNTER → 2023-09-22 06:15 | Outpatient (BNV) | payer MEDICARE, SELFPAY | PROVIDERS: PCP Internal Medicine; Visit Provider Urology | DX: R97.20 Elevated prostate specific antigen [PSA] (principal) | CPT/HCPCS: 55700; 76942 ==

== ENCOUNTER 2023-10-07 15:26 | Outpatient (AMB) | payer MEDICARE, SELFPAY ==
--- NOTE | 2023-10-07 15:28 | MHC.OFFVIS ---
Intake Intake Visit Reasons: bx results Intake Note: Patient Is Present for Post Op Follow up Results Procedure Done: Prostate Biopsy 09/22/2023 Urology Med: Finasteride, Terazosin Antibiotic Allergy: None Blood Thinner: None Allergies No Known Allergies [No Known Allergies*] Allergy (Verified 10/07/23 15:29) Medication List - Last Reconciled 10/07/23 by Khurram Rodriguez MD amlodipine 10 mg PO DAILY 90 days atorvastatin 80 mg PO BEDTIME 90 days cholecalciferol (vitamin D3) (Vitamin D3) 50 mcg PO DAILY 90 days citalopram 20 mg PO DAILY 90 days dorzolamide-timolol 22.3-6.8 mg/mL 1 drp ophthalmic (eye) BID dulaglutide (Trulicity) 0.75 mg (0.5 mL) subcut QWEEK 90 days empagliflozin (Jardiance) 10 mg PO DAILY 90 days enalapril maleate 20 mg PO DAILY 90 days finasteride 5 mg PO DAILY 90 days flash glucose sensor ([employer] 14 Day Sensor kit) As directed insulin degludec (Tresiba FlexTouch U-100 insulin) 22 units (0.22 mL) subcut BID 90 days latanoprost 0.005% 1 drp ophthalmic (eye) DAILY lubiprostone (Amitiza) 8 mcg PO BID 30 days metformin 500 mg PO BID 90 days metoprolol tartrate 50 mg PO BID 90 days pen needle, diabetic USE 2 TIMES DAILY pen needle, diabetic As directed potassium chloride ER 20 mEq (2 x 10 mEq) PO DAILY 3 days psyllium 1 tbsp PO DAILY 60 days simethicone (Gas Relief (simethicone)) 125 mg PO TID PRN 30 days terazosin 5 mg PO BEDTIME 90 days HPI HPI Comments History of Present Illness Details Ruslan is a pleasant Dominican-speaking male. He is seen for the following urologic conditions - prostate cancer - Lower urinary tract symptoms Dominican translation in office performed a qualified medical laboratory scientist Telemedicine Evaluation 15 min Consultation [employer] [place] Video attempted Ultrasound prostate MRI targeted all cores negative Combination therapy for prostate lower urinary tract symptoms Finasteride 5 mg with terazosin 10 mg Six-month follow-up PSA Prostate Cancer Grade Group 1, low volume initial management active surveillance 11/[address] Rodriguez November 2020 PSA diagnosis 6.6 09/23 ultrasound fusion prostate biopsy targeted all cores negative 04/23 - prostate MRI 1.2 cm left anterior apical PI-RADS 4, organ confined Initial therapy active surveillance with finasteride pT1c Prostate cancer pathology 12/20 Histologic type: Acinar adenocarcinoma Marc score: Marc Grade 3 + 3 = 6 (Parts B and H) LBM 5%, RBM 5% Tumor quantitation: Number cores positive: 2, Total number of cores: 12 % of tissue involved: less than 5% (Part B); 5-10% (Part H) - LVI, PN negative PSA 04/21 3.1, 10/23 2.3, 03/22 1.6, 12/22 2.8 Lower urinary tract symptoms Combination therapy 12/20 - finasteride 5 mg daily, tamsulosin 0.4 mg daily Primary complaint nocturia x3 down from 5-6 GreenLight laser performed October 2021 Laboratory investigations include - 12/19 4.4, 07/21 4.5 - 10/22 6.6 PFSH Medical History Mild recurrent major depression Microalbuminuria Bicytopenia Colon polyps Migraines Dyslipidemia Stroke Abdominal hernia BPH w/o urinary obs/LUTS Altered bowel function Elevated PSA Stroke Depression Diabetes HTN (hypertension) Surgical History H/O umbilical hernia repair History of colonoscopy Family History Mother No problems noted. Father Enlarged prostate Social History Household Members: Spouse and Children Housing: Apartment Alcohol intake: former Patient Tobacco Use Status: Never used Tobacco e-Cigarette/Vaping Use: Never Used Second Hand Smoke Exposure: No service: No Current occupational status: unemployed Current occupational exposures/hazards: No Cognitive needs: Yes Hearing needs: No Vision needs: Yes Review of Systems Const All systems reviewed & are unremarkable except as noted in HPI and below Reports no additional complaints Resp Reports no additional complaints GI Reports no additional complaints Reports as per HPI Musc Reports no additional complaints Physical Exam Telemedicine evaluation Appropriate responses Regular breathing rate and rhythm HEENT Head: Yes normal to inspection Ears: hearing grossly normal bilaterally Eyes General: appearance normal, both eyes and all related structures Neck Neck: Yes normal visual inspection Chest Chest palpation & inspection: normal inspection of the chest Resp Effort & Inspection: normal respiratory effort and able to speak in complete sentences Assessment & Plan Assessment & Plan (1) Prostate cancer: Comment: Low volume, low-grade 2020 Code(s): C61 - Malignant neoplasm of prostate Plan Six-month follow-up PSA Orders: Orders Prostate Specific Antigen 6 Months C61 - Malignant neoplasm of prostate Medications: Refilled finasteride 5 mg PO DAILY 90 tabs 1RF 90 days C61 - Malignant neoplasm of prostate terazosin 5 mg PO BEDTIME 90 caps 1RF 90 days Patient Instructions: Imaging studies, laboratory and physical exam results were discussed and reviewed in detail. No major barriers to patient understanding were identified. An opportunity to ask questions regarding the treatment plan was provided. All questions were answered. The patient expressed understanding and agreement with the above treatment plan. The patient is aware they should contact our office by phone for worsening of their current condition or the appearance of new urologic symptoms. Compliance is encouraged with any medications and followup testing that is ordered. It is a privilege to participate in the urologic care of your patient. If you have any questions or concerns regarding treatment for the above conditions, or other urologic issues, please do not hesitate to contact me. The office telephone contact is [phone]. This note is constructed using voice recognition software. While every effort has been made to ensure accuracy bean snapper errors may have been included. Yours sincerely, Dr Khurram Rodriguez MD, [facility] - Urology Providers of Expert, Compassionate Care for the Genitourinary System Telehealth Telehealth Location of provider rendering services: practice address Location of patient: address on file Patient Identification confirmed using: Name, : Yes Telehealth method: video Patient verbally consented to treatment: Yes Patient verbally consented to billing insurance company: Yes Patient informed of any privacy concerns related to visit: Yes Coding Level of Care Code Tele Est Pt Level 4 (58277) Diagnoses Prostate cancer C61
== END 2023-10-07 15:52 | disposition home or self-care (01) ==
LOC: HO.HUSH 15:26
PROVIDERS: PCP Internal Medicine; Visit Provider Urology
DX: C61 Malignant neoplasm of prostate (principal)
CPT/HCPCS: 99214

== ENCOUNTER → 2023-10-07 15:26 | Outpatient (BNVA) | payer MEDICARE, SELFPAY | PROVIDERS: PCP Internal Medicine; Visit Provider Urology ==

== ENCOUNTER 2023-10-30 12:57 | Outpatient (AMB) | payer MEDICARE, SELFPAY ==
--- NOTE | 2023-10-30 13:09 | MHC.OFFVIS ---
Intake Vital Signs 10/30/23 13:10 Height 5 ft 3 in Weight 185 lb BMI 32.8 BP 127/66 Blood Pressure Location Lt brachial Position Sitting Pulse 65 Intake Visit Reasons: 6 week follow up Intake Note: Patient follow up for Chronic Constipation Patient denies any GI issues. Bailer Tenders Supervisor Required: Yes Bailer Tenders Supervisor Name: Video Interpeter Accompanied by: Spouse Allergies No Known Allergies [No Known Allergies*] Allergy (Verified 10/30/23 13:09) Medication List - Last Reconciled 10/30/23 by Lance Horan MD amlodipine 10 mg PO DAILY 90 days atorvastatin 80 mg PO BEDTIME 90 days cholecalciferol (vitamin D3) (Vitamin D3) 50 mcg PO DAILY 90 days citalopram 20 mg PO DAILY 90 days dorzolamide-timolol 22.3-6.8 mg/mL 1 drp ophthalmic (eye) BID dulaglutide (Trulicity) 0.75 mg (0.5 mL) subcut QWEEK 90 days empagliflozin (Jardiance) 10 mg PO DAILY 90 days enalapril maleate 20 mg PO DAILY 90 days finasteride 5 mg PO DAILY 90 days flash glucose sensor (FreeStyle Yusuf 14 Day Sensor kit) As directed insulin degludec (Tresiba FlexTouch U-100 insulin) 22 units (0.22 mL) subcut BID 90 days latanoprost 0.005% 1 drp ophthalmic (eye) DAILY lubiprostone (Amitiza) 8 mcg PO BID 30 days metformin 500 mg PO BID 90 days metoprolol tartrate 50 mg PO BID 90 days pen needle, diabetic USE 2 TIMES DAILY pen needle, diabetic As directed potassium chloride ER 20 mEq (2 x 10 mEq) PO DAILY 3 days psyllium 1 tbsp PO DAILY 60 days simethicone (Gas Relief (simethicone)) 125 mg PO TID PRN 30 days terazosin 5 mg PO BEDTIME 90 days HPI 6 week follow up HPI Details GI clinic visit for this 58 year old Vietnamese-speaking male for FU of lower abdominal pain, constipation and colon polyps IMAGING STUDIES:? 08/27/[address] SCAN:??No acute findings. ENDOSCOPIC STUDIES: 10/2021 COLONOSCOPY SHOWED: One diminutive appearing polyp was biopsied Moderate diverticulosis seen in the sigmoid colon Moderate hemorrhoids on antegrade exam. Plan:? I will send a letter with pathology results Repeat Colonoscopy interval based on path results - in 5 years if polyps are adenomatous and due to fair prep. 12/2014 colonoscopy was performed by Dr. Downs: Digital rectal exam revealed the prostate to be normal to digital palpation. The video colonoscope was introduced without difficulty. It was navigated into the rectosigmoid/sigmoid on up through the sigmoid, descending and transverse colon down into the cecal cap. Appendiceal orifice was well seen. The ileocecal valve was well seen. On slowly withdrawing the scope 2 diminutive polyps were removed excisionally at 35 cm. (These had more of a hyperplastic appearance endoscopically). The scope continued to be withdrawn. The anorectal verge was clear. 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 Notes improvement in constipation. Has a normal BM every 3 days (instead of once a week) Denies hard stools - intermittent straining. PAST VISIT: CC: Patient states he continues to have constipation despite taking Linzess and Senna. Denies any new GI concerns today. Continues to have constipation - can take upto a week for him to have a BM. Pt complains intermittent diarrhea Notes constipation sometimes - has constipation x 3 days in a week and diarrhea two days a week. Pt denies abdominal pain. Constipation is getting better. When I eat red meat, I get diarrhea Has a BM twice a week with intermittent straining and hard stools. Sometimes he notes abdominal pain - every day when he wakes up in the morning. Notes pain when he gets up from a sitting position When I get up or when I sit I feel the pain Has a BM twice a week. Taking Senna every other day - and it gives him diarrhea. Pt complains of intermittent lower abdominal pain for the past 6 months. Pain is 5/10 in intensity and states pain in the joints. Has the pain every day when he gets up from the bed or the chair and hurts when he sits and walks. Pain is not related to food intake. Denies change in pain after a BM. Denies pain in the back. Patient denies symptoms of abdominal pain, heartburn, dysphagia, nausea, vomiting, change in appetite or weight.? Has a BM twice a week - chronic constipation for the past several yrs. Denies recent diarrhea, black stools or rectal bleeding. Patient denies major cardiac or pulmonary problems, loud snoring or sleep apnea Had nausea and vomiting after anesthesia in the past. Denies being on chronic anticoagulation. Patient denies known family history of colon polyps, or other GI malignancies. Dad had colon cancer at age not known to?the patient [facility]LY [facility], [facility] Medical History Mild recurrent major depression Microalbuminuria Bicytopenia Colon polyps Migraines Dyslipidemia Stroke Abdominal hernia BPH w/o urinary obs/LUTS Altered bowel function Elevated PSA Stroke Depression Diabetes HTN (hypertension) Surgical History H/O umbilical hernia repair History of colonoscopy Family History Mother No problems noted. Father Enlarged prostate Social History Household Members: Spouse and Children Housing: Apartment Alcohol intake: former Patient Tobacco Use Status: Never used Tobacco e-Cigarette/Vaping Use: Never Used Second Hand Smoke Exposure: No service: No Current occupational status: unemployed Current occupational exposures/hazards: No Cognitive needs: Yes Hearing needs: No Vision needs: Yes Review of Systems Const All systems reviewed & are unremarkable except as noted in HPI and below Physical Exam Vital Signs: Last Vital Signs Pulse 65 10/30/23 13:10 BP 127/66 10/30/23 13:10 BMI result Body Mass Index 32.8 Const General: healthy appearing and no acute distress Nutritional Appearance: obese Orientation/consciousness: patient oriented x3 Limitations: language barrier HEENT Head: Yes normal to inspection Ears: hearing grossly normal bilaterally Eyes Sclerae: sclerae normal Pupils: Equal, round and reactive pupils present Neck Neck: Yes normal visual inspection Chest Chest palpation & inspection: normal inspection of the chest Resp Effort & Inspection: normal respiratory effort Auscultation: clear to auscultation bilaterally Cardio Palpation: normal PMI Rate: regular rate Rhythm: regular rhythm Heart sounds: S1 normal heart sound present, S2 normal heart sound present and no murmurs GI Palpation (GI): Soft to palpation, nontender and No hepatosplenomegaly present Auscultation: normal bowel sounds Rectal Exam - Male: Yes deferred Skin General skin exam: no rashes or lesions noted Neuro General: patient oriented x3, gait normal and moves all extremities Cranial nerves: Yes Equal, round and reactive pupils present Psych Appearance: grossly normal Mental Status: mental status grossly normal Assessment & Plan Assessment & Plan (1) Chronic left lower quadrant pain: Code(s): R10.32 - Left lower quadrant pain; G89.29 - Other chronic pain (2) Family history of colon cancer: Code(s): Z80.0 - Family history of malignant neoplasm of digestive organs (3) Colon cancer screening: Comment: 10/2021 COLONOSCOPY SHOWED: One hyperplastic polyp was biopsied Moderate diverticulosis seen in the sigmoid colon Moderate hemorrhoids on antegrade exam. Plan: Repeat Colonoscopy interval based on path results - in 5 years if polyps are adenomatous and due to fair prep. Code(s): Z12.11 - Encounter for screening for malignant neoplasm of colon (4) Chronic constipation: Code(s): K59.09 - Other constipation Plan 58 YM with DM, Htn, hx of CVA referred by Dr Martinez to schedule his FU colonoscopy Patient has a family history of colon cancer in his dad. Two hyperplastic polyps were removed during last colonoscopy in 2014.? 10/2021 colonoscopy was performed and results as noted above. FU colon is advised in 5 yrs (he will be due for repeat colon in 2026. Patient was advised to continue senna for chronic constipation. Abd CT scan was negative. Patient was advised to start linaclotide 145 mcg daily for constipation (since he notes diarrhea with Senna). Lower abdominal pain appears to be musculoskeletal in etiology (not of GI origin) since pt notes transient pain when he sits up and pain resolves spontaneously after a few minutes 06/12/23 Pt advised to take a fibre supplement for diarrhea alternating with constipation 10/30/23 Notes improvement in constipation since he started taking Lubiprostone 8 mcg twice a day . Has a normal BM every 3 days (instead of once a week) Denies hard stools - intermittent straining. FU in 4 months Coding Level of Care Code Est Pt Level 3 (18555) Diagnoses Chronic left lower quadrant pain R10.32; G89.29 Family history of colon cancer Z80.0 Colon cancer screening Z12.11 Chronic constipation K59.09 Time Spent (min) 15
[2023-10-30 13:10] VITALS: BP 127/66; PULSE 65; BMI 32.8
== END 2023-10-30 13:35 | disposition home or self-care (01) ==
PROVIDERS: PCP Internal Medicine; Visit Provider Internal Medicine Gastroenterology
DX: R10.32 Left lower quadrant pain (principal); G89.29 Other chronic pain; Z80.0 Family history of malignant neoplasm of digestive organs; Z12.11 Encounter for screening for malignant neoplasm of colon; K59.09 Other constipation
CPT/HCPCS: 99213

== ENCOUNTER → 2023-10-30 12:57 | Outpatient (BNVA) | payer MEDICARE, SELFPAY | PROVIDERS: PCP Internal Medicine; Visit Provider Internal Medicine Gastroenterology | DX: Z12.11 Encounter for screening for malignant neoplasm of colon (principal); K59.09 Other constipation; R10.32 Left lower quadrant pain; G89.29 Other chronic pain; Z80.0 Family history of malignant neoplasm of digestive organs | CPT/HCPCS: 99212 ==

== ENCOUNTER 2023-12-04 09:09 | Outpatient (REF) | payer MEDICARE, SELFPAY ==
[2023-12-04 11:17] LABS: Alanine Aminotransferase 26 U/L (0-40); Alkaline Phosphatase 46 U/L (39-117); Anion Gap 9 (12-20); Aspartate Amino Transferase 16 U/L (5-37); Bilirubin Total 0.9 mg/dL (0.0-1.0); Blood Urea Nitrogen 11 mg/dL (9-16); Calcium 9.5 mg/dL (8.4-10.2); Carbon Dioxide 32 mmol/L (22-29); Chloride 104 mmol/L (96-108); Cholesterol 119 mg/dL (<200); Estimated Glomerular Filt Rate > 60; Glucose Fasting 99 mg/dL (60-99); HDL Cholesterol 40 mg/dL (>40); LDL Cholesterol Calculated 64 mg/dL (<100); Potassium 3.4 mmol/L (3.3-5.1); Sodium 142 mmol/L (135-145); Total Protein 7.4 g/dL (6.5-8.0); Triglycerides 76 mg/dL (<150)
[2023-12-04 11:26] LABS: Creatinine Urine 121.68 mg/dL; Microalbum/Creatinine Ratio Ur 58.3 ug/mg cr (<30)
[2023-12-04 11:34] LABS: Vitamin D 25-OH Total 47.8 ng/mL (>30)
== END 2023-12-04 09:10 | disposition home or self-care (01) ==
LOC: HO.10HDL 09:09
PROVIDERS: Visit Provider Internal Medicine
DX: E11.9 Type 2 diabetes mellitus without complications (principal); E55.9 Vitamin D deficiency, unspecified; E78.5 Hyperlipidemia, unspecified; E11.65 Type 2 diabetes mellitus with hyperglycemia; Z79.4 Long term (current) use of insulin
CPT/HCPCS: 36415; 80053; 80061; 82043; 82306; 82570

== ENCOUNTER 2023-12-08 14:48 | Outpatient (AMB) | payer MEDICARE, MEDICAID, SELFPAY ==
[2023-12-08 14:51] VITALS: BP 132/80; BMI 32.9
--- NOTE | 2023-12-08 14:51 | MHC.PC.OV ---
Vital Signs 12/08/23 14:51 Height 5 ft 3 in Weight 186 lb BMI 32.9 BP 132/80 Blood Pressure Location Lt brachial Position Sitting Intake Visit Reasons: dm Intake Note: Patient here for a follow up DM Surgical Asst Required: No Accompanied by: Spouse Allergies No Known Allergies [No Known Allergies*] Allergy (Verified 12/08/23 15:03) Medication List - Last Reconciled 12/08/23 by Linnea Subramanian MD amlodipine 10 mg PO DAILY 90 days atorvastatin 80 mg PO BEDTIME 90 days cholecalciferol (vitamin D3) (Vitamin D3) 50 mcg PO DAILY 90 days citalopram 20 mg PO DAILY 90 days dorzolamide-timolol 22.3-6.8 mg/mL 1 drp ophthalmic (eye) BID dulaglutide (Trulicity) 0.75 mg (0.5 mL) subcut QWEEK 90 days empagliflozin (Jardiance) 10 mg PO DAILY 90 days enalapril maleate 20 mg PO DAILY 90 days finasteride 5 mg PO DAILY 90 days flash glucose sensor (FreeStyle Yusuf 14 Day Sensor kit) As directed insulin degludec (Tresiba FlexTouch U-100 insulin) 22 units (0.22 mL) subcut BID 90 days latanoprost 0.005% 1 drp ophthalmic (eye) DAILY lubiprostone (Amitiza) 8 mcg PO BID 30 days metformin 500 mg PO BID 90 days metoprolol tartrate 50 mg PO BID 90 days pen needle, diabetic USE 2 TIMES DAILY pen needle, diabetic As directed potassium chloride ER 20 mEq (2 x 10 mEq) PO DAILY 3 days psyllium 1 tbsp PO DAILY 60 days simethicone (Gas Relief (simethicone)) 125 mg PO TID PRN 30 days terazosin 5 mg PO BEDTIME 90 days Tobacco use date assessed: 12/08/23 Dental Screening Dental Screen Date: 12/08/23 Did you have a dental visit in the last 12 months?: No Did you have a dental problem in the last 6 months where you did not have access to dental care?: No Was dental information given to patient?: Patient has dentist HPI HPI Comments History of Present Illness Details This is a 58-year-old male with diabetes mellitus type 2 on long-term current use of insulin, hypertension, history of stroke, hyperlipidemia and mild recurrent major depression that comes accompanied by for follow-up on his conditions. A1c within goal. Blood pressure stable. Has left hemiplegia affecting the upper limb. Depression has been stable with medications and this is follow by Psychiatry. [facility] Medical History Mild recurrent major depression Microalbuminuria Bicytopenia Colon polyps Migraines Dyslipidemia Stroke Abdominal hernia BPH w/o urinary obs/LUTS Altered bowel function Elevated PSA Stroke Depression Diabetes HTN (hypertension) Surgical History H/O umbilical hernia repair History of colonoscopy Family History Mother No problems noted. Father Enlarged prostate Social History Household Members: Spouse and Children Housing: Apartment Alcohol intake: former Patient Tobacco Use Status: Never used Tobacco e-Cigarette/Vaping Use: Never Used Second Hand Smoke Exposure: No service: No Current occupational status: unemployed Current occupational exposures/hazards: No Cognitive needs: Yes Hearing needs: No Vision needs: Yes Questionnaire PHQ-9 Over the last 2 weeks, how often have you been bothered by any of the following problems? 1. Little interest or pleasure in doing things: not at all 2. Feeling down, depressed, or hopeless: not at all 3. Trouble falling or staying asleep, or sleeping too much: not at all 4. Feeling tired or having little energy: not at all 5. Poor appetite or overeating: not at all 6. Feeling bad about yourself - or that you are a failure or have let yourself or your family down: not at all 7. Trouble concentrating on things, such as reading the newspaper or watching television: not at all 8. Moving or speaking so slowly that other people could have noticed. Or the opposite - being so fidgety or restless that you have been moving around a lot more than usual: not at all 9. Thoughts that you would be better off or of hurting yourself in some way: not at all Total score: 0 Depression Screening Interpretation: Negative Depression Screening Done: Yes 75704 - PHQ-9 Billing: Yes Source: Developed by Drs. Jesus Cox, Bill Red and colleagues, with an educational rene from [employer] Thrive Questionnaire Date Thrive assessed: 12/08/23 I am a: Patient What is your living situation today?: I have a steady place to live Within the past 12 months, did the food you bought not last and you didn't have the money to get more?: Never true Within the past 12 months, did you worry whether your food would run out before you got money to buy more?: Never true Do you have trouble paying for medicines?: No Do you have trouble getting transportation to medical appointments?: No Do you have trouble paying your heating and electricity bill?: No Do you have trouble taking care of your child, family member or friend?: No Do you have trouble with day-to-day activities such as bathing, preparing meals, shopping, managing finances, etc.?: No Are you currently unemployed and looking for a job?: No Are you interested in more education?: No Please select the resources that you would like help with: None Currently or been in a relationship where the following occur: no concerns reported THRIVE Score: 0 AUDIT C Alcohol Use Questionnaire (AUDIT-C) 1. How often do you have a drink containing alcohol?: Never Total Score: 0 CORAL-7 AMB Questionnaire CORAL-7 Date CORAL - 7 assessed: 12/08/23 Feeling nervous, anxious, or on edge: 0 = Not at all Not being able to stop or control worryin = Not at all Worrying too much about different things: 0 = Not at all Trouble relaxin = Not at all Being so restless that it is hard to sit still: 0 = Not at all Becoming easily annoyed or irritable: 0 = Not at all Feeling afraid as if something awful might happen: 0 = Not at all Total CORAL-7 score (0-4 normal; 5-9 mild; 10-14 moderate; 15-21 severe): 0 Source: Developed by Drs. Jesus Cox, Bill Red and colleagues, with an educational rene from [employer] CORAL-7 Assessment Billing CORAL-7 Assessment Tool: CORAL-7 Assessment 23680 Review of Systems Const All systems reviewed & are unremarkable except as noted in HPI and below Eyes Reports no additional complaints, Denies change in vision and Denies other visual disturbances Card Denies chest pain at rest, Denies chest pain with activity, Denies edema, Denies irregular heart rhythm, Denies claudication, Denies dyspnea, Denies dyspnea on exertion, Denies orthopnea, Denies paroxysmal nocturnal dyspnea and Denies slow heart rate Resp Denies cough, Denies dyspnea and Denies dyspnea on exertion Physical exam (Primary Care) Vital Signs: Last Vital Signs BP 132/80 12/08/23 14:51 BMI result Body Mass Index 32.9 Tobacco/Smoking Status: Tobacco use Status Tobacco use date assessed 12/08/23 12/08/23 14:57 Patient Tobacco Use Status Never used Tobacco 12/08/23 14:57 e-Cigarette/Vaping Use Never Used 12/08/23 14:57 PHQ-9: PHQ-9 Score PHQ-9: Total score 0 12/08/23 15:06 Depression Screening Interpretation: Negative Thrive Assessment: Date of Thrive Assessment Date Thrive assessed 12/08/23 12/08/23 14:57 Currently or been in a relationship where the following occur: no concerns reported Resp Effort & Inspection: normal respiratory effort Auscultation: clear to auscultation bilaterally Cardio Jugular venous distension: no JVD Rate: regular rate Rhythm: regular rhythm Heart sounds: S1 normal heart sound present and S2 normal heart sound present Neuro Motor exam (neuro): Abnormal motor strength present (5/5 right, left upper limb 1/5, left lower limb 4/5) Extrem General: Yes full ROM Results AMB Hemoglobin A1c AMB Hemoglobin A1c 6.5 % Last Edit by JIM Houston on 12/08/23 14:58 Results Reviewed Results Reviewed: Laboratory Last Values Hgb A1c (Clinic) 6.5 % (4.0-6.0) H 12/08/23 14:57 Assessment and Plan Assessment & Plan (1) Mild recurrent major depression: Code(s): F33.0 - Major depressive disorder, recurrent, mild Plan: Continue citalopram. Follow-up with psychiatry. (2) Diabetes: Code(s): E11.9 - Type 2 diabetes mellitus without complications Qualifiers: Diabetes mellitus type: type 2 Diabetes mellitus long-term insulin use: with long-term use Diabetes mellitus complication status: with hyperglycemia Qualified Code(s): E11.65 - Type 2 diabetes mellitus with hyperglycemia; Z79.4 - bed bug exterminator (current) use of insulin Plan: Continue insulin. A1c goal is equal or less than 7%. (3) Stroke: Comment: 2009 was left with left sided paralysis Code(s): I63.9 - Cerebral infarction, unspecified Plan: Continue statins. LDL goal should be less than 70. Blood pressure goal should be less than 130/80. (4) HTN (hypertension): Code(s): I10 - Essential (primary) hypertension Qualifiers: Hypertension type: primary hypertension Qualified Code(s): I10 - Essential (primary) hypertension Plan: Continue amlodipine. Blood pressure goal is equal or less than 130/80. (5) Hyperlipidemia LDL goal <70: Code(s): E78.5 - Hyperlipidemia, unspecified Plan: Continue statins. LDL goal is less than 70. Orders: Orders AMB Hemoglobin A1c Today E11.65 - Type 2 diabetes mellitus with hyperglycemia, Z79.4 - bed bug exterminator (current) use of insulin Lipid Panel 4 Months E78.5 - Hyperlipidemia, unspecified Microalbumin, Random (w Creat) 4 Months E11.9 - Type 2 diabetes mellitus without complications Comprehensive [place]. Panel Fast 4 Months E11.65 - Type 2 diabetes mellitus with hyperglycemia, Z79.4 - senior living (current) use of insulin Medications: Refilled amlodipine 10 mg PO DAILY 90 tabs 1RF 90 days cholecalciferol (vitamin D3) (Vitamin D3) 50 mcg PO DAILY 90 caps 1RF 90 days dulaglutide (Trulicity) 0.75 mg (0.5 mL) subcut QWEEK 6.5 mL 0RF 90 days E11.9 - Type 2 diabetes mellitus without complications enalapril maleate 20 mg PO DAILY 90 tabs 0RF 90 days potassium chloride ER 20 mEq (2 x 10 mEq) PO DAILY 6 caps 0RF 3 days simethicone (Gas Relief (simethicone)) 125 mg PO TID PRN 90 tabs 3RF abdominal distention 30 days empagliflozin (Jardiance) 10 mg PO DAILY 90 tabs 1RF 90 days E11.65 - Type 2 diabetes mellitus with hyperglycemia, Z79.4 - bed bug exterminator (current) use of insulin insulin degludec (Tresiba FlexTouch U-100 insulin) 22 units (0.22 mL) subcut BID 39.6 mL 1RF 90 days E11.65 - Type 2 diabetes mellitus with hyperglycemia, Z79.4 - bed bug exterminator (current) use of insulin metformin 500 mg PO BID 180 tabs 1RF 90 days E11.9 - Type 2 diabetes mellitus without complications metoprolol tartrate 50 mg PO BID 180 tabs 3RF 90 days I10 - Essential (primary) hypertension psyllium mix into at least 8 oz of water or juice before administering 1 tbsp PO DAILY 300 grams 2RF 60 days K59.09 - Other constipation Coding Level of Care Code Est Pt Level 4 (63032) Diagnoses Mild recurrent major depression F33.0 Type 2 diabetes mellitus with hyperglycemia, with long-term current use of insulin E11.65; Z79.4 Diabetes mellitus type: type 2 Diabetes mellitus long-term insulin use: with middle or intermediate school principal use Diabetes mellitus complication status: with hyperglycemia Stroke I63.9 Primary hypertension I10 Hypertension type: primary hypertension Hyperlipidemia LDL goal <70 E78.5 Additional Codes CORAL-7 Assessment Billing - CORAL-7 Assessment Tool: CORAL-7 Assessment 03880 ([id number]) Time Spent (min) 23
== END 2023-12-08 15:11 | disposition home or self-care (01) ==
PROVIDERS: PCP Internal Medicine; Visit Provider Internal Medicine
DX: E11.65 Type 2 diabetes mellitus with hyperglycemia (principal); F33.0 Major depressive disorder, recurrent, mild; Z79.4 Long term (current) use of insulin; I69.354 Hemiplegia and hemiparesis following cerebral infarction affecting left non-dominant side; I10 Essential (primary) hypertension; E78.5 Hyperlipidemia, unspecified
CPT/HCPCS: 83036; 99214

== ENCOUNTER 2024-03-09 09:45 | Outpatient (REF) | payer MEDICARE, MEDICAID, SELFPAY ==
[2024-03-09 11:17] LABS: Creatinine Urine 116.37 mg/dL; Microalbum/Creatinine Ratio Ur 39.5 ug/mg cr (<30)
[2024-03-09 11:18] LABS: Prostate Specific Antigen 2.43 ng/mL (<0.05-4.0)
[2024-03-09 11:33] LABS: Alanine Aminotransferase 25 U/L (0-40); Albumin Level 4.2 g/dL (3.5-5.0); Alkaline Phosphatase 47 U/L (39-117); Anion Gap 9 (12-20); Aspartate Amino Transferase 16 U/L (5-37); Bilirubin Total 0.7 mg/dL (0.0-1.0); Blood Urea Nitrogen 13 mg/dL (9-16); Calcium 9.5 mg/dL (8.4-10.2); Carbon Dioxide 31 mmol/L (22-29); Chloride 106 mmol/L (96-108); Cholesterol 119 mg/dL (<200); Estimated Glomerular Filt Rate > 60; Glucose Fasting 107 mg/dL (60-99); HDL Cholesterol 38 mg/dL (>40); LDL Cholesterol Calculated 70 mg/dL (<100); Potassium 3.5 mmol/L (3.3-5.1); Sodium 142 mmol/L (135-145); Total Protein 7.4 g/dL (6.5-8.0); Triglycerides 55 mg/dL (<150)
--- NOTE | 2024-03-29 14:22 | P.CONNP_ITS ---
History of Present Illness Reason for Consult Consult date: 03/29/24 Chief Complaint Chief complaint: Diabetes mellitus Dyslipidemia History of Present Illness Narrative: RTANE Patient seen by me his incipient Diabetic Nephropathy well controlled on SGLT2i and PADMINI-I Full note avail in my office Any ques call [phone] or TText [facility] Past Medical History Medical History Mild recurrent major depression Microalbuminuria Bicytopenia Colon polyps Migraines Dyslipidemia Stroke Abdominal hernia BPH w/o urinary obs/LUTS Altered bowel function Elevated PSA Stroke Depression Diabetes HTN (hypertension) Family History Family History Mother No problems noted. Father Enlarged prostate Surgical History Surgical History H/O umbilical hernia repair History of colonoscopy Social History Social History Household Members: Spouse and Children Housing: Apartment Alcohol intake: former Patient Tobacco Use Status: Never used Tobacco e-Cigarette/Vaping Use: Never Used Second Hand Smoke Exposure: No service: No Current occupational status: unemployed Current occupational exposures/hazards: No Cognitive needs: Yes Hearing needs: No Vision needs: Yes Meds Allergies Allergy/AdvReac Type Severity Reaction Status Date / Time No Known Allergies Allergy Verified 12/08/23 15:03 [No Known Allergies*] Home Medications ?Medication ?Instructions ?Recorded ?Confirmed ?Last Taken ?Type pen needle, diabetic 31 gauge x #50 ea 09/12/20 12/08/23 Unknown History 11/14 latanoprost 0.005 % eye drops 1 drp ophthalmic (eye) DAILY 11/28/20 12/08/23 Unknown History Results Lab Results 03/09/24 09:48 Procedures Date of Service Date of Service: 03/29/24
== END 2024-03-09 09:46 | disposition home or self-care (01) ==
LOC: HO.10HDL 09:45
PROVIDERS: Urology; Visit Provider Internal Medicine
DX: E78.5 Hyperlipidemia, unspecified (principal); E11.65 Type 2 diabetes mellitus with hyperglycemia; Z79.4 Long term (current) use of insulin; C61 Malignant neoplasm of prostate; Z12.5 Encounter for screening for malignant neoplasm of prostate
CPT/HCPCS: 36415; 80053; 80061; 82043; 82570; 84153

== ENCOUNTER 2024-04-05 11:11 | Outpatient (REF) | payer MEDICARE, SELFPAY ==
[2024-04-05 11:55] LABS: MANUAL DIFF FLAG NO
[2024-04-05 11:57] LABS: Basophils Percent Auto 0.6 % (0-2); Eosinophils Percent Auto 0.9 % (0-4); Hematocrit 40.6 % (42.0-52.0); Hemoglobin 13.7 g/dl (14.0-18.0); Imm Gran Abs Auto 0.01 X10*3/uL (0.00-0.03); Imm Gran Pct Auto 0.3 % (0.0-0.4); Lymphocytes Absolute Auto 1.2 X10*3/uL (1.2-4.9); Lymphocytes Percent Auto 36.9 % (20-40); Mean Corpuscular HGB Conc 33.7 g/dl (31.0-36.0); Mean Corpuscular Hemoglobin 30.2 pg (27.0-33.0); Mean Corpuscular Volume 89.6 fL (80.0-98.0); Monocytes Absolute Auto 0.3 X10*3/uL (0.1-1.2); Monocytes Percent Auto 8.9 % (2-11); Neutrophils Absolute Auto 1.8 x10*3/uL (2.0-8.3); Neutrophils Percent Auto 52.4 % (45-73); Platelet Count 183 X10*3/uL (160-400); Red Blood Count 4.53 X10*6/uL (4.60-5.80); Red Cell Distribution Width 12.7 % (11.0-16.0); White Blood Count 3.4 X10*3/uL (4.8-10.8)
[2024-04-05 12:14] LABS: Alanine Aminotransferase 21 U/L (0-40); Albumin Level 4.3 g/dL (3.5-5.0); Alkaline Phosphatase 48 U/L (39-117); Anion Gap 9 (12-20); Aspartate Amino Transferase 17 U/L (5-37); Bilirubin Total 1.1 mg/dL (0.0-1.0); Blood Urea Nitrogen 8 mg/dL (9-16); Calcium 9.9 mg/dL (8.4-10.2); Carbon Dioxide 32 mmol/L (22-29); Chloride 105 mmol/L (96-108); Cholesterol 116 mg/dL (<200); Estimated Glomerular Filt Rate > 60; Glucose Fasting 87 mg/dL (60-99); HDL Cholesterol 36 mg/dL (>40); Iron 100 mcg/dL (45-160); LDL Cholesterol Calculated 69 mg/dL (<100); Percent Iron Saturation 39 % (15-50); Potassium 4.1 mmol/L (3.3-5.1); Sodium 142 mmol/L (135-145); Total Iron Binding Capacity 259 mcg/dL (228-428); Total Protein 7.7 g/dL (6.5-8.0); Triglycerides 55 mg/dL (<150); Unsaturated Iron Binding 159 ug/dL
[2024-04-05 12:29] LABS: Prostate Specific Antigen 2.75 ng/mL (<0.05-4.0)
[2024-04-05 12:30] LABS: Vitamin D 25-OH Total 52.6 ng/mL (>30)
[2024-04-05 12:31] LABS: Creatinine Urine 167.68 mg/dL; Microalbum/Creatinine Ratio Ur 45.3 ug/mg cr (<30)
[2024-04-05 12:44] LABS: Folate 12.6 ng/mL (> or = 4.0); Vitamin B12 560 pg/mL (200-900)
== END 2024-04-05 11:12 | disposition home or self-care (01) ==
LOC: HO.10HDL 11:11
PROVIDERS: Urology; Visit Provider Internal Medicine
DX: Z01.811 Encounter for preprocedural respiratory examination (principal); Z12.5 Encounter for screening for malignant neoplasm of prostate; D64.9 Anemia, unspecified; E55.9 Vitamin D deficiency, unspecified; E53.8 Deficiency of other specified B group vitamins; E11.9 Type 2 diabetes mellitus without complications; E78.5 Hyperlipidemia, unspecified
CPT/HCPCS: 36415; 80053; 80061; 82043; 82306; 82570; 82607; 82746; 83540; 84153; 85025

== ENCOUNTER 2024-04-07 14:51 | Outpatient (AMB) | payer MEDICARE, MEDICAID, SELFPAY ==
[2024-04-07 15:00] VITALS: BP 136/80; BMI 32.8
--- NOTE | 2024-04-07 15:00 | MHC.PC.OV ---
Vital Signs 04/07/24 15:00 Height 5 ft 3 in Weight 185 lb BMI 32.8 BP 136/80 Blood Pressure Location Lt brachial Position Sitting Intake Visit Reasons: dm Intake Note: Patient here for a follow up DM Retail Advertising Executive Required: No Accompanied by: Self / Same As Patient Allergies No Known Allergies [No Known Allergies*] Allergy (Verified 04/07/24 15:15) Medication List - Last Reconciled 04/07/24 by Linnea Subramanian MD amlodipine 10 mg PO DAILY 90 days atorvastatin 80 mg PO BEDTIME 90 days cholecalciferol (vitamin D3) (Vitamin D3) 50 mcg PO DAILY 90 days citalopram 20 mg PO DAILY 90 days dorzolamide-timolol 22.3-6.8 mg/mL 1 drp ophthalmic (eye) BID dulaglutide (Trulicity) 0.75 mg (0.5 mL) subcut QWEEK 90 days empagliflozin (Jardiance) 10 mg PO DAILY 90 days enalapril maleate 20 mg PO DAILY 90 days finasteride 5 mg PO DAILY 90 days flash glucose sensor (FreeStyle Yusuf 14 Day Sensor kit) As directed insulin degludec (Tresiba FlexTouch U-100 insulin) 22 units (0.22 mL) subcut BID 90 days latanoprost 0.005% 1 drp ophthalmic (eye) DAILY lubiprostone 8 mcg PO BID metformin 500 mg PO BID 90 days metoprolol tartrate 50 mg PO BID 90 days pen needle, diabetic USE 2 TIMES DAILY pen needle, diabetic As directed potassium chloride ER 20 mEq (2 x 10 mEq) PO DAILY 3 days psyllium 1 tbsp PO DAILY 60 days simethicone (Gas Relief (simethicone)) 125 mg PO TID PRN 30 days terazosin 5 mg PO BEDTIME 90 days Tobacco use date assessed: 12/08/23 Dental Screening Dental Screen Date: 12/08/23 HPI HPI Comments History of Present Illness Details This is a 58-year-old male with diabetes mellitus type 2, hypertension, hyperlipidemia and mild recurrent major depression that comes today accompanied by for follow-up on his conditions. A1c within goal. Blood pressure stable. LDL within goal. Mild leukopenia and anemia that will be repeated. Had a stroke 15 years ago with left hemiparesis more prominent in upper limb. Walks with a cane for gait stability. Denies any chest pain or shortness on breath. Complains of persistent headaches that started about 6 months ago in left parietal area and happens about 3 to 4 times a week. They are 10/10 in intensity. No neurological deficit associated with it. Depression is stable with medications. [facility] Medical History (Updated 04/07/24 @ 15:23 by Linnea Subramanian MD) Mild recurrent major depression Microalbuminuria Bicytopenia Colon polyps Migraines Dyslipidemia Stroke Abdominal hernia BPH w/o urinary obs/LUTS Altered bowel function Elevated PSA Stroke Depression Diabetes HTN (hypertension) Surgical History H/O umbilical hernia repair History of colonoscopy Family History Mother No problems noted. Father Enlarged prostate Social History Household Members: Spouse and Children Housing: Apartment Alcohol intake: former Patient Tobacco Use Status: Never used Tobacco e-Cigarette/Vaping Use: Never Used Second Hand Smoke Exposure: No service: No Current occupational status: unemployed Current occupational exposures/hazards: No Cognitive needs: Yes Hearing needs: No Vision needs: Yes Questionnaire Thrive Questionnaire Date Thrive assessed: 12/08/23 CORAL-7 AMB Questionnaire CORAL-7 Date CORAL - 7 assessed: 12/08/23 Source: Developed by Drs. Jesus Cox, Latisha Guaman, Bill Adams and colleagues, with an educational rene from [employer]. Review of Systems Const All systems reviewed & are unremarkable except as noted in HPI and below Card Denies chest pain at rest, Denies chest pain with activity, Denies edema, Denies irregular heart rhythm, Denies claudication, Denies dyspnea, Denies dyspnea on exertion, Denies orthopnea, Denies paroxysmal nocturnal dyspnea and Denies slow heart rate Resp Denies cough, Denies dyspnea and Denies dyspnea on exertion GI Denies abdominal pain, Denies change in bowel habits, Denies excessive flatus, Denies nausea and Denies vomiting Denies urinary hesitancy, Denies urinary incontinence and Denies urinary urgency Physical exam (Primary Care) Vital Signs: Last Vital Signs BP 136/80 04/07/24 15:00 BMI result Body Mass Index 32.8 BMI Assessment/Plan discussion: High BMI High, discussed plan: lifestyle, weight reduction, dietary and physical activity Tobacco/Smoking Status: Tobacco use Status Tobacco use date assessed 12/08/23 04/07/24 15:02 Patient Tobacco Use Status Never used Tobacco 04/07/24 15:02 e-Cigarette/Vaping Use Never Used 04/07/24 15:02 Thrive Assessment: Date of Thrive Assessment Date Thrive assessed 12/08/23 04/07/24 15:02 Const General: cooperative Limitations: ambulation with cane Resp Effort & Inspection: normal respiratory effort Auscultation: clear to auscultation bilaterally Cardio Jugular venous distension: no JVD Rate: regular rate Rhythm: regular rhythm Heart sounds: S1 normal heart sound present and S2 normal heart sound present Neuro Motor exam (neuro): Abnormal motor strength present (2/5 in left upper limb, 4/5 left lower limb) Results AMB Hemoglobin A1c AMB Hemoglobin A1c 6.7 % Last Edit by JIM Houston on 04/07/24 15:26 Results Reviewed Results Reviewed: Laboratory Last Values Hgb A1c (Clinic) 6.7 % (4.0-6.0) H 04/07/24 14:58 Assessment and Plan Assessment & Plan (1) Mild recurrent major depression: Code(s): F33.0 - Major depressive disorder, recurrent, mild Plan: Continue citalopram. (2) Diabetes: Code(s): E11.9 - Type 2 diabetes mellitus without complications Qualifiers: Diabetes mellitus type: type 2 Diabetes mellitus supervisor long goods insulin use: with supervisor long goods use Diabetes mellitus complication status: with hyperglycemia Qualified Code(s): E11.65 - Type 2 diabetes mellitus with hyperglycemia; Z79.4 - terminal manager (current) use of insulin Plan: Continue insulin and Jardiance. A1c goal is equal or less than 7% (3) HTN (hypertension): Code(s): I10 - Essential (primary) hypertension Qualifiers: Hypertension type: primary hypertension Qualified Code(s): I10 - Essential (primary) hypertension Plan: Continue amlodipine and enalapril. BP goal is equal or less than 130/80. (4) Hyperlipidemia LDL goal <70: Code(s): E78.5 - Hyperlipidemia, unspecified Plan: Continue statins. LDL goal is less than 70. Orders: Orders AMB Hemoglobin A1c Today E11.65 - Type 2 diabetes mellitus with hyperglycemia, Z79.4 - shelter (current) use of insulin Vitamin D 25-OH Total 4 Months E55.9 - Vitamin D deficiency, unspecified MR head/brain wo con Today R51.9 - Headache, unspecified Complete Blood Count Auto Diff 4 Months D64.9 - Anemia, unspecified Lipid Panel 4 Months E78.5 - Hyperlipidemia, unspecified Microalbumin, Random (w Creat) 4 Months E11.9 - Type 2 diabetes mellitus without complications Comprehensive Painter. Panel Fast 4 Months E11.65 - Type 2 diabetes mellitus with hyperglycemia, Z79.4 - shelter (current) use of insulin IRON PROFILE 4 Months D64.9 - Anemia, unspecified Medications: New empagliflozin (Jardiance) 25 mg PO DAILY 90 tabs 1RF 90 days Discontinued dulaglutide (Trulicity) Discontinued Reason: Patient Completed Course 0.75 mg (0.5 mL) subcut QWEEK 90 days 6.5 mL 0RF E11.9 - Type 2 diabetes mellitus without complications empagliflozin (Jardiance) Discontinued Reason: Patient Completed Course 10 mg PO DAILY 90 days 90 tabs 1RF E11.65 - Type 2 diabetes mellitus with hyperglycemia, Z79.4 - terminal manager (current) use of insulin Coding Level of Care Code Est Pt Level 4 (36547) Complex EM visit Add On G2211 Diagnoses Mild recurrent major depression F33.0 Type 2 diabetes mellitus with hyperglycemia, with long-term current use of insulin E11.65; Z79.4 Diabetes mellitus type: type 2 Diabetes mellitus residential insulin use: with supervisor long goods use Diabetes mellitus complication status: with hyperglycemia Primary hypertension I10 Hypertension type: primary hypertension Hyperlipidemia LDL goal <70 E78.5 Time Spent (min) 23
== END 2024-04-07 15:27 | disposition home or self-care (01) ==
PROVIDERS: PCP Internal Medicine; Visit Provider Internal Medicine
DX: F33.0 Major depressive disorder, recurrent, mild (principal); E11.65 Type 2 diabetes mellitus with hyperglycemia; Z79.4 Long term (current) use of insulin; I10 Essential (primary) hypertension; E78.5 Hyperlipidemia, unspecified
CPT/HCPCS: 83036; 99214; G2211

== ENCOUNTER 2024-04-13 13:26 | Outpatient (AMB) | payer MEDICARE, SELFPAY ==
--- NOTE | 2024-04-13 13:29 | A.OFFVIS_ITS ---
Intake Visit Reasons: 6M Follow Up-PVR/PSA(set) Intake Note: Patient presents to the office today for a 6 month follow up/PVR/PSA Urology Med: Finasteride, Terazosin Antibiotic Allergy: None Blood Thinner: None PVR-13mL Allergies No Known Allergies [No Known Allergies*] Allergy (Verified 04/13/24 13:29) HPI Comments Details: Ruslan is a pleasant Nepali-speaking male. He is seen for the following urologic conditions - prostate cancer - Lower urinary tract symptoms Nepali translation in office performed a qualified medical insurance claims processor Six-month follow-up PSA 2.7 Continue six-month follow-up Combination therapy for prostate lower urinary tract symptoms Finasteride 5 mg with terazosin 10 mg PSA 04/24 2.7 Prostate Cancer Grade Group 1, low volume initial management active surveillance 11/[address] Rodriguez November 2020 PSA diagnosis 6.6 09/23 ultrasound fusion prostate biopsy targeted all cores negative 04/23 - prostate MRI 1.2 cm left anterior apical PI-RADS 4, organ confined Initial therapy active surveillance with finasteride pT1c Prostate cancer pathology 12/20 Histologic type: Acinar adenocarcinoma Marana score: Marana Grade 3 + 3 = 6 (Parts B and H) LBM 5%, RBM 5% Tumor quantitation: Number cores positive: 2, Total number of cores: 12 % of tissue involved: less than 5% (Part B); 5-10% (Part H) - LVI, PN negative PSA 04/21 3.1, 10/23 2.3, 03/22 1.6, 12/22 2.8 Lower urinary tract symptoms Combination therapy 12/20 - finasteride 5 mg daily, tamsulosin 0.4 mg daily Primary complaint nocturia x3 down from 5-6 GreenLight laser performed October 2021 Laboratory investigations include - 12/19 4.4, 07/21 4.5 - 10/22 6.6 PFSH Medical History Mild recurrent major depression Microalbuminuria Bicytopenia Colon polyps Migraines Dyslipidemia Stroke Abdominal hernia BPH w/o urinary obs/LUTS Altered bowel function Elevated PSA Stroke Depression Diabetes HTN (hypertension) Surgical History H/O umbilical hernia repair History of colonoscopy Family History Mother No problems noted. Father Enlarged prostate Social History Household Members: Spouse and Children Housing: Apartment Alcohol intake: former Patient Tobacco Use Status: Never used Tobacco e-Cigarette/Vaping Use: Never Used Second Hand Smoke Exposure: No service: No Current occupational status: unemployed Current occupational exposures/hazards: No Cognitive needs: Yes Hearing needs: No Vision needs: Yes Review of Systems Const Denies chills and Denies fever(s) Card Reports no additional complaints and Denies syncope Resp Denies cough GI Denies abdominal pain and Denies heartburn Reports as per HPI and Denies change in libido Neuro Denies syncope Psych Denies change in libido Endo Denies change in libido Physical Exam Const General: cooperative, healthy appearing, comfortable and no acute distress Orientation/consciousness: patient oriented x3 HEENT Face and sinus: Yes normal facial exam Mouth: moist mucous membranes Neck Neck: Yes normal visual inspection, Yes full ROM and Yes trachea midline Chest Chest palpation & inspection: normal inspection of the chest Resp Effort & Inspection: normal respiratory effort, able to speak in complete sentences and no respiratory distress GI Inspection: Yes normal to inspection Back/Spine/Pelvis Cervical Spine: normal cervical lordosis Thoracic/Lumbar Spine: thoracic and lumbar spine normal to inspection Skin General skin exam: no rashes or lesions noted Neuro General: patient oriented x3, gait normal, tone normal and moves all extremities Extrem General: Yes normal to inspection and Yes capillary refill normal Office Procedures Post Void Residual Post Residual Void Post Void Residual (PVR): 13 [id number] Void Residual by ultrasound Results AMB Urinalysis, Automated UA Leukoctes 0 Gia/uL Last Edit by Lena Lozoya CMA on 04/13/24 13:44 UA Nitrite Negative Last Edit by Lena Lozoya CMA on 04/13/24 13:44 UA Urobilinogen 0.2 mg/dL Last Edit by Lena Lozoya CMA on 04/13/24 13:44 UA Protein 15 mg/dL Last Edit by Lena Lozoya CMA on 04/13/24 13:44 UA pH 5.5 Last Edit by Lena Lozoay CMA on 04/13/24 13:44 UA Blood 0 Rolando/uL Last Edit by Lena Lozoya CMA on 04/13/24 13:44 UA Specific [place] 1.010 Last Edit by Lena Lozoya CMA on 04/13/24 13:44 UA Ketone Negative Last Edit by Lena Lozoya CMA on 04/13/24 13:44 UA Bilirubin 0 mg/dL Last Edit by Lena Lozoya CMA on 04/13/24 13:44 UA Glucose 1000 mg/dL Last Edit by Lena Lozoya CMA on 04/13/24 13:44 Results Reviewed Results Reviewed: Laboratory Last Values Urine pH (Auto) 5.5 04/13/24 13:43 Specific [place] (Auto) 1.010 04/13/24 13:43 Urine Protein (Auto) 15 mg/dL 04/13/24 13:43 Glucose (UA)(Auto) 1000 mg/dL 04/13/24 13:43 Urine Ketones (Auto) Negative 04/13/24 13:43 Urine Blood (Auto) 0 Rolando/uL 04/13/24 13:43 Urine Nitrite (Auto) Negative 04/13/24 13:43 Urine Bilirubin (Auto) 0 mg/dL 04/13/24 13:43 Urine Urobilinogen (Auto) 0.2 mg/dL 04/13/24 13:43 Leukocyte Esterase (Auto) 0 Gia/uL 04/13/24 13:43 Assessment & Plan Assessment & Plan (1) Prostate cancer: Comment: Low volume, low-grade 2020 Code(s): C61 - Malignant neoplasm of prostate Category: Medical (2) Nocturia associated with benign prostatic hyperplasia: Code(s): N40.1 - Benign prostatic hyperplasia with lower urinary tract symptoms; R35.1 - Nocturia Category: Medical Plan Continue surveillance Orders: Orders AMB Urinalysis Automated 04/13/24 N40.1 - Benign prostatic hyperplasia with lower urinary tract symptoms, R35.1 - Nocturia AMB Post Void Residual by ultrasound 04/13/24 N40.1 - Benign prostatic hyperplasia with lower urinary tract symptoms, R35.1 - Nocturia Prostate Specific Antigen 6 Months C61 - Malignant neoplasm of prostate Patient Instructions: Imaging studies, laboratory and physical exam results were discussed and reviewed in detail. No major barriers to patient understanding were identified. An opportunity to ask questions regarding the treatment plan was provided. All questions were answered. The patient expressed understanding and agreement with the above treatment plan. The patient is aware they should contact our office by phone for worsening of their current condition or the appearance of new urologic symptoms. Compliance is encouraged with any medications and followup testing that is ordered. It is a privilege to participate in the urologic care of your patient. If you have any questions or concerns regarding treatment for the above conditions, or other urologic issues, please do not hesitate to contact me. The office telephone contact is [phone]. This note is constructed using voice recognition software. While every effort has been made to ensure accuracy data keyer errors may have been included. Yours sincerely, Dr Khurram Rodriguez MD, [facility] - Urology Providers of Expert, Compassionate Care for the Genitourinary System Coding Level of Care Code Est Pt Level 3 (77087) Diagnoses Prostate cancer C61 Nocturia associated with benign prostatic hyperplasia N40.1; R35.1 CPT Codes Post Residual Void - PVR CPT Code: 74781-Usin Void Residual by ultrasound ([id number])
== END 2024-04-13 14:15 | disposition home or self-care (01) ==
PROVIDERS: PCP Internal Medicine; Visit Provider Urology
DX: C61 Malignant neoplasm of prostate (principal); N40.1 Benign prostatic hyperplasia with lower urinary tract symptoms; R35.1 Nocturia
CPT/HCPCS: 99213

== ENCOUNTER → 2024-04-13 13:26 | Outpatient (BNVA) | payer MEDICARE, SELFPAY | PROVIDERS: PCP Internal Medicine; Visit Provider Urology | DX: C61 Malignant neoplasm of prostate (principal); N40.1 Benign prostatic hyperplasia with lower urinary tract symptoms; N13.8 Other obstructive and reflux uropathy | CPT/HCPCS: 51798; 81003; 99212 ==

== ENCOUNTER 2024-08-28 09:55 | Outpatient (REF) | payer MEDICARE, SELFPAY ==
[2024-08-28 10:08] LABS: MANUAL DIFF FLAG NO
[2024-08-28 10:58] LABS: Basophils Percent Auto 0.5 % (0-2); Eosinophils Absolute Auto 0.1 X10*3/uL (0.0-0.4); Eosinophils Percent Auto 2.3 % (0-4); Hematocrit 39.7 % (42.0-52.0); Hemoglobin 13.6 g/dl (14.0-18.0); Imm Gran Abs Auto 0.01 X10*3/uL (0.00-0.03); Imm Gran Pct Auto 0.2 % (0.0-0.4); Lymphocytes Absolute Auto 1.3 X10*3/uL (1.2-4.9); Lymphocytes Percent Auto 30.4 % (20-40); Mean Corpuscular HGB Conc 34.3 g/dl (31.0-36.0); Mean Corpuscular Hemoglobin 30.2 pg (27.0-33.0); Mean Corpuscular Volume 88.2 fL (80.0-98.0); Monocytes Absolute Auto 0.5 X10*3/uL (0.1-1.2); Monocytes Percent Auto 11.2 % (2-11); Neutrophils Absolute Auto 2.4 x10*3/uL (2.0-8.3); Neutrophils Percent Auto 55.4 % (45-73); Platelet Count 176 X10*3/uL (160-400); Red Cell Distribution Width 12.7 % (11.0-16.0); White Blood Count 4.3 X10*3/uL (4.8-10.8)
[2024-08-28 11:33] LABS: Alanine Aminotransferase 32 U/L (0-40); Albumin Level 4.1 g/dL (3.5-5.0); Alkaline Phosphatase 47 U/L (39-117); Anion Gap 10 (12-20); Aspartate Amino Transferase 25 U/L (5-37); Bilirubin Total 0.9 mg/dL (0.0-1.0); Blood Urea Nitrogen 10 mg/dL (9-16); Calcium 9.5 mg/dL (8.4-10.2); Carbon Dioxide 31 mmol/L (22-29); Chloride 107 mmol/L (96-108); Cholesterol 126 mg/dL (<200); Estimated Glomerular Filt Rate > 60; Glucose Fasting 68 mg/dL (60-99); HDL Cholesterol 42 mg/dL (>40); Iron 65 mcg/dL (45-160); LDL Cholesterol Calculated 71 mg/dL (<100); Percent Iron Saturation 26 % (15-50); Potassium 3.8 mmol/L (3.3-5.1); Sodium 144 mmol/L (135-145); Total Iron Binding Capacity 251 mcg/dL (228-428); Total Protein 7.3 g/dL (6.5-8.0); Triglycerides 68 mg/dL (<150); Unsaturated Iron Binding 186 ug/dL
[2024-08-28 11:41] LABS: Creatinine Urine 124.92 mg/dL; Microalbum/Creatinine Ratio Ur 92.8 ug/mg cr (<30)
[2024-08-28 11:45] LABS: Prostate Specific Antigen 3.04 ng/mL (<0.05-4.0)
[2024-08-28 11:49] LABS: Vitamin D 25-OH Total 44.5 ng/mL (>30)
== END 2024-08-28 09:56 | disposition home or self-care (01) ==
LOC: HO.LAB 09:55
PROVIDERS: Urology; PCP Internal Medicine; Visit Provider Internal Medicine
DX: C61 Malignant neoplasm of prostate (principal); E55.9 Vitamin D deficiency, unspecified; E78.5 Hyperlipidemia, unspecified; E11.9 Type 2 diabetes mellitus without complications; D64.9 Anemia, unspecified; E11.65 Type 2 diabetes mellitus with hyperglycemia; Z79.4 Long term (current) use of insulin; Z12.5 Encounter for screening for malignant neoplasm of prostate
CPT/HCPCS: 36415; 80053; 80061; 82043; 82306; 82570; 83540; 84153; 85025

== ENCOUNTER 2024-09-06 13:49 | Outpatient (AMB) | payer OTHER, MEDICARE, SELFPAY ==
--- NOTE | 2024-09-06 13:59 | A.OFFPC_ITS ---
Vital Signs 09/06/24 14:07 Height 5 ft 3 in Weight 189 lb BMI 33.5 BP 130/56 L Blood Pressure Location Lt brachial Position Sitting Pulse 60 Pulse Source Pulse Oximeter Pulse Oximetry (%) 93 Oxygen Delivery Method Room Air Intake Visit Reasons: 4mth f/u Ambulatory Services Representative Required: No Accompanied by: Spouse Allergies No Known Allergies [No Known Allergies*] Allergy (Verified 09/06/24 14:22) Medication List - Last Reconciled 09/06/24 by Linnea Subramanian MD amlodipine 10 mg PO DAILY 90 days atorvastatin 80 mg PO BEDTIME 90 days cholecalciferol (vitamin D3) (Vitamin D3) 50 mcg PO DAILY 90 days citalopram 20 mg PO DAILY 90 days dorzolamide-timolol 22.3-6.8 mg/mL 1 drp ophthalmic (eye) BID empagliflozin (Jardiance) 25 mg PO DAILY 90 days enalapril maleate 20 mg PO DAILY 90 days finasteride 5 mg PO DAILY 90 days flash glucose sensor (FreeStyle Yusuf 14 Day Sensor kit) As directed insulin degludec (Tresiba FlexTouch U-100 insulin) 22 units (0.22 mL) subcut BID 90 days latanoprost 0.005% 1 drp ophthalmic (eye) DAILY lubiprostone 8 mcg PO BID metformin 500 mg PO BID 90 days metoprolol tartrate 50 mg PO BID 90 days pen needle, diabetic USE 2 TIMES DAILY pen needle, diabetic As directed potassium chloride ER 20 mEq (2 x 10 mEq) PO DAILY 3 days psyllium 1 tbsp PO DAILY 60 days simethicone (Gas Relief (simethicone)) 125 mg PO TID PRN 30 days terazosin 5 mg PO BEDTIME 90 days Tobacco use date assessed: 09/06/24 Dental Screening Dental Screen Date: 12/08/23 HPI HPI Comments History of Present Illness Details The patient is a 58-year-old male presenting with diabetes mellitus ty pe 2, hypertension, hypercholesterolemia, and post-stroke management. 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 Currently, his hemiparesis remains with the inability to move his left hand and difficulty lifting his left arm and leg. His blood pressure is reported to be well-controlled, and his most recent Hemoglobin A1c is 6.8, which was measured approximately 2-3 weeks prior to this visit. The patient is on multiple medications including Jardiance 25 mg for diabetes, citalopram 20 mg for depression with anxiety, metoprolol, and finasteride for benign prostatic hyperplasia. There have been no new symptoms such as chest pain or shortness of breath noted since the last visit. [facility] Medical History Mild recurrent major depression Microalbuminuria Bicytopenia Colon polyps Migraines Dyslipidemia Stroke Abdominal hernia BPH w/o urinary obs/LUTS Altered bowel function Elevated PSA Stroke Depression Diabetes HTN (hypertension) Surgical History H/O umbilical hernia repair History of colonoscopy Family History Mother No problems noted. Father Enlarged prostate Social History Household Members: Spouse and Children Housing: Apartment Alcohol intake: former Patient Tobacco Use Status: Never used Tobacco e-Cigarette/Vaping Use: Never Used Second Hand Smoke Exposure: No service: No Current occupational status: unemployed Current occupational exposures/hazards: No Cognitive needs: Yes Hearing needs: No Vision needs: Yes Questionnaire PHQ-9 Over the last 2 weeks, how often have you been bothered by any of the following problems? 1. Little interest or pleasure in doing things: not at all 2. Feeling down, depressed, or hopeless: not at all 3. Trouble falling or staying asleep, or sleeping too much: not at all 4. Feeling tired or having little energy: not at all 5. Poor appetite or overeating: not at all 6. Feeling bad about yourself - or that you are a failure or have let yourself or your family down: not at all 7. Trouble concentrating on things, such as reading the newspaper or watching television: not at all 8. Moving or speaking so slowly that other people could have noticed. Or the opposite - being so fidgety or restless that you have been moving around a lot more than usual: not at all 9. Thoughts that you would be better off or of hurting yourself in some way: not at all Total score: 0 Depression Screening Interpretation: Negative Depression Screening Done: Yes 80898 - PHQ-9 Billing: Yes Source: Developed by Drs. Jesus Cox, Latisha Guaman, Bill Adams and colleagues, with an educational rene from [employer]. Thrive Questionnaire Date Thrive assessed: 09/06/24 I am a: Patient What is your living situation today?: I have a steady place to live Within the past 12 months, did the food you bought not last and you didn't have the money to get more?: Never true Within the past 12 months, did you worry whether your food would run out before you got money to buy more?: Never true Do you have trouble paying for medicines?: No Do you have trouble getting transportation to medical appointments?: No Do you have trouble paying your heating and electricity bill?: No Do you have trouble taking care of your child, family member or friend?: No Do you have trouble with day-to-day activities such as bathing, preparing meals, shopping, managing finances, etc.?: No Are you currently unemployed and looking for a job?: No Are you interested in more education?: No Please select the resources that you would like help with: None Currently or been in a relationship where the following occur: No concerns reported THRIVE Score: 0 AUDIT C Alcohol Use Questionnaire (AUDIT-C) 1. How often do you have a drink containing alcohol?: Never 3. How often do you have six or more drinks on one occasion?: Never Total Score: 0 Score Reviewed/Action Taken: No CORAL-7 AMB Questionnaire CORAL-7 Date CORAL - 7 assessed: 09/06/24 Feeling nervous, anxious, or on edge: 0 = Not at all Not being able to stop or control worryin = Not at all Worrying too much about different things: 0 = Not at all Trouble relaxin = Not at all Being so restless that it is hard to sit still: 0 = Not at all Becoming easily annoyed or irritable: 0 = Not at all Feeling afraid as if something awful might happen: 0 = Not at all Total CORAL-7 score (0-4 normal; 5-9 mild; 10-14 moderate; 15-21 severe): 0 Source: Developed by James Sultanaet B.W. Deniz, Bill Adams and colleagues, with an educational rene from [employer] CORAL-7 Assessment Billing CORAL-7 Assessment Tool: CORAL-7 Assessment 23161 Review of Systems Const Details: - Cardiovascular: Denies chest pain. - Respiratory: Denies shortness of breath. Physical exam (Primary Care) Vital Signs: Last Vital Signs Pulse 60 09/06/24 14:07 BP 130/56 L 09/06/24 14:07 Pulse Ox 93 09/06/24 14:07 Oxygen Delivery Method Room Air 09/06/24 14:07 BMI result Body Mass Index 33.5 BMI Assessment/Plan discussion: High BMI High, discussed plan: lifestyle, weight reduction, dietary and physical activity Tobacco/Smoking Status: Tobacco use Status Tobacco use date assessed 09/06/24 09/06/24 14:21 Patient Tobacco Use Status Never used Tobacco 09/06/24 13:59 e-Cigarette/Vaping Use Never Used 09/06/24 13:59 PHQ-9: PHQ-9 Score PHQ-9: Total score 0 09/06/24 14:25 Depression Screening Interpretation: Negative Thrive Assessment: Date of Thrive Assessment Date Thrive assessed 09/06/24 09/06/24 14:19 Currently or been in a relationship where the following occur: No concerns reported Const Other: General: No confusion Orientation/Consciousness: Patient oriented x3 and No confusion Respiratory: Normal respiratory effort, clear to auscultation bilaterally Cardiovascular: No jugular venous distension, regular rate, regular rhythm, S1 normal heart sound present and S2 normal heart sound present Neurology: Patient oriented x3, no focal motor deficits and No confusion. Deficit on the left side, unable to move the hand. Extremities: Full ROM except for left side where there is no movement in left upper limb Psychology: Grossly normal Office Procedures Flu Questionnaire Does the patient have a severe egg allergy?: No Does the patient have severe life threatening allergies?: No Does the patient have a fever or illness today?: No Has the patient ever had Guillain-[place] Syndrome?: No Has the patient ever had any past reaction to a flu shot?: No Results AMB Hemoglobin A1c AMB Hemoglobin A1c 6.8 % Last Edit by ARMANDO Salinas on 09/06/24 14:36 Immunizations Fluarix Triv [id number] (PF) 45 mcg (15 mcg x 3)/0.5 mL IM syringe Performing Provider: Linnea Subramanian MD Performing Location: [facility] Administered by: ARMANDO Salinas on 09/06/24 14:37 Dose Route Admin Location Dispensed Lot Number Expiration Date NDC [employer] Lead 0.5 mL IM Left Deltoid 0.5 mL [id number] 02/28/25 19713-447-30 [employer] VIS Given Date VIS Provided VIS Publication Date 09/06/24 Single Vaccine 21 Eligibility Eligibility Date Funding Source Not [facility] Eligible 09/06/24 Private Coding Level of Care Code Est Pt Level 4 (38358) Complex EM visit Add On G2211 Diagnoses Mild recurrent major depression F33.0 Hyperlipidemia LDL goal <70 E78.5 Type 2 diabetes mellitus with hyperglycemia, with long-term current use of insulin E11.65; Z79.4 Diabetes mellitus type: type 2 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: with correction use Diabetes mellitus complication status: with hyperglycemia Primary hypertension I10 Hypertension type: primary hypertension Stroke I63.9 Additional Codes CORAL-7 Assessment Billing - CORAL-7 Assessment Tool: CORAL-7 Assessment 73618 ([id number]) PHQ-9 - 15600 - PHQ-9 Billing: Yes ([id number]) Time Spent (min) 23 Assessment & Plan Assessment & Plan (1) Mild recurrent major depression: Code(s): F33.0 - Major depressive disorder, recurrent, mild Category: Medical (2) Hyperlipidemia LDL goal <70: Code(s): E78.5 - Hyperlipidemia, unspecified Category: Medical (3) Diabetes: Code(s): E11.9 - Type 2 diabetes mellitus without complications Category: Medical Qualifiers: Diabetes mellitus type: type 2 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: with petroleum terminal plant operator use Diabetes mellitus complication status: with hyperglycemia Qualified Code(s): E11.65 - Type 2 diabetes mellitus with hyperglycemia; Z79.4 - jail (current) use of insulin (4) HTN (hypertension): Code(s): I10 - Essential (primary) hypertension Category: Medical Qualifiers: Hypertension type: primary hypertension Qualified Code(s): I10 - Essential (primary) hypertension (5) Stroke: Comment: 2009 was left with left sided paralysis Code(s): I63.9 - Cerebral infarction, unspecified Category: Medical Plan - Continue current medication regimen as they appear effective and well- tolerated. - Monitor blood pressure, lipid levels, and glucose control regularly through follow-up laboratory assessments. - Continue citalopram for depression with anxiety. - Continue Jardiance, metformin, and metoprolol for diabetes and cardiovascular health. - Regular eye examination recommended due to diabetes implications. Patient was informed and verbally consented to the use of an ambient scribe for clinic note documentation during this visit. During our discussion, we reviewed the current management of the patient's chronic conditions, including diabetes, hypertension, and hypercholesterolemia. We confirmed the control of blood pressure and diabetes as satisfactory, with an A1c of 6.8. The patient denied any new symptoms such as shortness of breath or chest pain, acknowledging stable health conditions. We agreed on the continuation of the existing medication regimen, given its efficacy, while planning for regular monitoring to manage his health optimally. The benefits and necessity of regular assessments were discussed, and the patient consented to this plan. Orders: Orders Influenza [id number] Immunization Today E11.65 - Type 2 diabetes mellitus with hyperglycemia, Z23 - Encounter for immunization, Z79.4 - jail (current) use of insulin Vitamin D 25-OH Total 4 Months E55.9 - Vitamin D deficiency, unspecified Comprehensive [place]. Panel Fast 4 Months E11.65 - Type 2 diabetes mellitus with hyperglycemia, Z79.4 - lobsterman (current) use of insulin AMB Hemoglobin A1c Today E11.65 - Type 2 diabetes mellitus with hyperglycemia, Z79.4 - lobsterman (current) use of insulin Lipid Panel 4 Months E78.5 - Hyperlipidemia, unspecified Microalbumin, Random (w Creat) 4 Months R80.9 - Proteinuria, unspecified Medications: Refilled amlodipine 10 mg PO DAILY 90 days 90 tabs 1RF cholecalciferol (vitamin D3) (Vitamin D3) 50 mcg PO DAILY 90 days 90 caps 1RF empagliflozin (Jardiance) 25 mg PO DAILY 90 days 90 tabs 1RF metformin 500 mg PO BID 90 days 180 tabs 1RF E11.9 - Type 2 diabetes mellitus without complications atorvastatin 80 mg PO BEDTIME 90 days 90 tabs 1RF citalopram 20 mg PO DAILY 90 days 90 tabs 1RF enalapril maleate 20 mg PO DAILY 90 days 90 tabs 1RF insulin degludec (Tresiba FlexTouch U-100 insulin) 22 units (0.22 mL) subcut BID 90 days 39.6 mL 1RF E11.65 - Type 2 diabetes mellitus with hyperglycemia, Z79.4 - lobsterman (current) use of insulin metoprolol tartrate 50 mg PO BID 90 days 180 tabs 3RF I10 - Essential (primary) hypertension Discontinued potassium chloride ER Discontinued Reason: Patient Completed Course 20 mEq (2 x 10 mEq) PO DAILY 3 days 6 caps 0RF Patient Instructions: - Continue all current medications as prescribed and ensure timely refills. - Monitor for any new symptoms, particularly chest pain or difficulty breathing, and report them promptly. - Maintain regular follow-up appointments for routine blood pressure and diabetes checks. - Pursue recommended health screenings, including regular eye exams. - Contact the healthcare office for any concerning changes or questions regarding medications.
[2024-09-06 14:07] VITALS: BP 130/56; PULSE 60; O2SAT 93; BMI 33.5
== END 2024-09-06 14:42 | disposition home or self-care (01) ==
PROVIDERS: PCP Internal Medicine; Visit Provider Internal Medicine
DX: E11.65 Type 2 diabetes mellitus with hyperglycemia (principal); F33.0 Major depressive disorder, recurrent, mild; I69.354 Hemiplegia and hemiparesis following cerebral infarction affecting left non-dominant side; Z79.4 Long term (current) use of insulin; E78.5 Hyperlipidemia, unspecified; I10 Essential (primary) hypertension; Z23 Encounter for immunization

== ENCOUNTER → 2024-09-06 13:49 | Outpatient (BNVA) | payer OTHER, MEDICARE, SELFPAY | PROVIDERS: PCP Internal Medicine; Visit Provider Internal Medicine | DX: E11.65 Type 2 diabetes mellitus with hyperglycemia (principal); F33.0 Major depressive disorder, recurrent, mild; Z23 Encounter for immunization; E78.5 Hyperlipidemia, unspecified; I10 Essential (primary) hypertension; I69.354 Hemiplegia and hemiparesis following cerebral infarction affecting left non-dominant side; Z79.4 Long term (current) use of insulin; Z79.899 Other long term (current) drug therapy | CPT/HCPCS: 83036; 90471; 90656; 96127 ==

== ENCOUNTER 2024-10-14 11:00 | Outpatient (AMB) | payer OTHER, MEDICARE, SELFPAY ==
--- NOTE | 2024-10-14 11:07 | MHC.OFFVIS ---
Intake Visit Reasons: 6m/PSA(Set) Intake Note: Patient is present for 6M PSA Urology Medication:TERAZOSIN,FINASTERIDE Antibiotic Allergy:NONE Blood Thinner:NONE House Superintendent Required: No Allergies No Known Allergies [No Known Allergies*] Allergy (Verified 10/14/24 11:08) HPI Comments Details: Ruslan is a pleasant Belarusian-speaking male. He is seen for the following urologic conditions - prostate cancer - Lower urinary tract symptoms Belarusian translation in office performed a qualified medical clerk Six-month follow-up PSA 3.0 Continue six-month follow-up Combination therapy for prostate lower urinary tract symptoms Finasteride 5 mg with terazosin 10 mg PSA 04/24 2.7, 08/24 3.1 Prostate Cancer Grade Group 1, low volume initial management active surveillance 11/[address] Rodriguez November 2020 PSA diagnosis 6.6 09/23 ultrasound fusion prostate biopsy targeted all cores negative 04/23 - prostate MRI 1.2 cm left anterior apical PI-RADS 4, organ confined Initial therapy active surveillance with finasteride pT1c Prostate cancer pathology 12/20 Histologic type: Acinar adenocarcinoma [place] score: Marc Grade 3 + 3 = 6 (Parts B and H) LBM 5%, RBM 5% Tumor quantitation: Number cores positive: 2, Total number of cores: 12 % of tissue involved: less than 5% (Part B); 5-10% (Part H) - LVI, PN negative PSA 04/21 3.1, 10/23 2.3, 03/22 1.6, 12/22 2.8 Lower urinary tract symptoms Combination therapy 12/20 - finasteride 5 mg daily, tamsulosin 0.4 mg daily Primary complaint nocturia x3 down from 5-6 [employer] laser performed October 2021 Laboratory investigations include - 12/19 4.4, 07/21 4.5 - 10/22 6.6 [facility] Medical History Mild recurrent major depression Microalbuminuria Bicytopenia Colon polyps Migraines Dyslipidemia Stroke Abdominal hernia BPH w/o urinary obs/LUTS Altered bowel function Elevated PSA Stroke Depression Diabetes HTN (hypertension) Surgical History H/O umbilical hernia repair History of colonoscopy Family History Mother No problems noted. Father Enlarged prostate Social History Household Members: Spouse and Children Housing: Apartment Alcohol intake: former Patient Tobacco Use Status: Never used Tobacco e-Cigarette/Vaping Use: Never Used Second Hand Smoke Exposure: No service: No Current occupational status: unemployed Current occupational exposures/hazards: No Cognitive needs: Yes Hearing needs: No Vision needs: Yes Review of Systems Const Denies chills and Denies fever(s) Card Reports no additional complaints and Denies syncope Resp Denies cough GI Denies abdominal pain and Denies heartburn Reports as per HPI and Denies change in libido Neuro Denies syncope Psych Denies change in libido Endo Denies change in libido Physical Exam Const General: cooperative, healthy appearing, comfortable and no acute distress Orientation/consciousness: patient oriented x3 HEENT Face and sinus: Yes normal facial exam Mouth: moist mucous membranes Neck Neck: Yes normal visual inspection, Yes full ROM and Yes trachea midline Chest Chest palpation & inspection: normal inspection of the chest Resp Effort & Inspection: normal respiratory effort, able to speak in complete sentences and no respiratory distress GI Inspection: Yes normal to inspection Back/Spine/Pelvis Cervical Spine: normal cervical lordosis Thoracic/Lumbar Spine: thoracic and lumbar spine normal to inspection Skin General skin exam: no rashes or lesions noted Neuro General: patient oriented x3, gait normal, tone normal and moves all extremities Extrem General: Yes normal to inspection and Yes capillary refill normal Assessment & Plan Assessment & Plan (1) Elevated PSA: Comment: PSA 6 months Code(s): R97.20 - Elevated prostate specific antigen [PSA] Category: Medical (2) Prostate cancer: Comment: Low volume, low-grade 2020 Code(s): C61 - Malignant neoplasm of prostate Category: Medical Plan Six-month follow-up PSA Orders: Orders Prostate Specific Antigen 6 Months C61 - Malignant neoplasm of prostate Patient Instructions: This note is constructed using voice recognition software. While every effort has been made to ensure accuracy cadworx piping designer errors may have been included. Imaging studies, laboratory and physical exam results were discussed and reviewed in detail. No major barriers to patient understanding were identified. An opportunity to ask questions regarding the treatment plan was provided. All questions were answered. The patient expressed understanding and agreement with the above treatment plan. The patient is aware they should contact our office by phone for worsening of their current condition or the appearance of new urologic symptoms. Compliance is encouraged with any medications and followup testing that is ordered. It is a privilege to participate in the urologic care of your patient. If you have any questions or concerns regarding treatment for the above conditions, or other urologic issues, please do not hesitate to contact me. The office telephone contact is [phone]. Sincerely, Dr Khurram Rodriguez MD, [facility] - Urology Compassionate Specialist Care for the Genitourinary System Coding Level of Care Code Est Pt Level 3 (89050) Diagnoses Elevated PSA R97.20 Prostate cancer C61
--- OUTSIDE RECORDS SUMMARY | 2024-10-14 11:42 | XMS_ITS | Clinical Summary ---
Author Organization [facility] Facility Address [address] [place] [address], [place] [address] Care Team Providers Care Ostrich Farmer Name Role Phone Linnea Ramos MD Primary Care Provider [phone] Allergies No known active allergies Medications amLODIPine (NORVASC) 10 MG tablet TAKE ONE TABLET BY MOUTH DAILY AT 9AM 05/23/2022 Active atorvastatin (LIPITOR) 20 MG tablet TAKE ONE TABLET BY MOUTH DAILY AT 9PM AT BEDTIME 02/28/2022 Active citalopram (CeleXA) 20 MG tablet TAKE ONE TABLET BY MOUTH DAILY AT 9AM 05/27/2022 Active Trulicity 0.75 MG/0.5ML solution pen-injector 05/30/2022 Active enalapril (VASOTEC) 20 MG tablet TAKE ONE TABLET BY MOUTH DAILY AT 9AM 05/27/2022 Active finasteride (PROSCAR) 5 MG tablet TAKE ONE TABLET BY MOUTH DAILY AT 9AM 05/23/2022 Active glipiZIDE (GLUCOTROL) 5 MG tablet 06/05/2022 Active Lantus SoloStar 100 UNIT/ML injection 06/05/2022 Active terazosin (HYTRIN) 5 MG capsule 05/30/2022 Active tamsulosin (FLOMAX) 0.4 MG 24 hr capsule 06/04/2022 Activ e metoprolol tartrate (LOPRESSOR) 50 MG tablet 06/05/2022 Active metFORMIN (GLUCOPHAGE) 500 MG tablet 06/05/2022 Activ e Easy Touch Pen [place] 31G X 8 MM mis USE DIRECTED TO INJECT INSULIN 03/25/2022 Active Empagliflozin (Jardiance) 10 MG tablet Take 10 mg by mouth 1 (one) time each day in the morning Active Active Problems Problem Noted Date Diagnosed Date Chronic kidney disease, stage 2 (mild) 4 Essential (primary) hypertension 06/06/2022 Diabetes mellitus 06/06/2022 Dyslipidemia 06/06/2022 Stage 3a chronic kidney disease 06/06/2022 Proteinuria 06/06/2022 Type 2 diabetes mellitus wit h diabetic chronic kidney disease 06/06/2022 Social History Tobacco Use Types Packs/Day Years Used Date Smoking Tobacco: Never Smokeless Tobacco: Never Tobacco Cessation:Counseling Given: Not Answered Alcohol Use Standard Drinks/Week Comments Never 0 (1 standard drink = 0.6 oz pur e alcohol) Sex and Gender Information Value Date Recorded Sex Assigned at Not on file Legal Sex Male 11:49 AM EDT Gender Identity Not on file Sexual Orientation Not on file Last Filed Vital Signs Vital Sign Reading Time Taken Comments Blood Pressure 128/68 03/29/2024 1:30 PM EDT Pulse 58 03/29/2024 1:30 PM EDT Temperature - - Respiratory Rate - - Oxygen Saturation 97% 03/29/2024 1:30 PM EDT Inhaled Oxygen Concentration - - Weight 85.1 kg (187 lb 9.6 oz) 03/29/2024 1:30 P M EDT Height - - Body Mass Index - - Plan of Treatment Upcoming Encounters Date Type Department Care Team (Late st Contact Info) Description 04/04/2025 1:45 PM EDT Office Visit [facility] [address] [place] [address] Cyril Cottrell MD [address] [facility] [address] [place] [address] Health Maintenance Due Date Last Done Comments Pneumococcal Vaccine: Pediat rics (0 to 5 Years) and At-Risk Patients (6 to 64 Years) (1 of 2 - PCV) 1971 Colorectal Cancer Screening: Annual FOBT 2012 Colorectal Cancer Screening: Colonoscopy 2012 Colorectal Cancer Screening: Sigmoidoscopy 2012 Diabetes: Hemoglobin A1C 06/06/2022 Diabetes: Ophthalmology Exam 06/06/2022 Diabetes: Pedal Pulse Checked 06/06/2022 Diabetes: Sensory Foot Exam 06/06/2022 Diabetes: Visual Foot Exam 06/06/2022 Influenza Vaccine (#1) 2024 Hepatitis B Vaccine Aged Out No longe r eligible based on patient's age to complete this topic Insurance [place] [facility] ([id number]) [place] [facility] ([id number]) Care Teams Ostrich Farmer Relationship Specialty Start Date End Date Linnea Ramos MD [address] [place], [place] PCP - General Internal Medicine 03/25/22
--- OUTSIDE RECORDS SUMMARY | 2024-10-14 11:42 | XMS_ITS | Clinical Summary ---
Author Organization [employer] [facility] Address [address] [place] [address] 7t [place] [address] Care Team Providers Care Ceramic Tiler Name Role Phone Unavailable Primary Care Provider Unavailabl e Social History Tobacco Use Types Packs/Day Years Used Date Smoking Tobacco: Never Assessed Sex and Gender Information Value Date Recorded Sex Assigned at Male 07/01/2022 10:27 AM EDT Legal Sex Male 10:27 AM EDT Gender Identity Male 07/01/2022 10:27 AM EDT Sexual Orientation Don't know 07/01/2022 10 :27 AM EDT Plan of Treatment Health Maintenance Due Date Last Done Comments CT Colonography 1963 Colonoscopy 1963 Colorectal Cancer Screening 1963 Depression Screening 1963 FIT DNA/Cologuard 1963 FIT 1963 FOBT 1963 Lipid Panel 1963 Sigmoidoscopy 1963 Alcohol/Substance Use Screening 1975 Tobacco Screening 1975 DTaP/Tdap/Td Vaccines (1 - Tdap) 1982 Pneumococcal Vaccine: 50+ Ye ars (1 of 1 - PCV) 2013 Zoster Vaccines (1 of 2) 2013 COVID-19 Vaccine ( - 2023-2 5 season) 2024 Influenza Vaccine (#1) 2024 RSV Patients and Pa tients Aged 60 years or older (1 - 1-dose 75+ series) 2038 HIB Vaccines Aged Out No longer eligi ble based on patient's age to complete this topic HPV Vaccines Aged Out No longer eligi ble based on patient's age to complete this topic Hepatitis A Vaccines Aged Out No long er eligible based on patient's age to complete this topic Hepatitis B Vaccines Aged Out No long er eligible based on patient's age to complete this topic IPV Vaccines Aged Out No longer eligi ble based on patient's age to complete this topic Meningococcal Vaccine Aged Out No sarah cr eligible based on patient's age to complete this topic Pneumococcal Vaccine: Pediat rics (0 to 5 Years) and At-Risk Patients (6 to 49) Years) Aged Out No longer eligible b ased on patient's age to complete this topic RSV under 20 months Aged Out No longe r eligible based on patient's age to complete this topic Rotavirus Vaccines Aged Out No longer eligible based on patient's age to complete this topic
--- OUTSIDE RECORDS SUMMARY | 2024-10-14 11:42 | XMS_ITS | Encounter Summary ---
Author Organization [employer] [facility] Address [address] [place] [address] 7 [place] [address] Care Team Providers Care U.[place]. Representative Name Role Phone Unavailable Primary Care Provider Unavailabl e Encounter Details Date Type Department Care Team (Latest Contact Info) Description 06/27/2021 Abstract [facility] CONVERSIONS Dental, Provider, DDS Social History Tobacco Use Types Packs/Day Years Used Date Smoking Tobacco: Never Assessed Sex and Gender Information Value Date Recorded Sex Assigned at Male 07/01/2022 10:27 AM EDT Legal Sex Male 10:27 AM EDT Gender Identity Male 07/01/2022 10:27 AM EDT Sexual Orientation Don't know 07/01/2022 10 :27 AM EDT documented as of this encounter Plan of Treatment Not on file documented as of this encounter Visit Diagnoses Not on filedocumented in this encounter
--- OUTSIDE RECORDS SUMMARY | 2024-10-14 11:42 | XMS_ITS | Encounter Summary ---
Author Organization [facility] Address [address] [place] [address] 7 [place] [address] Care Team Providers Care Waste Machine Operator Name Role Phone Unavailable Primary Care Provider Unavailabl e Encounter Details Date Type Department Care Team (Latest Contact Info) Description 07/03/2020 Abstract [facility] CONVERSIONS Dental, Provider, DDS Social History Tobacco [...]
--- OUTSIDE RECORDS SUMMARY | 2024-10-14 11:42 | XMS_ITS | Encounter Summary ---
Author Organization [facility] Address [address] [place] [address] 7 [place] [address] Care Team Providers Care Appraisal Manager Name Role Phone Unavailable Primary Care Provider Unavailabl e Encounter Details Date Type Department Care Team (Latest Contact Info) Description 01/13/2019 Abstract [facility] CONVERSIONS Dental, Provider, DDS Social [...]
== END 2024-10-14 11:29 | disposition home or self-care (01) ==
PROVIDERS: PCP Internal Medicine; Visit Provider Urology
DX: R97.20 Elevated prostate specific antigen [PSA] (principal); C61 Malignant neoplasm of prostate
CPT/HCPCS: 99213

== ENCOUNTER → 2024-10-14 11:00 | Outpatient (BNVA) | payer OTHER, MEDICARE, SELFPAY | PROVIDERS: PCP Internal Medicine; Visit Provider Urology ==

== ENCOUNTER 2025-01-07 10:53 | Outpatient (REF) | payer OTHER, MEDICAID, SELFPAY ==
--- OUTSIDE RECORDS SUMMARY | 2025-01-07 11:25 | XMS_ITS | Clinical Summary ---
Author Organization [facility] Address [address] [place] [address], [place] [address] Care Team Providers Care Pododermatologist Name Role Phone Linnea Ramos MD Primary Care Provider [phone] Allergies No known active allergies Medications amLODIPine [...] tablet 06/05/2022 Activ e Easy Touch Pen Quitman 31G X 8 MM mis USE DIRECTED [...] Visit [facility] [address] [place] [address] Cyril Cottrell MD [address] [facility] [address] [place] [id number] Health Maintenance Due Date Last Done Comments Pneumococcal Vaccine: 50+ Ye ars (1 of 2 - PCV) 1982 Colorectal Cancer Screening: Annual FOBT 2012 Colorectal Cancer Screening: Colonoscopy 2012 Colorectal Cancer Screening: Sigmoidoscopy 2012 Diabetes: Hemoglobin A1C 06/06/2022 Diabetes: Ophthalmology Exam 06/06/2022 Diabetes: Pedal Pulse Checked 06/06/2022 Diabetes: Sensory Foot Exam 06/06/2022 Diabetes: Visual Foot Exam 06/06/2022 Influenza Vaccine (Season Ended) 2025 Hepatitis B Vaccine Aged Out No longe r eligible based on patient's age to complete this topic Insurance Medicaid ID [facility] PPO ([id number]) Medicaid ID [facility] PPO ([id number]) Care Teams Pododermatologist Relationship Specialty Start Date End Date Linnea Ramos MD [address] [place], [place] PCP - General Internal Medicine 03/25/22
[2025-01-07 12:13] LABS: Alanine Aminotransferase 30 U/L (0-40); Albumin Level 4.1 g/dL (3.5-5.0); Alkaline Phosphatase 50 U/L (39-117); Anion Gap 9 (12-20); Aspartate Amino Transferase 23 U/L (5-37); Bilirubin Total 0.9 mg/dL (0.0-1.0); Blood Urea Nitrogen 9 mg/dL (9-16); Calcium 9.2 mg/dL (8.4-10.2); Carbon Dioxide 30 mmol/L (22-29); Chloride 102 mmol/L (96-108); Cholesterol 128 mg/dL (<200); Estimated Glomerular Filt Rate > 60; Glucose Fasting 86 mg/dL (60-99); HDL Cholesterol 40 mg/dL (>40); LDL Cholesterol Calculated 76 mg/dL (<100); Potassium 3.4 mmol/L (3.3-5.1); Sodium 138 mmol/L (135-145); Total Protein 7.3 g/dL (6.5-8.0); Triglycerides 62 mg/dL (<150)
[2025-01-07 12:27] LABS: Creatinine Urine 76.41 mg/dL; Microalbum/Creatinine Ratio Ur 107.3 ug/mg cr (<30)
[2025-01-07 12:30] LABS: Vitamin D 25-OH Total 52.2 ng/mL (>30)
== END 2025-01-07 10:54 | disposition home or self-care (01) ==
LOC: HO.10HDL 10:53
PROVIDERS: Visit Provider Internal Medicine
DX: E11.65 Type 2 diabetes mellitus with hyperglycemia (principal); R80.9 Proteinuria, unspecified; E78.5 Hyperlipidemia, unspecified; E55.9 Vitamin D deficiency, unspecified; Z79.4 Long term (current) use of insulin
CPT/HCPCS: 36415; 80053; 80061; 82043; 82306; 82570

== ENCOUNTER 2025-01-12 10:44 | Emergency (ER) | payer OTHER, MEDICAID, SELFPAY ==
--- NOTE | ~2025-01-12 | XR_ITS ---
EXAMINATION: XR ELBOW 1-2 VIEWS LEFT HISTORY: fall landing on L side COMPARISON: There are no prior studies available for comparison. FINDINGS: AP and lateral views of the left elbow are submitted. The examination is limited by difficulty in patient positioning. Osseous mineralization is normal. No fracture or dislocation is seen, although evaluation of the radial head and neck is limited. The joint spaces are preserved. The soft tissues are unremarkable. No joint effusion is seen. XR/XR elbow LT 2V IMPRESSION: No fracture is seen, although evaluation is limited by difficulty in patient positioning, particularly in evaluating the radial head and neck. Electronically signed by: Jesus Chavez MD 01/12/2025 11:21 AM EDT
--- NOTE | ~2025-01-12 | XR_ITS ---
EXAMINATION: XR RIBS, LEFT CLINICAL INFORMATION: fall landing on L side COMPARISON: None available. TECHNIQUE: 3 views of the left ribs were obtained. FINDINGS: Lungs are clear. No consolidation, pneumothorax, or pleural effusion. The cardiomediastinal silhouette and pulmonary vasculature are normal. Osseous structures are unremarkable. Multiple views of left ribs reveal no visible rib fracture.. No fractures are identified. XR/XR ribs LT min 3V w CXR1V IMPRESSION: Unremarkable chest and left ribs. Electronically signed by: Aramis Moore MD 01/12/2025 11:24 AM EDT
[2025-01-12 10:45] VITALS: BP 146/74; PULSE 76; RESP 16; TEMP 36.7; O2SAT 97; BMI 32.1
--- NOTE | 2025-01-12 11:27 | ED.GENADULT ---
HPI - General Adult General Chief complaint: Fall Stated complaint: L Side Pain Fall Time Seen by Provider: 01/12/25 11:27 History of Present Illness ED Provider: Madeleine MÁRQUEZ narrative: The patient is a 59-year-old male with a history of a stroke that has left him with left-sided weakness. His left arm is most affected. He says that he was walking on an uneven sidewalk yesterday when he lost his balance and fell onto his left side. He did not hit his head when he fell. he landed mostly on the left chest. He says that he was with his helped him up with the assistance of a bystander. This was around 02:00 yesterday afternoon. Since then he has had pain on the left side of his chest that his bothered him. He says he took some acetaminophen which seemed to help but he thought he ought to get his injury checked today. He has no headache, no neck pain, no abdominal pain, no nausea, no vomiting, no change in bowel habits. He says he ate a meal normally this morning without difficulty. He says that he landed on his left elbow was well as his left chest but his elbow does not hurt as much as his chest hurts. He is more comfortable standing than sitting. Related Data Home Medications ?Medication ?Instructions ?Recorded ?Confirmed pen needle, diabetic 31 gauge x #50 ea 09/12/20 09/06/24/ latanoprost 0.005 % eye drops 1 drp ophthalmic (eye) DAILY 11/28/20 09/06/24 Previous Rx's ?Medication ?Instructions ?Recorded dorzolamide 22.3 mg-timolol 6.8 1 drp ophthalmic (eye) BID #10 mL 06/04/21 mg/mL eye drops pen needle, diabetic 31 gauge x #100 ea 04/04/22 5/16 flash glucose sensor (FreeStyle #1 ea 08/06/23 Yusuf 14 Day Sensor kit) psyllium 1 tbsp PO DAILY 60 days #300 grams 12/08/23 simethicone 125 mg chewable tablet 125 mg PO TID PRN abdominal 12/08/23 (Gas Relief (simethicone)) distention 30 days #90 tabs lubiprostone 8 mcg capsule 8 mcg PO BID #60 caps 01/27/24 amlodipine 10 mg tablet 10 mg PO DAILY 90 days #90 tabs 09/06/24 atorvastatin 80 mg tablet 80 mg PO BEDTIME 90 days #90 tabs 09/06/24 cholecalciferol (vitamin D3) 50 50 mcg PO DAILY 90 days #90 caps 09/06/24 mcg (2,000 unit) capsule (Vitamin D3) citalopram 20 mg tablet 20 mg PO DAILY 90 days #90 tabs 09/06/24 empagliflozin 25 mg tablet 25 mg PO DAILY 90 days #90 tabs 09/06/24 (Jardiance) enalapril maleate 20 mg tablet 20 mg PO DAILY 90 days #90 tabs 09/06/24 insulin degludec 100 unit/mL (3 22 unit (0.22 mL) subcut BID 90 09/06/24 mL) subcutaneous pen (Tresi days #39.6 mL FlexTouch U-100 insulin) metformin 500 mg tablet 500 mg PO BID 90 days #180 tabs 09/06/24 metoprolol tartrate 50 mg tablet 50 mg PO BID 90 days #180 tabs 09/06/24 finasteride 5 mg tablet 5 mg PO DAILY 90 days #90 tabs 10/14/24 terazosin 5 mg capsule 5 mg PO BEDTIME 90 days #90 caps 10/14/24 Allergies Allergy/AdvReac Type Severity Reaction Status Date / Time No Known Allergies Allergy Verified 01/12/25 10:49 [No Known Allergies*] Review of Systems Review of Systems: Yes all other systems are reviewed and are negative PMFSH Past Medical History Medical History Mild recurrent major depression Microalbuminuria Bicytopenia Colon polyps Migraines Dyslipidemia Stroke Abdominal hernia BPH w/o urinary obs/LUTS Altered bowel function Elevated PSA Stroke Depression Diabetes HTN (hypertension) Surgical History H/O umbilical hernia repair History of colonoscopy Family History Family History Mother No problems noted. Father Enlarged prostate Social History Social History Household Members: Spouse and Children Housing: Apartment Alcohol intake: former Patient Tobacco Use Status: Never used Tobacco e-Cigarette/Vaping Use: Never Used Second Hand Smoke Exposure: No Advance Directives: No Advance Directives Information Provided: Yes service: No Current occupational status: unemployed Current occupational exposures/hazards: No Cognitive needs: Yes Hearing needs: No Vision needs: Yes Physical Exam ED Vital Signs: Vital Signs - 24 hr 01/12/25 10:45 Temperature 98.1 F Pulse Rate 76 Respiratory Rate 16 Blood Pressure 146/74 H Pulse Oximetry 97 Oxygen Delivery Method Room Air BMI result Body Mass Index 32.1 Const Other: The patient is a 59-year-old male who was awake and alert. He is pleasant and cooperative. He looks somewhat chronically ill with obvious limited function of the left arm which seems slightly atrophied and which he holds chronically bent. He does not appear in obvious discomfort or any respiratory difficulty. HENMT Other: No signs of trauma to the head or the face Eyes General: appearance normal, both eyes and all related structures Neck Other: no posterior midline C-spine tenderness. He moves his neck easily without pain. His C-spine is clinically clear. Neck: Yes no JVD Chest Other: There is left-sided chest wall tenderness without crepitus or subcutaneous emphysema Resp Effort & Inspection: normal respiratory effort Auscultation: clear to auscultation bilaterally Cardio Rate: regular rate Rhythm: regular rhythm Heart sounds: S1 normal heart sound present and S2 normal heart sound present GI Other: abdomen is soft and nontender Skin Other: skin is intact Neuro Other: the patient is awake and alert with a normal mental status. Face is symmetrical. Eye movements are intact. Speech seems clear. He has normal function of the right arm. The left arm seems chronically weak and somewhat contracted with the left elbow being chronically bent. He walks with a limp, apparently because of some mild weakness of the left leg. Extrem Other: The patient's left arm is somewhat atrophied and the elbow is somewhat contracted and chronically bent. No acute deformity or soft tissue swelling or significant tenderness. Medical Decision Making Medical Decision Making MDM Narrative: The patient is a very pleasant 59-year-old male who had a mechanical fall yesterday when he fell onto the sidewalk. He describes being on a somewhat uneven brick sidewalk. He did not hit his head. He landed on his left side with his left arm against his chest. His primary complaint is left chest pain. He has a negative x-ray of his left elbow and he also has a negative chest x-ray with left ribs. Clinically I do not have a very high suspicion for occult rib fractures. He does not appear severely ill or injured. His abdomen is soft and he has no abdominal complaints. The patient is reassured that he does not seem to have any dangerous injuries. He should continue to use acetaminophen as needed. He should return if worse or otherwise follow up with his regular doctor. Discharge Plan Discharge Clinical Impression: Contusion of left chest wall Patient Disposition: Home, Self-Care Additional Instructions: The x-rays of your elbow, your ribs, and your chest do not show any broken bones or broken ribs or injury to your lungs. I think you have bruised the left side of your chest. Please continue to use acetaminophen ( Tylenol) as needed for pain. Please follow up with your regular doctor next week if still feeling uncomfortable. Return to the emergency room if you feel significantly worse in any way, especially if you become short of breath or if you develop a fever or if you develop abdominal pain, nausea, or vomiting. Prescriptions: No Action dorzolamide-timolol 22.3-6.8 mg/mL drops 1 drp ophthalmic (eye) BID Qty: 10 3RF (DME) pen needle, diabetic 31 gauge x 5/16 needle See Rx Instructions .ROUTE .MEDSUPPLY Qty: 100 3RF Rx Instructions: USE 2 TIMES DAILY lubiprostone 8 mcg capsule 8 mcg PO BID Qty: 60 0RF psyllium Powder 1 tbsp PO DAILY 60 Days Qty: 300 2RF Rx Instructions: mix into at least 8 oz of water or juice before administering simethicone [Gas Relief (simethicone)] 125 mg tablet,chewable 125 mg PO TID PRN (Reason: abdominal distention) 30 Days Qty: 90 3RF (DME) FreeStyle Yusuf 14 Day Sensor Kit See Rx Instructions .Route Qty: 1 11RF Rx Instructions: As directed (DME) pen needle, diabetic 31 gauge x 3/16 needle See Rx Instructions subcut .MEDSUPPLY Qty: 50 Rx Instructions: As directed latanoprost 0.005 % drops 1 drp ophthalmic (eye) DAILY finasteride 5 mg tablet 5 mg PO DAILY 90 Days Qty: 90 1RF terazosin 5 mg capsule 5 mg PO BEDTIME 90 Days Qty: 90 1RF amlodipine 10 mg tablet 10 mg PO DAILY 90 Days Qty: 90 1RF atorvastatin 80 mg tablet 80 mg PO BEDTIME 90 Days Qty: 90 1RF cholecalciferol (vitamin D3) [Vitamin D3] 50 mcg (2,000 unit) capsule 50 mcg PO DAILY 90 Days Qty: 90 1RF citalopram 20 mg tablet 20 mg PO DAILY 90 Days Qty: 90 1RF Jardiance 25 mg tablet 25 mg PO DAILY 90 Days Qty: 90 1RF enalapril maleate 20 mg tablet 20 mg PO DAILY 90 Days Qty: 90 1RF insulin degludec [Tresiba FlexTouch U-100] 100 unit/mL (3 mL) insulin pen 22 unit subcut BID 90 Days Qty: 39.6 1RF metformin 500 mg tablet 500 mg PO BID 90 Days Qty: 180 1RF metoprolol tartrate 50 mg tablet 50 mg PO BID 90 Days Qty: 180 3RF Print Language: Indonesian
[2025-01-12 11:59] VITALS: BP 146/74; PULSE 76; RESP 16; TEMP 36.7; O2SAT 97
--- OUTSIDE RECORDS SUMMARY | 2025-01-12 12:25 | XMS_ITS | Clinical Summary ---
Author Organization [facility] Address [address] [place] [address], [place] [address] Care Team Providers Care Director Post Name Role Phone Linnea Ramos MD Primary Care Provider [phone] Allergies No known active allergies Medications amLODIPine [...] tablet 06/05/2022 Activ e Easy Touch Pen Herrin 31G X 8 MM mis USE DIRECTED [...] Visit [facility] [address] [place] [address] Cyril Cottrell MD [address] [facility] [address] [place] [phone] Health Maintenance Due Date Last Done Comments [...] age to complete this topic Insurance [place] [facility] P[place] ([id number]) [place] [facility] P[place] ([id number]) Care Teams Director Post Relationship Specialty Start Date End Date Linnea Ramos MD [address] [place], [place] PCP - General Internal Medicine 03/25/22
--- OUTSIDE RECORDS SUMMARY | 2025-01-12 12:26 | XMS_ITS | Clinical Summary ---
Author Organization [employer] Address [address] [facility] 7t [place] [address] Care Team Providers Care Knitting Supervisor Name Role Phone Unavailable Primary Care Provider [...]
--- OUTSIDE RECORDS SUMMARY | 2025-01-12 12:26 | XMS_ITS | Encounter Summary ---
Author Organization [facility] Address [address] [place] [address] 7 [place] [address] Care Team Providers Care Vest Presser Name Role Phone Unavailable Primary Care Provider Unavailabl e Encounter Details Date Type Department Care Team (Latest Contact Info) Description 07/03/2020 Abstract [facility] CONVERSIONS Dental, Provider, DDS Social History Tobacco [...]
--- OUTSIDE RECORDS SUMMARY | 2025-01-12 12:26 | XMS_ITS | Encounter Summary ---
Author Organization [facility] Address [address] [place] [address] 7 [place] [address] Care Team Providers Care Pneumatic Deicer Inspector Name Role Phone Unavailable Primary Care Provider Unavailabl e Encounter Details Date Type Department Care Team (Latest Contact Info) Description 01/13/2019 Abstract [facility] CONVERSIONS Dental, Provider, DDS Social History [...]
--- OUTSIDE RECORDS SUMMARY | 2025-01-12 12:26 | XMS_ITS | Encounter Summary ---
Author Organization [facility] Address [address] [facility] 7 [place] [address] Care Team Providers Care Director Of Graduate Medical Education Name Role Phone Unavailable Primary Care Provider Unavailabl e Encounter Details Date Type Department Care Team (Latest Contact Info) Description 06/27/2021 Abstract [facility] CONVERSIONS Dental, Provider, DDS Social History [...]
== END 2025-01-12 12:01 | disposition home or self-care (01) ==
PROVIDERS: Emergency Provider Emergency Medicine; PCP Internal Medicine
DX: S20.212A Contusion of left front wall of thorax, initial encounter (principal); M25.522 Pain in left elbow; X58.XXXA Exposure to other specified factors, initial encounter; Y93.9 Activity, unspecified; Y92.9 Unspecified place or not applicable; Y99.8 Other external cause status; R07.89 Other chest pain
CPT/HCPCS: 71101; 73070; 99282; 99283

== ENCOUNTER → 2025-01-12 11:00 | Outpatient (BNV) | payer OTHER, MEDICAID, SELFPAY | PROVIDERS: Emergency Provider Emergency Medicine; PCP Internal Medicine; Visit Provider Radiology Diagnostic Radiology | DX: R10.32 Left lower quadrant pain (principal); M25.522 Pain in left elbow | CPT/HCPCS: 71101; 73070 ==

== ENCOUNTER 2025-01-13 13:47 | Outpatient (AMB) | payer OTHER, MEDICAID, SELFPAY ==
--- NOTE | 2025-01-13 13:50 | MHC.PC.OV ---
Vital Signs 01/13/25 13:52 Height 5 ft 4 in Weight 189 lb BMI 32.4 BP 132/62 Blood Pressure Location Rt brachial Position Sitting Intake Visit Reasons: Annual Exam - see comments Intake Note: Patient here for a physical exam Systems Security Analyst Required: No Accompanied by: Spouse Allergies No Known Allergies [No Known Allergies*] Allergy (Verified 01/13/25 14:01) Medication List - Last Reconciled 01/13/25 by Linnea Subramanian MD amlodipine 10 mg PO DAILY 90 days atorvastatin 80 mg PO BEDTIME 90 days cholecalciferol (vitamin D3) (Vitamin D3) 50 mcg PO DAILY 90 days citalopram 20 mg PO DAILY 90 days dorzolamide-timolol 22.3-6.8 mg/mL 1 drp ophthalmic (eye) BID empagliflozin (Jardiance) 25 mg PO DAILY 90 days enalapril maleate 20 mg PO DAILY 90 days finasteride 5 mg PO DAILY 90 days flash glucose sensor (FreeStyle Yusuf 14 Day Sensor kit) As directed insulin degludec (Tresiba FlexTouch U-100 insulin) 22 units (0.22 mL) subcut BID 90 days latanoprost 0.005% 1 drp ophthalmic (eye) DAILY lubiprostone 8 mcg PO BID metformin 500 mg PO BID 90 days metoprolol tartrate 50 mg PO BID 90 days pen needle, diabetic USE 2 TIMES DAILY pen needle, diabetic As directed psyllium 1 tbsp PO DAILY 60 days simethicone (Gas Relief (simethicone)) 125 mg PO TID PRN 30 days terazosin 5 mg PO BEDTIME 90 days Tobacco use date assessed: 09/06/24 Dental Screening Dental Screen Date: 01/13/25 Did you have a dental visit in the last 12 months?: No Did you have a dental problem in the last 6 months where you did not have access to dental care?: No Was dental information given to patient?: Patient has dentist HPI HPI Comments History of Present Illness Details The patient is a 59-year-old male presenting for an annual physical examination. His Type 2 Diabetes Mellitus is currently suboptimally controlled with a hemoglobin A1c of 7.9%. His hypertension, however, is better managed, with recent blood pressure readings at 132/62 mmHg. He also manages his hyperlipidemia with atorvastatin, achieving near-goal LDL levels. He has a history of a stroke in 2008, resulting in chronic left hemiplegia, with ongoing weakness in the left arm. His depression with anxiety is stable on citalopram, with no current symptoms reported. Renal function has improved, with a creatinine level of 54 mg/dL. He also manages benign prostatic hyperplasia with finasteride and terazosin. The patient denies alcohol or tobacco use and has a history of an umbilical hernia repair. Recent procedures include a 2021 colonoscopy showing hyperplastic polyps. Vaccinations reviewed show the tetanus vaccine is due. He maintains relationships with several specialists including urology and ophthalmology. - Colonoscopy performed in 2021 with findings of hyperplastic polyps - LDL cholesterol level at 76 mg/dL, nearing target - Renal function noted with creatinine level at 54 mg/dL, indicating improvement - Tetanus vaccination is due [facility] Medical History Mild recurrent major depression Microalbuminuria Bicytopenia Colon polyps Migraines Dyslipidemia Stroke Abdominal hernia BPH w/o urinary obs/LUTS Altered bowel function Elevated PSA Stroke Depression Diabetes HTN (hypertension) Surgical History H/O umbilical hernia repair History of colonoscopy Family History Mother No problems noted. Father Enlarged prostate Social History Household Members: Spouse and Children Housing: Apartment Alcohol intake: former Patient Tobacco Use Status: Never used Tobacco e-Cigarette/Vaping Use: Never Used Second Hand Smoke Exposure: No service: No Current occupational status: unemployed Current occupational exposures/hazards: No Cognitive needs: Yes Hearing needs: No Vision needs: Yes Questionnaire PHQ-9 Over the last 2 weeks, how often have you been bothered by any of the following problems? 1. Little interest or pleasure in doing things: not at all 2. Feeling down, depressed, or hopeless: not at all 3. Trouble falling or staying asleep, or sleeping too much: not at all 4. Feeling tired or having little energy: not at all 5. Poor appetite or overeating: not at all 6. Feeling bad about yourself - or that you are a failure or have let yourself or your family down: not at all 7. Trouble concentrating on things, such as reading the newspaper or watching television: not at all 8. Moving or speaking so slowly that other people could have noticed. Or the opposite - being so fidgety or restless that you have been moving around a lot more than usual: not at all 9. Thoughts that you would be better off or of hurting yourself in some way: not at all Total score: 0 Depression Screening Interpretation: Negative Depression Screening Done: Yes 13731 - PHQ-9 Billing: Yes Source: Developed by Drs. Jesus Cox, Latisha Guaman, Bill Adams and colleagues, with an educational rene from [employer]. Thrive Questionnaire Date Thrive assessed: 01/13/25 I am a: Patient What is your living situation today?: I have a steady place to live Within the past 12 months, did the food you bought not last and you didn't have the money to get more?: Never true Within the past 12 months, did you worry whether your food would run out before you got money to buy more?: Never true Do you have trouble paying for medicines?: No Do you have trouble getting transportation to medical appointments?: No Do you have trouble paying your heating and electricity bill?: No Do you have trouble taking care of your child, family member or friend?: No Do you have trouble with day-to-day activities such as bathing, preparing meals, shopping, managing finances, etc.?: No Are you currently unemployed and looking for a job?: Yes Are you interested in more education?: No Please select the resources that you would like help with: None Currently or been in a relationship where the following occur: No concerns reported THRIVE Score: 0 AUDIT C Alcohol Use Questionnaire (AUDIT-C) 1. How often do you have a drink containing alcohol?: Never Total Score: 0 Score Reviewed/Action Taken: No CORAL-7 AMB Questionnaire CORAL-7 Date CORAL - 7 assessed: 01/13/25 Feeling nervous, anxious, or on edge: 0 = Not at all Not being able to stop or control worryin = Not at all Worrying too much about different things: 0 = Not at all Trouble relaxin = Not at all Being so restless that it is hard to sit still: 0 = Not at all Becoming easily annoyed or irritable: 0 = Not at all Feeling afraid as if something awful might happen: 0 = Not at all Total CORAL-7 score (0-4 normal; 5-9 mild; 10-14 moderate; 15-21 severe): 0 Source: Developed by Drs. Jesus Cox, Latisha Guaman, Bill Adams and colleagues, with an educational rene from [employer]. CORAL-7 Assessment Billing CORAL-7 Assessment Tool: CORAL-7 Assessment 05550 Review of Systems Const All systems reviewed & are unremarkable except as noted in HPI and below Card Denies chest pain at rest, Denies chest pain with activity, Denies edema, Denies irregular heart rhythm, Denies claudication, Denies dyspnea, Denies dyspnea on exertion, Denies orthopnea, Denies paroxysmal nocturnal dyspnea and Denies slow heart rate Resp Denies cough, Denies dyspnea and Denies dyspnea on exertion GI Denies abdominal pain, Denies change in bowel habits, Denies excessive flatus, Denies nausea and Denies vomiting Neuro Reports focal weakness Physical exam (Primary Care) Vital Signs: Last Vital Signs BP 132/62 01/13/25 13:52 BMI result Body Mass Index 32.4 Tobacco/Smoking Status: Tobacco use Status Tobacco use date assessed 09/06/24 01/13/25 13:59 Patient Tobacco Use Status Never used Tobacco 01/13/25 13:59 e-Cigarette/Vaping Use Never Used 01/13/25 13:59 PHQ-9: PHQ-9 Score PHQ-9: Total score 0 01/13/25 14:06 Depression Screening Interpretation: Negative Thrive Assessment: Date of Thrive Assessment Date Thrive assessed 01/13/25 01/13/25 13:59 Currently or been in a relationship where the following occur: No concerns reported HENMT Head: Yes normal to inspection, Yes normocephalic and Yes atraumatic Ears: external ears normal Eyes General: appearance normal, both eyes and all related structures Eyelids: Yes eyelids normal Conjunctivae: conjunctivae normal Neck Neck: Yes normal visual inspection and Yes supple Resp Effort & Inspection: normal respiratory effort Auscultation: clear to auscultation bilaterally Cardio Jugular venous distension: no JVD Rate: regular rate Rhythm: regular rhythm Heart sounds: S1 normal heart sound present and S2 normal heart sound present GI Inspection: Yes normal to inspection Palpation (GI): Soft to palpation and nontender Auscultation: normal bowel sounds Skin General skin exam: no rashes or lesions noted Neuro Other: left hemiplegia upper limb General: no focal motor deficits Extrem General: Yes full ROM Psych Appearance: grossly normal Results AMB Hemoglobin A1c AMB Hemoglobin A1c 7.9 % Last Edit by JIM Houston on 01/13/25 14:02 Immunizations Boostrix Tdap 2.5 Lf unit-8 mcg-5 Lf/0.5 mL intramuscular syringe Performing Provider: Linnea Subramanian MD [facility] Administered by: JIM Houston on 01/13/25 14:20 Dose Route Admin Location Dispensed Lot Number Expiration Date NDC Hospitality Intern 0.5 mL IM Right Deltoid 0.5 mL [id number] 04/27/27 [id number] Vericept VIS Given Date VIS Provided VIS Publication Date 01/13/25 Single Vaccine 24 Eligibility Eligibility Date Funding Source Not [facility] Eligible 01/13/25 Private Results Reviewed Results Reviewed: Laboratory Last Values Hgb A1c (Clinic) 7.9 % (4.0-6.0) H 01/13/25 13:50 Coding Level of Care Code Est Pt Level 3 (96922) Est Pt Prev Care 40-64y(79162) Diagnoses Physical exam Z00.00 Mild recurrent major depression F33.0 Type 2 diabetes mellitus with hyperglycemia, with long-term current use of insulin E11.65; Z79.4 Diabetes mellitus type: type 2 Diabetes mellitus prison insulin use: with keno terminal operator use Diabetes mellitus complication status: with hyperglycemia Stroke I63.9 Rash R21 Additional Codes PHQ-9 - 05067 - PHQ-9 Billing: Yes ([id number]) CORAL-7 Assessment Billing - CORAL-7 Assessment Tool: CORAL-7 Assessment 20270 ([id number]) Time Spent (min) 33 Assessment & Plan Assessment & Plan (1) Physical exam: Code(s): Z00.00 - Encounter for general adult medical examination without abnormal findings Category: Medical (2) Mild recurrent major depression: Code(s): F33.0 - Major depressive disorder, recurrent, mild Category: Medical (3) Diabetes: Code(s): E11.9 - Type 2 diabetes mellitus without complications Category: Medical Qualifiers: Diabetes mellitus type: type 2 Diabetes mellitus prison insulin use: with keno terminal operator use Diabetes mellitus complication status: with hyperglycemia Qualified Code(s): E11.65 - Type 2 diabetes mellitus with hyperglycemia; Z79.4 - manager intermediate (current) use of insulin (4) Stroke: Comment: 2009 was left with left sided paralysis Code(s): I63.9 - Cerebral infarction, unspecified Category: Medical (5) Rash: Code(s): R21 - Rash and other nonspecific skin eruption Category: Medical Plan We will maintain current diabetes management with Jardiance and aim for improved A1c control. The patient's hypertension and hyperlipidemia are well-managed with existing medications. We will monitor his left-side weakness and ongoing depression remission on citalopram. Administer the tetanus vaccination today addressing the overdue status. Continue current therapies for glaucoma and benign prostatic hyperplasia and maintain regular specialist reviews. Patient was informed and verbally consented to the use of an ambient scribe for clinic note documentation during this visit. I discussed the stability in hypertension and hyperlipidemia management while emphasizing the importance of improved glycemic control. We agreed to continue with his current medications and discussed the necessity of lifestyle modifications to address the elevated A1c. I advised administering the due tetanus vaccination during today's visit. I confirmed the importance of regular follow-ups with his specialists and maintaining the current therapeutic regime for glaucoma and prostatic issues. Orders: Orders AMB Hemoglobin A1c Today E11.65 - Type 2 diabetes mellitus with hyperglycemia, Z79.4 - manager intermediate (current) use of insulin TDaP Immunization Today Z23 - Encounter for immunization Medications: New Boostrix Tdap (diphth,pertus(acell),tetanus) 0.5 mL IM ONCE 0.5 mL 0RF NS Z23 - Encounter for immunization hydrocortisone 1% (Anti-Itch (hydrocortisone)) 1 appl topical TID 2 weeks PRN 28.4 grams 1RF skin irritation Patient Instructions: - Continue prescribed medications as directed - Follow lifestyle modifications to improve blood sugar levels - Receive tetanus vaccine today - Follow up regularly with specialists - Monitor any changes in left arm weakness and report - Continue follow-up visits as scheduled
[2025-01-13 13:52] VITALS: BP 132/62; BMI 32.4
--- OUTSIDE RECORDS SUMMARY | 2025-01-13 14:28 | XMS_ITS | Encounter Summary ---
Author Organization [facility] Address [address] [place] [address] 7 [place] [address] Care Team Providers Care Centrifugal Wax Molder Name Role Phone Unavailable Primary Care Provider Unavailabl e Encounter Details Date Type Department Care Team (Latest Contact Info) Description 07/03/[address] [facility] CONVERSIONS Dental, Provider, DDS Social History [...]
--- OUTSIDE RECORDS SUMMARY | 2025-01-13 14:28 | XMS_ITS | Clinical Summary ---
Author Organization [facility] Address [address] [place] [address], [place] [address] Care Team Providers Care Sessions Clerk Name Role Phone Linnea Ramos MD Primary Care Provider [phone] Allergies No known active allergies Medications amLODIPine [...] tablet 06/05/2022 Activ e Easy Touch Pen Villard 31G X 8 MM mis USE DIRECTED [...] Visit [facility] [address] [place] [address] Cyril Cottrell MD [address] [facility] [address] [place] [id number] Health Maintenance Due Date Last Done Comments [...] age to complete this topic Insurance Medicaid [place] [facility] PPO ([id number]) [place] [facility] PPO ([id number]) Care Teams Sessions Clerk Relationship Specialty Start Date End Date Linnea Ramos MD [address] [place], [place] PCP - General Internal Medicine 03/25/22
--- OUTSIDE RECORDS SUMMARY | 2025-01-13 14:28 | XMS_ITS | Encounter Summary ---
Author Organization [facility] Address [address] [place] [address] 7 [place] [address] Care Team Providers Care Furnace Feeder Name Role Phone Unavailable Primary Care Provider Unavailabl e Encounter Details Date Type Department Care Team (Latest Contact Info) Description 01/13/2019 Abstract [facility] CONVERSIONS Dental, Provider, DDS Social History [...]
--- OUTSIDE RECORDS SUMMARY | 2025-01-13 14:29 | XMS_ITS | Encounter Summary ---
Author Organization [employer] [facility] Address [address] [place] [address] 7 [place] [address] Care Team Providers Care Sheep And Wheat Farmer Name Role Phone Unavailable Primary Care Provider Unavailabl e Encounter Details Date Type Department Care Team (Latest Contact Info) Description 06/27/[address] [facility] CONVERSIONS Dental, Provider, DDS Social History [...]
--- OUTSIDE RECORDS SUMMARY | 2025-01-13 14:29 | XMS_ITS | Clinical Summary ---
Author Organization [employer] Address [address] [place] [address] 7t [place] [address] Care Team Providers Care Shoulder Sawyer Name Role Phone Unavailable Primary Care Provider [...]
== END 2025-01-13 14:20 | disposition home or self-care (01) ==
LOC: HO.HMCH 13:48
PROVIDERS: PCP Internal Medicine; Visit Provider Internal Medicine
DX: Z00.00 Encounter for general adult medical examination without abnormal findings (principal); E11.65 Type 2 diabetes mellitus with hyperglycemia; Z79.4 Long term (current) use of insulin; I63.9 Cerebral infarction, unspecified; F33.0 Major depressive disorder, recurrent, mild; R21 Rash and other nonspecific skin eruption; Z23 Encounter for immunization

== ENCOUNTER → 2025-01-13 13:47 | Outpatient (BNVA) | payer MEDICARE, SELFPAY | PROVIDERS: PCP Internal Medicine; Visit Provider Internal Medicine | DX: Z00.00 Encounter for general adult medical examination without abnormal findings (principal); Z23 Encounter for immunization; F33.0 Major depressive disorder, recurrent, mild; E11.65 Type 2 diabetes mellitus with hyperglycemia; Z79.4 Long term (current) use of insulin; I63.9 Cerebral infarction, unspecified; R21 Rash and other nonspecific skin eruption | CPT/HCPCS: 83036; 90471; 90715; 96127 ==

== ENCOUNTER 2025-04-08 08:27 | Outpatient (REF) | payer OTHER, MEDICAID, SELFPAY ==
--- OUTSIDE RECORDS SUMMARY | 2025-04-08 08:40 | XMS_ITS | Encounter Summary ---
Author Organization [facility] Address [address] [facility] 7 [place] [address] Care Team Providers Care Bakery Technician Name Role Phone Unavailable Primary Care Provider Unavailabl e Encounter Details Date Type Department Care Team (Latest Contact Info) Description 01/13/2019 Abstract [facility] CONVERSIONS Dental, Provider, DDS Social History [...]
--- OUTSIDE RECORDS SUMMARY | 2025-04-08 08:40 | XMS_ITS | Clinical Summary ---
Author Organization [facility] Address [address] [place] [address], [place] [address] Care Team Providers Care Right Of Way Agent Name Role Phone Linnea Ramos MD Primary Care Provider [phone] Allergies No known active allergies Medications amLODIPine [...] tablet 06/05/2022 Activ e Easy Touch Pen Vonore 31G X 8 MM mis USE DIRECTED [...] Care Team (Late st Contact Info) Description 04/11/2025 1:45 PM EDT Office Visit [facility] [address] [place] [address] Cyril Cottrell MD [address] [facility] [address] [place] [phone] Health Maintenance Due Date Last Done Comments Pneumococcal Vaccine: 50+ Ye ars (1 of 2 - PCV) 1982 Colorectal Cancer Screening: Annual FOBT 2012 Colorectal Cancer Screening: Colonoscopy 2012 Colorectal Cancer Screening: Sigmoidoscopy 2012 Diabetes: Hemoglobin A1C 06/06/2022 Diabetes: Ophthalmology Exam 06/06/2022 Diabetes: Pedal Pulse Checked 06/06/2022 Diabetes: Sensory Foot Exam 06/06/2022 Diabetes: Visual Foot Exam 06/06/2022 Influenza Vaccine (#1) 2025 Hepatitis B Vaccine Aged Out No longe r eligible based on patient's age to complete this topic Insurance Medicaid [place] [employer] Medicare Care Teams Right Of Way Agent Relationship Specialty Start Date End Date Linnea Ramos MD [address] [place] [address] PCP - General Internal Medicine 03/25/22
[2025-04-08 11:30] LABS: Prostate Specific Antigen 3.02 ng/mL (<0.05-4.0)
== END 2025-04-08 08:28 | disposition home or self-care (01) ==
LOC: HO.10HDL 08:27
PROVIDERS: Visit Provider Urology
DX: Z12.5 Encounter for screening for malignant neoplasm of prostate (principal); C61 Malignant neoplasm of prostate
CPT/HCPCS: 36415; 84153

== ENCOUNTER 2025-04-22 08:15 | Outpatient (AMB) | payer OTHER, MEDICAID, SELFPAY ==
--- NOTE | 2025-04-22 08:16 | A.OFFVIS_ITS ---
Intake Visit Reasons: follow up Intake Note: Patient is present for FOLLOW UP TELEHEALTH Urology Medication:TERAZOSIN,FINASTERIDE Blood Thinner:NONE Cost Clerk Required: No Accompanied by: Self / Same As Patient Allergies No Known Allergies (No Known Allergies*) Allergy (Verified 05/23/25 14:42) HPI Comments Details: Ruslan is a pleasant Tunisian-speaking male. He is seen for the following urologic conditions - prostate cancer - Lower urinary tract symptoms Telemedicine Evaluation 15 min Consultation Wis.dm [place] Video Tunisian translation in office performed a qualified biomedical technician Six-month follow-up PSA 3.0 Continue six-month interval surveillance Combination therapy for prostate lower urinary tract symptoms Finasteride 5 mg with terazosin 10 mg PSA 04/24 2.7, 08/24 3.1, 04/25 3.0 Prostate Cancer Grade Group 1, low volume initial management active surveillance 11/[address] Rodriguez November 2020 PSA diagnosis 6.6 09/23 ultrasound fusion prostate biopsy targeted all cores negative 04/23 - prostate MRI 1.2 cm left anterior apical PI-RADS 4, organ confined Initial therapy active surveillance with finasteride pT1c Prostate cancer pathology 12/20 Histologic type: Acinar adenocarcinoma [place] score: Marc Grade 3 + 3 = 6 (Parts B and H) LBM 5%, RBM 5% Tumor quantitation: Number cores positive: 2, Total number of cores: 12 % of tissue involved: less than 5% (Part B); 5-10% (Part H) - LVI, PN negative PSA 04/21 3.1, 10/23 2.3, 03/22 1.6, 12/22 2.8 Lower urinary tract symptoms Combination therapy 12/20 - finasteride 5 mg daily, tamsulosin 0.4 mg daily Primary complaint nocturia x3 down from 5-6 GreenLight laser performed October 2021 Laboratory investigations include - 12/19 4.4, 07/21 4.5 - 10/22 6.6 PFSH Medical History Mild recurrent major depression Microalbuminuria Bicytopenia Colon polyps Migraines Dyslipidemia Stroke Abdominal hernia BPH w/o urinary obs/LUTS Altered bowel function Elevated PSA Stroke Depression Diabetes HTN (hypertension) Surgical History H/O umbilical hernia repair History of colonoscopy Family History Mother No problems noted. Father Enlarged prostate Social History Household Members: Spouse and Children Housing: Apartment Alcohol intake: former Patient Tobacco Use Status: Never used Tobacco e-Cigarette/Vaping Use: Never Used Second Hand Smoke Exposure: No service: No Current occupational status: unemployed Current occupational exposures/hazards: No Cognitive needs: Yes Hearing needs: No Vision needs: Yes Review of Systems Const All systems reviewed & are unremarkable except as noted in HPI and below Reports no additional complaints Resp Reports no additional complaints GI Reports no additional complaints Reports as per HPI Musc Reports no additional complaints Physical Exam Telemedicine evaluation Appropriate responses Regular breathing rate and rhythm HEENT Head: Yes normal to inspection Ears: hearing grossly normal bilaterally Eyes General: appearance normal, both eyes and all related structures Neck Neck: Yes normal visual inspection Chest Chest palpation & inspection: normal inspection of the chest Resp Effort & Inspection: normal respiratory effort and able to speak in complete sentences Telehealth Telehealth Telehealth Platform: Wis.dm Location of provider rendering services: practice address Location of patient: address on file Patient Identification confirmed using: Name, : Yes Telehealth method: video Patient verbally consented to treatment: Yes Patient verbally consented to billing insurance company: Yes Patient informed of any privacy concerns related to visit: Yes Minutes spent on Phone/Video with Pt.: 15 Assessment & Plan Assessment & Plan (1) Elevated PSA: Comment: PSA 6 months Code(s): R97.20 - Elevated prostate specific antigen [PSA] Category: Medical (2) Prostate cancer: Comment: Low volume, low-grade 2020 Code(s): C61 - Malignant neoplasm of prostate Category: Medical Plan Continue surveillance Orders: Orders Prostate Specific Antigen 6 Months C61 - Malignant neoplasm of prostate Medications: Refilled terazosin 5 mg PO BEDTIME 90 caps 1RF 90 days C61 - Malignant neoplasm of prostate finasteride 5 mg PO DAILY 90 tabs 1RF 90 days C61 - Malignant neoplasm of prostate Patient Instructions: This note is constructed using voice recognition software. While every effort has been made to ensure accuracy cashier greeter errors may have been included. Imaging studies, laboratory and physical exam results were discussed and reviewed in detail. No major barriers to patient understanding were identified. An opportunity to ask questions regarding the treatment plan was provided. All questions were answered. The patient expressed understanding and agreement with the above treatment plan. The patient is aware they should contact our office by phone for worsening of their current condition or the appearance of new urologic symptoms. Compliance is encouraged with any medications and followup testing that is ordered. It is a privilege to participate in the urologic care of your patient. If you have any questions or concerns regarding treatment for the above conditions, or other urologic issues, please do not hesitate to contact me. The office telephone contact is [phone]. Sincerely, Dr Khurram Rodriguez MD, [facility] - Urology Compassionate Specialist Care for the Genitourinary System Coding Level of Care Code Tele Est Pt Level 3 (16295) Complex EM visit Add On G2211 Diagnoses Elevated PSA R97.20 Prostate cancer C61
--- OUTSIDE RECORDS SUMMARY | 2025-04-22 08:23 | XMS_ITS | Encounter Summary ---
Author Organization [facility] Address [address] [facility] 7 [place] [address] Care Team Providers Care Manager Oracle Database Name Role Phone Unavailable Primary Care Provider Unavailabl e Encounter Details Date Type Department Care Team (Latest Contact Info) Description 01/13/2019 Abstract [facility] CONVERSIONS Dental, Provider, DDS Social History [...]
--- OUTSIDE RECORDS SUMMARY | 2025-04-22 08:23 | XMS_ITS | Clinical Summary ---
Author Organization [facility] Address [address] [phone] Phone Care Team Providers Care Automated Teller Manager Name Role Phone Linnea Ramos MD Primary Care Provider Allergies No known active allergies Medications amLODIPine [...] tablet 06/05/2022 Activ e Easy Touch Pen Elliott 31G X 8 MM misc USE DIRECTED TO INJECT INSULIN 03/25/2022 Active Empagliflozin (Jardiance) 10 MG tablet Take 10 mg by mouth 1 (one) time each day in the morning Active Active Problems Problem Noted Date Diagnosed Date Chronic kidney disease, stage 2 (mild) 07/29/202 4 Essential (primary) hypertension 06/06/2022 Diabetes mellitus [...] Care Team (Late st Contact Info) Description 08/08/2025 4:30 PM EST Office Visit [facility] [address] [place] [phone] Cyril Cottrell MD [address] [facility] [address] [place] [address] Health Maintenance Due Date Last [...] age to complete this topic [place] Care Teams Automated Teller Manager Relationship Specialty Start Date End Date Linnea Ramos MD [address] [place] [address] PCP - General Internal Medicine 03/25/22
== END 2025-04-22 09:23 | disposition home or self-care (01) ==
LOC: HO.HUSH 08:15
PROVIDERS: PCP Internal Medicine; Visit Provider Urology
DX: R97.20 Elevated prostate specific antigen [PSA] (principal); C61 Malignant neoplasm of prostate
CPT/HCPCS: 99213

== ENCOUNTER 2025-05-23 13:41 | Outpatient (AMB) | payer OTHER, MEDICAID, SELFPAY ==
--- NOTE | 2025-05-23 14:12 | A.OFFPC_ITS ---
Vital Signs 05/23/25 14:14 Height 5 ft 4 in Weight 184 lb BMI 31.6 BP 126/60 Blood Pressure Location Rt brachial Position Sitting Respiration 18 Pulse 63 Pulse Source Pulse Oximeter Temp 97.3 F Temp Source Temporal Artery Scan Pulse Oximetry (%) 93 Oxygen Delivery Method Room Air Intake Visit Reasons: 4 months Security Control Assessor Required: No Accompanied by: Self / Same As Patient Allergies No Known Allergies (No Known Allergies*) Allergy (Verified 05/23/25 14:42) Medication List - Last Reconciled 05/23/25 by Linnea Subramanian MD amlodipine 10 mg PO DAILY 90 days atorvastatin 80 mg PO BEDTIME 90 days cholecalciferol (vitamin D3) (Vitamin D3) 50 mcg PO DAILY 90 days citalopram 20 mg PO DAILY 90 days dorzolamide-timolol 22.3-6.8 mg/mL 1 drp ophthalmic (eye) BID empagliflozin (Jardiance) 25 mg PO DAILY 90 days enalapril maleate 20 mg PO DAILY 90 days finasteride 5 mg PO DAILY 90 days flash glucose sensor (FreeStyle Uysuf 14 Day Sensor kit) As directed hydrocortisone 1% (Anti-Itch (hydrocortisone)) 1 appl topical TID PRN 2 weeks insulin degludec (Tresiba FlexTouch U-100 insulin) 22 units (0.22 mL) subcut BID 90 days latanoprost 0.005% 1 drp ophthalmic (eye) DAILY lubiprostone 8 mcg PO BID metformin 500 mg PO BID 90 days metoprolol tartrate 50 mg PO BID 90 days pen needle, diabetic USE 2 TIMES DAILY pen needle, diabetic As directed simethicone (Gas Relief (simethicone)) 125 mg PO TID PRN 30 days terazosin 5 mg PO BEDTIME 90 days Tobacco use date assessed: 09/06/24 Dental Screening Dental Screen Date: 05/23/25 Did you have a dental visit in the last 12 months?: Yes Did you have a dental problem in the last 6 months where you did not have access to dental care?: No Was dental information given to patient?: Patient has dentist HPI HPI Comments History of Present Illness Details The patient is a 59-year-old male presenting with the management of chronic conditions including hypertension, hyperlipidemia, diabetes mellitus type 2, and benign prostatic hyperplasia. Hypertension has been managed with amlodipine and enalapril, with current blood pressure readings at 126/60 mmHg, which is within the target range of less than 130/80 mmHg. Hyperlipidemia is being treated with atorvastatin, with recent LDL levels at 76 mg/dL, slightly above the target of 70 mg/dL, but considered acceptable by the clinician. Diabetes mellitus type 2 is managed with metformin, Jardiance, and Tresiba, with a recent improvement in HbA1c from 7.9% to 7.2%. The patient denies any new weakness or tremors and reports no issues with balance or coordination. Benign prostatic hyperplasia is being managed with finasteride and terazosin, with no reported adverse effects. The patient has a history of left-sided hemiparesis, but is able to ambulate with the use of a cane. [facility] Medical History (Updated 05/23/25 @ 14:50 by Linnea Subramanian MD) Mild recurrent major depression Microalbuminuria Bicytopenia Colon polyps Migraines Dyslipidemia Stroke Abdominal hernia BPH w/o urinary obs/LUTS Altered bowel function Elevated PSA Stroke Depression Diabetes HTN (hypertension) Surgical History H/O umbilical hernia repair History of colonoscopy Family History Mother No problems noted. Father Enlarged prostate Social History Household Members: Spouse and Children Housing: Apartment Alcohol intake: former Patient Tobacco Use Status: Never used Tobacco e-Cigarette/Vaping Use: Never Used Second Hand Smoke Exposure: No service: No Current occupational status: unemployed Current occupational exposures/hazards: No Cognitive needs: Yes Hearing needs: No Vision needs: Yes Questionnaire Thrive Questionnaire Date Thrive assessed: 01/13/25 I am a: Patient What is your living situation today?: I have a steady place to live Within the past 12 months, did the food you bought not last and you didn't have the money to get more?: Never true Within the past 12 months, did you worry whether your food would run out before you got money to buy more?: Never true Do you have trouble paying for medicines?: No Do you have trouble getting transportation to medical appointments?: No Do you have trouble paying your heating and electricity bill?: No Do you have trouble taking care of your child, family member or friend?: No Do you have trouble with day-to-day activities such as bathing, preparing meals, shopping, managing finances, etc.?: No Are you currently unemployed and looking for a job?: Yes Are you interested in more education?: No Please select the resources that you would like help with: None Currently or been in a relationship where the following occur: No concerns reported THRIVE Score: 0 CORAL-7 AMB Questionnaire CORAL-7 Date CORAL - 7 assessed: 01/13/25 Being so restless that it is hard to sit still: 0 = Not at all Becoming easily annoyed or irritable: 0 = Not at all Feeling afraid as if something awful might happen: 0 = Not at all Source: Developed by Drs. Jesus Cox, Latisha Guaman, Bill Adams and colleagues, with an educational rene from [employer]. Review of Systems Const All systems reviewed & are unremarkable except as noted in HPI and below Card Denies chest pain at rest, Denies chest pain with activity, Denies edema, Denies irregular heart rhythm, Denies claudication, Denies dyspnea, Denies dyspnea on exertion, Denies orthopnea, Denies paroxysmal nocturnal dyspnea and Denies slow heart rate Resp Denies cough, Denies dyspnea and Denies dyspnea on exertion Physical exam (Primary Care) Vital Signs: Last Vital Signs Temp 97.3 F 05/23/25 14:14 Pulse 63 05/23/25 14:14 Resp 18 05/23/25 14:14 BP 126/60 05/23/25 14:14 Pulse Ox 93 05/23/25 14:14 Oxygen Delivery Method Room Air 05/23/25 14:14 BMI result Body Mass Index 31.6 Tobacco/Smoking Status: Tobacco use Status Tobacco use date assessed 09/06/24 05/23/25 14:12 Patient Tobacco Use Status Never used Tobacco 05/23/25 14:12 e-Cigarette/Vaping Use Never Used 05/23/25 14:12 Thrive Assessment: Date of Thrive Assessment Date Thrive assessed 01/13/25 05/23/25 14:12 Currently or been in a relationship where the following occur: No concerns reported Resp Effort & Inspection: normal respiratory effort Auscultation: clear to auscultation bilaterally Cardio Jugular venous distension: no JVD Rate: regular rate Rhythm: regular rhythm Heart sounds: S1 normal heart sound present and S2 normal heart sound present Results AMB Hemoglobin A1c AMB Hemoglobin A1c 7.2 % Last Edit by JIM Nichols on 05/23/25 14:32 Results Reviewed Results Reviewed: Laboratory Last Values Hgb A1c (Clinic) 7.2 % (4.0-6.0) H 05/23/25 14:28 Coding Level of Care Code Est Pt Level 4 (83152) Complex EM visit Add On G2211 Diagnoses Mild recurrent major depression F33.0 Primary hypertension I10 Hypertension type: primary hypertension Hyperlipidemia LDL goal <70 E78.5 Type 2 diabetes mellitus with hyperglycemia, with long-term current use of insulin E11.65; Z79.4 Diabetes mellitus type: type 2 Diabetes mellitus regional intermodal truck driver insulin use: with fdc use Diabetes mellitus complication status: with hyperglycemia Stroke I63.9 Time Spent (min) 23 Assessment & Plan Assessment & Plan (1) Mild recurrent major depression: Code(s): F33.0 - Major depressive disorder, recurrent, mild Category: Medical (2) HTN (hypertension): Code(s): I10 - Essential (primary) hypertension Category: Medical Qualifiers: Hypertension type: primary hypertension Qualified Code(s): I10 - Essential (primary) hypertension (3) Hyperlipidemia LDL goal <70: Code(s): E78.5 - Hyperlipidemia, unspecified Category: Medical (4) Diabetes: Code(s): E11.9 - Type 2 diabetes mellitus without complications Category: Medical Qualifiers: Diabetes mellitus type: type 2 Diabetes mellitus fdc insulin use: with regional intermodal truck driver use Diabetes mellitus complication status: with hyperglycemia Qualified Code(s): E11.65 - Type 2 diabetes mellitus with hyperglycemia; Z79.4 - alf (current) use of insulin (5) Stroke: Comment: 2009 was left with left sided paralysis Code(s): I63.9 - Cerebral infarction, unspecified Category: Medical Plan Plan Patient was informed and verbally consented to the use of an ambient scribe for clinic note documentation during this visit. 1. Hypertension The patient's hypertension is currently managed with amlodipine and enalapril, maintaining blood pressure within the target range. 2. Hyperlipidemia Hyperlipidemia is being treated with atorvastatin, with LDL levels slightly above target but deemed acceptable. 3. Diabetes Mellitus Type 2 Diabetes management includes metformin, Jardiance, and Tresiba, with recent improvement in HbA1c levels. 4. Benign Prostatic Hyperplasia Benign prostatic hyperplasia is managed with finasteride and terazosin, with no adverse effects reported. 5. Hemiparesis The patient has left-sided hemiparesis but is able to walk with a cane. Orders: Orders AMB Hemoglobin A1c Today E11.65 - Type 2 diabetes mellitus with hyperglycemia, Z79.4 - remote computer terminal operator (current) use of insulin Microalbumin, Random (w Creat) 4 Months R80.9 - Proteinuria, unspecified Vitamin D 25-OH Total 4 Months E55.9 - Vitamin D deficiency, unspecified MR head/brain wo con Today R51.9 - Headache, unspecified Lipid Panel 4 Months E78.5 - Hyperlipidemia, unspecified Vitamin B12 and Folate 4 Months E53.8 - Deficiency of other specified B group vitamins Comprehensive [place]. Panel Fast 4 Months E11.65 - Type 2 diabetes mellitus with hyperglycemia, Z79.4 - remote computer terminal operator (current) use of insulin Medications: Refilled atorvastatin 80 mg PO BEDTIME 90 tabs 1RF 90 days cholecalciferol (vitamin D3) (Vitamin D3) 50 mcg PO DAILY 90 caps 1RF 90 days empagliflozin (Jardiance) 25 mg PO DAILY 90 tabs 1RF 90 days enalapril maleate 20 mg PO DAILY 90 tabs 1RF 90 days metformin 500 mg PO BID 180 tabs 1RF 90 days E11.9 - Type 2 diabetes mellitus without complications amlodipine 10 mg PO DAILY 90 tabs 1RF 90 days citalopram 20 mg PO DAILY 90 tabs 1RF 90 days metoprolol tartrate 50 mg PO BID 180 tabs 3RF 90 days I10 - Essential (primary) hypertension
[2025-05-23 14:14] VITALS: BP 126/60; PULSE 63; RESP 18; TEMP 36.3; O2SAT 93; BMI 31.6
== END 2025-05-23 14:54 | disposition home or self-care (01) ==
LOC: HO.HMCH 13:41
PROVIDERS: PCP Internal Medicine; Visit Provider Internal Medicine
DX: E11.65 Type 2 diabetes mellitus with hyperglycemia (principal); Z79.4 Long term (current) use of insulin; I63.9 Cerebral infarction, unspecified; F33.0 Major depressive disorder, recurrent, mild; I10 Essential (primary) hypertension; E78.5 Hyperlipidemia, unspecified

== ENCOUNTER → 2025-05-23 13:41 | Outpatient (BNVA) | payer MEDICARE, MEDICAID, SELFPAY | PROVIDERS: PCP Internal Medicine; Visit Provider Internal Medicine | DX: I10 Essential (primary) hypertension (principal); E78.5 Hyperlipidemia, unspecified; E11.9 Type 2 diabetes mellitus without complications; N40.0 Benign prostatic hyperplasia without lower urinary tract symptoms; F33.0 Major depressive disorder, recurrent, mild; E11.65 Type 2 diabetes mellitus with hyperglycemia; I69.354 Hemiplegia and hemiparesis following cerebral infarction affecting left non-dominant side; R51.9 Headache, unspecified; E53.8 Deficiency of other specified B group vitamins; Z79.4 Long term (current) use of insulin | CPT/HCPCS: 83036 ==

== ENCOUNTER 2025-06-02 16:40 | Outpatient (REF) | payer OTHER, MEDICAID, SELFPAY ==
--- NOTE | ~2025-06-02 | MR_ITS ---
CLINICAL HISTORY: R51.9 - Headache, unspecified MR Brain without gadolinium Comparison: None provided Findings: There is a large area of encephalomalacia within the right MCA distribution including a large area of cystic encephalomalacia. No restricted diffusion. No intra-axial mass or hemorrhage. No midline shift. No hydrocephalus. Vascular flow voids are intact. The orbits are normal. There are multiple small air-fluid levels within the right mastoid air cells. The paranasal sinuses and left mastoid air cells are well-aerated. No focal bone lesion. IMPRESSION: 1. Large chronic right MCA infarct. 2. No acute abnormality of the brain. 3. Inflammatory changes of the right mastoid air cells. This document has been electronically signed by: Kimberley Lee MD on 06/02/2025 18:55:43
--- OUTSIDE RECORDS SUMMARY | 2025-06-02 17:06 | XMS_ITS | Clinical Summary ---
Author Organization [employer] Address [address] [facility] [address] [place] [address] Care Team Providers Care Hospital Chief Executive Officer Name Role Phone Unavailable Primary Care Provider Unavailabl e Encounters Date Type Department Care Team Description 04/07/2025 Telephone [facility] [address] [place], [place] [phone] Cruzito Dallas MD 03/17/2025 Telephone [facility] [address] [place] [address] Cruzito Dallas MD New pt appt from Last 3 Months Social History Tobacco Use Types Packs/Day Years [...] FOBT 1963 Lipid Panel 1963 Sigmoidoscopy 1963 Disability Screening 1963 Alcohol/Substance Use Screening 1975 Tobacco Screening 1975 DTaP/Tdap/Td Vaccines (1 - Tdap) 1982 Pneumococcal Vaccine: 50+ Ye ars (1 of 1 - PCV) 2013 Zoster Vaccines (1 of 2) 2013 COVID-19 Vaccine ( - 2023-2 5 season) 2025 Influenza Vaccine (#1) 2025 RSV Patients and Pa tients Aged 60 [...] patient's age to complete this topic Meningococcal B Vaccine Aged Out No l onger eligible based on patient's age to complete [...]
--- OUTSIDE RECORDS SUMMARY | 2025-06-02 17:06 | XMS_ITS | Encounter Summary ---
Author Organization [facility] Address [address] [facility] [address] [place] [address] Care Team Providers Care Spinning Lathe Operator Hydraulic Name Role Phone Unavailable Primary Care Provider Unavailabl e Encounter Details Date Type Department Care Team (Latest Contact Info) Description 01/13/2019 Abstract [facility] CONVERSIONS Dental, Provider, DDS Social History [...]
--- OUTSIDE RECORDS SUMMARY | 2025-06-02 17:06 | XMS_ITS | Encounter Summary ---
Author Organization [employer] [facility] Address [address] [facility] [address] [place] [id number] Care Team Providers Care C Web Developer Name Role Phone Unavailable Primary Care Provider Unavailabl e Encounter Details Date Type Department Care Team (Latest Contact Info) Description 06/27/2021 Abstract [facility] CONVERSIONS Dental, Provider, DDS Social History [...]
--- OUTSIDE RECORDS SUMMARY | 2025-06-02 17:06 | XMS_ITS | Encounter Summary ---
Author Organization [employer] [facility] Address [address] [facility] [address] [place] [address] Care Team Providers Care Assisted Living Executive Director Name Role Phone Unavailable Primary Care Provider Unavailabl e Encounter Details Date Type Department Care Team (Latest Contact Info) Description 07/03/[address] [facility] CONVERSIONS Dental, Provider, DDS Social History [...]
== END 2025-06-02 16:41 | disposition home or self-care (01) ==
LOC: HO.MRI 16:40
PROVIDERS: PCP Internal Medicine; Visit Provider Internal Medicine
DX: R51.9 Headache, unspecified (principal)
CPT/HCPCS: 70551

== ENCOUNTER → 2025-06-02 16:46 | Outpatient (BNV) | payer OTHER, MEDICAID, SELFPAY | PROVIDERS: PCP Internal Medicine; Visit Provider Radiology Diagnostic Radiology | DX: I63.311 Cerebral infarction due to thrombosis of right middle cerebral artery (principal); H74.8X1 Other specified disorders of right middle ear and mastoid | CPT/HCPCS: 70551 ==